=== PATIENT | female | born 1970 | race Caucasian/White ===

== ENCOUNTER 2024-10-31 19:06 | Inpatient (IN) ==
[2024-10-31] MEDS: MoRPHine SULFATE 4 MG/ML 1 ML CARP\\VIAL IV STA ×2 (19:46→23:16)
[2024-10-31] MEDS: ACETAMINOPHEN 1,000 MG/100 ML VIAL IV STA (19:46)
[2024-10-31 20:08] LABS: Basophils # (auto) 0.06 K/uL (0.00-0.20); Basophils % (auto) 0.5 %; Eosinophils # (auto) 0.14 K/uL (0.00-0.50); Eosinophils % (auto) 1.2 %; Hematocrit (blood only) 35.9 % (37.0-47.0); Hemoglobin 12.3 g/dl (12.0-16.0); Immature Granulocytes # (auto) 0.08 K/uL (0.01-0.20); Immature Granulocytes % (auto) 0.7 %; Lymphocytes # (auto) 2.24 K/uL (1.20-3.40); Lymphocytes % (auto) 18.9 %; Mean Corpuscular Hemoglobin 28.9 pg (25.0-34.0); Mean Corpuscular Hgb Conc 34.3 g/dL (32.0-36.0); Mean Corpuscular Volume 84.5 fL (80.0-100.0); Monocytes # (auto) 0.68 K/uL (0.11-0.59); Monocytes % (auto) 5.7 %; Neutrophils # (auto) 8.63 K/uL (1.40-6.50); Platelet Count 256 K/uL (130-400); RDW Coefficient of Variation 13.2 % (11.5-14.5); RDW Standard Deviation 40.3 fL (36.4-46.3); Red Blood Count 4.25 M/uL (4.20-5.40); White Blood Count 11.83 K/ul (4.8-10.8)
[2024-10-31 20:17] LABS: Albumin Globulin Ratio 1.4 (0.9-2); Albumin Level 3.8 gm/dl (3.4-5.0); BUN Creatinine Ratio 14.4 (10-20); Bilirubin,Total 0.4 mg/dl (0.2-1.0); Calcium 8.9 mg/dl (8.6-10.3); Creatinine Clr Calc Pharmacy 53.9 ml/min; Globulin 2.8 gm/dl (2.5-4.0); Potassium 2.9 mmol/L (3.5-5.1); Total Protein 6.6 gm/dl (6.0-8.3)
[2024-10-31 20:26] LABS: Prothrombin Time 10.9 Seconds (9.0-12.0)
--- NOTE | 2024-10-31 21:04 | XRay Report ---
Exam(s): XR LEFT KNEE, 1-2 views EXAM: XR Left Knee, 1 or 2 Views CLINICAL HISTORY: Reason for exam: pain. TECHNIQUE: Frontal and/or lateral views of the left knee. COMPARISON: No relevant prior studies available. FINDINGS: Bones/joints: Severe arthritic changes. Large joint effusion. No acute fracture or malalignment. IMPRESSION: 1. Severe arthritic changes. 2. Large joint effusion. Electronically signed by: Nghia Mcgee MD 10/31/24 21:02 PM
--- NOTE | 2024-10-31 21:04 | XRay Report ---
Exam(s): XR CXR 1 VIEW EXAM: XR Chest, 1 View CLINICAL HISTORY: Reason for exam: trauma. TECHNIQUE: Frontal view of the chest. COMPARISON: No relevant prior studies available. FINDINGS: Lungs: No consolidation. No overt edema. Pleural space: No pleural effusion. No pneumothorax. Heart: Cardiomegaly. Bones/joints: Scoliosis. Tubes, lines and devices: Spinal stimulator leads in place. IMPRESSION: No acute findings in the chest. Electronically signed by: Nghia Mcgee MD 10/31/24 21:03 PM
--- NOTE | 2024-10-31 21:07 | XRay Report ---
Exam(s): XR LEFT SHOULDER, 2+ views EXAM: XR Left Shoulder Complete, 2 or More Views CLINICAL HISTORY: Reason for exam: trauma. TECHNIQUE: Two or more views of the left shoulder. COMPARISON: No relevant prior studies available. FINDINGS: Bones/joints: Severe degenerative changes. No acute fracture or malalignment. High riding humeral head consistent with chronic underlying rotator cuff tearing. Soft tissues: Unremarkable. IMPRESSION: 1. No acute fracture or malalignment. 2. Severe degenerative changes. Electronically signed by: Nghia Mcgee MD 10/31/24 21:06 PM
--- NOTE | 2024-10-31 21:09 | XRay Report ---
Exam(s): XR HIP + PELVIS, 1 view EXAM: XR Left Hip With Pelvis When Performed, 2 or 3 Views CLINICAL HISTORY: Reason for exam: fall, injury. TECHNIQUE: Two or three views of the left hip with pelvis when performed. COMPARISON: No relevant prior studies available. FINDINGS: Bones/joints: No acute fracture or malalignment. Osteitis at the pubic symphysis. Moderate degenerative changes in the hips. IMPRESSION: No acute fracture or malalignment. Electronically signed by: Nghia Mcgee MD 10/31/24 21:07 PM
--- NOTE | 2024-10-31 22:21 | Emergency Department Note ---
Impression & Plan Fracture of ramus of left pubis, Fall, Acute pain of left shoulder, Knee pain, left, Hypokalemia, Prolonged QT interval ED Provider Note ED Provider Note NAME: KOKI CUNHA AGE:54 SEX: Female : 1970 ARRIVES VIA: EMS INFORMANT: Patient ED PROVIDER(s): Gladys Lewis DO CHIEF COMPLAINT: Left hip pain HPI: This is a 54-year-old female who presents to the emergency department with complaints of left hip pain after fall. Patient states her left knee which she has chronic problems with gave out and she fell to her left, landing on her hip and left shoulder. She denies head injury or loss of consciousness. She denies any use of antiplatelet or anticoagulation medications. Patient denies any radiation of pain further down the leg, denies any paresthesias. Patient states the pain seems to wrap around her left hip and come into her left groin. She denies any incontinence following this episode. She denies any chest pain, other abdominal pain, difficulty breathing, dizziness, vomiting, or vision changes. PAST MEDICAL HISTORY:See Below PAST SURGICAL HISTORY:See Below FAMILY HISTORY:See Below SOCIAL HISTORY:See Below HOME MEDICATIONS:See Below ALLERGIES:See Below VITALS:See Below PHYSICAL EXAMINATION: GENERAL: alert, unwell appearing, well nourished, moderate distress, non-toxic EYE EXAM: normal conjunctiva, PERRL and EOM's grossly intact OROPHARYNX: no exudate, no erythema, lips, buccal mucosa, and tongue normal and mucous membranes are dry NECK: supple, no nuchal rigidity, no adenopathy, non-tender LUNGS: Clear to auscultation. Normal chest wall mechanics, no w/r/r HEART: no murmurs, S1 normal and S2 normal ABDOMEN: abdomen soft, non-tender, normo-active bowel sounds, no masses, no rebound or guarding. BACK: Back is symmetrical on inspection and there is no deformity, no midline tenderness, no CVA tenderness. SKIN: no rashes, petechiae, orbruising UPPER EXTREMITIES: upper extremities are grossly normal. FROM, nml pulses b/l. LOWER EXTREMITIES: No pitting edema. FROM right lower extremity, nml pulses b/l. Sensation intact bilaterally. Mild joint effusion noted at the left knee, no overlying ecchymosis or erythema, pain with range of motion testing at the left hip, pain with palpation along the left lateral and left anterior hip, no obvious deformity of the left hip, patient does hold the left extremity externally rotated although it does not appear shortened NEURO EXAM: Normal sensorium, cranial nerves II-XII grossly intact, normal speech, no facial droop,nogross weakness of arms, no gross weakness of legs. Gross sensation intact. No ataxia. Vital Signs: reviewed and remarkable Differential Diagnosis: Fracture, subluxation, dislocation, contusion, ligamentous injury, neurovascular, compartment syndrome, rhabdomyolysis, as well as other pathologies. MEDICAL DECISION MAKING: This is a 54-year-old female who presents emergency department due to concern for left hip pain following a fall. No use of antiplatelet or anticoagulation medication. Patient was afebrile and hemodynamically stable on arrival. Labs drawn and sent, IV established, EKG and multiple x-rays performed at bedside interpreted me and patient monitored on telemetry. Initial x-rays read by outside radiology as negative however due to my concern for an occult pubic rami fracture I asked them to reread and they then confirmed the appearance of pubic rami fracture. Patient was given IV morphine here in addition to IV Tylenol and started on gentle IV fluid hydration. She did have improvement in her pain. I discussed the results with her. Due to concern for need for further pain control and orthopedic consultation despite likely nonoperative intervention, case discussed with the hospitalist for additional evaluation and management. Patient was neurovascularly intact throughout. Patient does have a history of chronic left knee problems, changes on the x-ray appeared chronic, no acute fracture or dislocation. I have a low suspicion for any additional occult traumatic injury. Patient had no other new or evolving concerns or complaints on repeat examination at bedside. Consultation(s): 2255: Discussed with Dr. Lopez, [facility] hospitalist team, for additional evaluation and management. ER Treatment Provided: See below Diagnostics Interpreted By Me: -ECG: Normal sinus at 68, normal axis, normal QRS, prolonged QTc of 638, no acute ST/T wave changes -Cardiac Monitoring: An order was placed for continuous cardiac monitoring. The monitor shows a rate of 70 with normal sinus rhythm. -Laboratory studies: As stated above and show below. -Imaging studies: X-ray Chest: A single view study of the chest was reviewed and was negative for cardiomegaly, focal infiltrate, effusion, pulmonary edema, or wide mediastinum. No obvious fracture or pneumothorax. X-ray left shoulder: No obvious fracture or dislocation X-ray pelvis/left hip: Pubic rami fracture noted, no other fracture dislocation noted at the proximal femur Triage Nursing Note Reviewed Prior/Outside Records Reviewed Past Med/Surg History Problem List (Updated 11/01/24 @ 18:21 by Rudy Vazquez DO) Osteoarthritis of left knee Complex psychiatric condition Acute kidney injury Ambulatory dysfunction Femoral condyle fracture Effusion, left knee Prolonged QT interval (Acute) Hypokalemia (Acute) Knee pain, left (Acute) Acute pain of left shoulder (Acute) Fall (Acute) Fracture of ramus of left pubis (Acute) Social History Smoking Status: Current every day smoker Tobacco Type: E-cigarettes / Vaping Second Hand Exposure: No; Do You Dip or Chew Tobacco: No; Hx Alcohol Use: Yes Alcohol type: other Hx Substance Use: No Preferred Language: Maltese Communication Ability: Effective 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 Beliefs That Will Affect Care: None Current Living Situation: Family Other Information That Helps Us Care for You: No Feels Safe at Home: Yes Safety Concerns: Feels Safe At This Time Assistive Devices: None Allergies Allergies Allergy/AdvReac Type Severity Reaction Status Date / Time No Known Allergies Allergy Verified 10/31/24 23:43 Home Meds Home Medications Medication Instructions Recorded Confirmed amlodipine 5 mg tablet 5 mg PO QAM 10/31/24 10/31/24 clonazepam 1 mg tablet 1 mg PO BID PRN Anxiety 10/31/24 10/31/24 dextroamphetamine-amphetamine 20 20 mg PO BID 10/31/24 11/01/24 mg tablet meloxicam 15 mg tablet 15 mg PO QAM 10/31/24 10/31/24 duloxetine 60 mg capsule,delayed 60 mg PO QPM 11/01/24 11/01/24 release gabapentin 800 mg tablet 800 mg PO AMPM 11/01/24 11/01/24 ketoconazole 2 % shampoo 1 applic topical Q3D 11/01/24 11/01/24 lurasidone 40 mg tablet 40 mg PO QPM 11/01/24 11/01/24 mometasone 0.1 % topical ointment 1 applic topical QAM 11/01/24 11/01/24 naproxen 500 mg tablet 1,000 mg PO BID PRN Pain 11/01/24 11/01/24 Results & Data (ED) Vital Signs Vital Signs - 24 hr 10/31/24 19:09 10/31/24 19:34 10/31/24 21:00 Temperature 36.8 C Temperature Source Oral Pulse Rate 68 72 Pulse Rate [Apical] 67 Pulse Rhythm [Apical] Regular Respiratory Rate 18 18 Respiratory Effort / Characteristics Non-Labored Respiratory Depth Normal Normal Blood Pressure 136/72 Blood Pressure [Right Arm] 142/92 H Blood Pressure Mean 93 Blood Pressure Mean [Right Arm] 108 Pulse Oximetry 90 92 Oxygen Delivery Method Room Air Nasal Cannula Oxygen Flow Rate Sepsis Recent Fever Within 48 Hours No Sepsis New/Unexplained Change in Mental Status No Sepsis Action Taken by Nursing No Action Required 10/31/24 23:03 10/31/24 23:04 11/01/24 01:00 Temperature Temperature Source Pulse Rate 68 69 70 Pulse Rate [Apical] Pulse Rhythm [Apical] Respiratory Rate 16 15 Respiratory Effort / Characteristics Respiratory Depth Blood Pressure 129/79 Blood Pressure [Right Arm] Blood Pressure Mean 95 Blood Pressure Mean [Right Arm] Pulse Oximetry 95 93 Oxygen Delivery Method Nasal Cannula Nasal Cannula Oxygen Flow Rate 2 2 Sepsis Recent Fever Within 48 Hours Sepsis New/Unexplained Change in Mental Status Sepsis Action Taken by Nursing 11/01/24 01:22 Temperature Temperature Source Pulse Rate Pulse Rate [Apical] 66 Pulse Rhythm [Apical] Respiratory Rate 16 Respiratory Effort / Characteristics Respiratory Depth Blood Pressure Blood Pressure [Right Arm] 140/84 Blood Pressure Mean Blood Pressure Mean [Right Arm] 102 Pulse Oximetry 94 Oxygen Delivery Method Nasal Cannula Oxygen Flow Rate 2 Sepsis Recent Fever Within 48 Hours Sepsis New/Unexplained Change in Mental Status Sepsis Action Taken by Nursing Laboratory Data 11/01/24 05:32 11/02/24 08:07 Lab Results 10/31/24 Range/Units 19:43 WBC 11.83 H (4.8-10.8) K/ul RBC 4.25 (4.20-5.40) M/uL Hgb 12.3 (12.0-16.0) g/dl Hct 35.9 L (37.0-47.0) % MCV 84.5 (80.0-100.0) fL MCH 28.9 (25.0-34.0) pg MCHC 34.3 (32.0-36.0) g/dL RDW Std Deviation 40.3 (36.4-46.3) fL RDW Coeff of Aditya 13.2 (11.5-14.5) % Plt Count 256 (130-400) K/uL MPV 10.0 (9.4-12.4) fL Immature Gran % (Auto) 0.7 % Neut % (Auto) 73.0 % Lymph % (Auto) 18.9 % [place] % (Auto) 5.7 % Eos % (Auto) 1.2 % Baso % (Auto) 0.5 % Neut # (Auto) 8.63 H (1.40-6.50) K/uL Lymph # (Auto) 2.24 (1.20-3.40) K/uL [place] # (Auto) 0.68 H (0.11-0.59) K/uL Eos # (Auto) 0.14 (0.00-0.50) K/uL Baso # (Auto) 0.06 (0.00-0.20) K/uL Immature Gran # (Auto) 0.08 (0.01-0.20) K/uL PT 10.9 (9.0-12.0) Seconds INR 1.0 (0.9-1.1) Sodium 142 (136-145) mmol/L Potassium 2.9 L (3.5-5.1) mmol/L Chloride 100 (98-107) mmol/L Carbon Dioxide 37 H (21-32) mmol/L Anion Gap 5 (3-11) BUN 21 (6-23) mg/dl Creatinine 1.46 H (0.6-1.2) mg/dl Est Cr Clr Drug Dosing 53.9 ml/min eGFR 41.99 BUN/Creatinine Ratio 14.4 (10-20) Glucose 119 H (70-99(Fasting)) mg/dl Calcium 8.9 (8.6-10.3) mg/dl Magnesium 2.0 (1.7-2.4) mg/dl Total Bilirubin 0.4 (0.2-1.0) mg/dl AST 16 (13-39) U/L ALT 11 (7-52) U/L Alkaline Phosphatase 125 H (34-104) U/L Total Protein 6.6 (6.0-8.3) gm/dl Albumin 3.8 (3.4-5.0) gm/dl Globulin 2.8 (2.5-4.0) gm/dl Albumin/Globulin Ratio 1.4 (0.9-2) Administered Medications Acetaminophen (Acetaminophen 500 Mg Tab) 1,000 mg PO TID PRN PRN Reason: Pain or Fever Stop: 12/01/24 02:48 Last Admin: 11/01/24 16:27 Dose: 1,000 mg Documented By: JANICE Amlodipine Besylate (Amlodipine Besylate 5 Mg Tab) 5 mg PO QAM RENUKA Stop: 12/01/24 08:59 Last Admin: 11/02/24 09:17 Dose: 5 mg Documented By: Admin: 11/01/24 08:41 Dose: 5 mg Documented By: JANICE Amphetamine/Dextroamphetamine (Dextroamphetamine/Amphetamine Ir 20 Mg Tab) 40 mg PO DAILY RENUKA Stop: 11/15/24 11:44 Last Admin: 11/02/24 09:27 Dose: 40 mg Documented By: Admin: 11/01/24 13:11 Dose: 40 mg Documented By: JANICE Clonazepam (Clonazepam 1 Mg Tab) 1 mg PO BID PRN PRN Reason: Anxiety Stop: 12/01/24 02:48 Last Admin: 11/01/24 11:20 Dose: 1 mg Documented By: JANICE Duloxetine HCl (Duloxetine Hcl 60 Mg Cap) 60 mg PO QPM RENUKA Stop: 12/01/24 20:59 Last Admin: 11/01/24 20:38 Dose: 60 mg Documented By: JERED Enoxaparin Sodium (Enoxaparin Inj 40 Mg/0.4 Ml Syr) 40 mg SQ Q24H RENUKA Stop: 12/01/24 08:59 Last Admin: 11/02/24 09:18 Dose: 40 mg Documented By: Admin: 11/01/24 08:41 Dose: 40 mg Documented By: JANICE Lurasidone HCl (Lurasidone Hcl 20 Mg Tab) 40 mg PO QPM RENUKA Stop: 12/01/24 20:59 Last Admin: 11/01/24 20:38 Dose: 40 mg Documented By: JERED Polyethylene Glycol (Polyethylene (Miralax) 17 Gm Pack) 17 gm PO DAILY RENUKA Stop: 12/02/24 08:59 Last Admin: 11/02/24 09:50 Dose: Not Given Documented By: SUELLEN Discontinued Medications Gabapentin (Gabapentin 800 Mg Tab) 800 mg PO BID RENUKA Stop: 12/01/24 08:59 Last Admin: 11/01/24 08:41 Dose: 800 mg Documented By: JANICE Gabapentin (Gabapentin 800 Mg Tab) 800 mg PO TID RENUKA Stop: 12/01/24 13:59 Last Admin: 11/02/24 09:17 Dose: 800 mg Documented By: Admin: 11/01/24 20:38 Dose: 800 mg Documented By: Admin: 11/01/24 13:12 Dose: Not Given Documented By: JANICE Hydromorphone HCl (Hydromorphone Inj 0.5 Mg/0.5 Ml Syr) 0.5 mg IV Q6H PRN PRN Reason: Severe Pain (Scale 7, 8, 9,10) Stop: 11/15/24 02:48 Last Admin: 11/01/24 08:46 Dose: 0.5 mg Documented By: Admin: 11/01/24 03:03 Dose: 0.5 mg Documented By: JERED Hydromorphone HCl (Hydromorphone Inj 0.5 Mg/0.5 Ml Syr) 0.5 mg IV NOW STA Stop: 11/01/24 11:37 Last Admin: 11/01/24 13:11 Dose: 0.5 mg Documented By: JANICE Acetaminophen (Ofirmev) 1,000 mg in 100 mls @ 400 mls/hr IV NOW STA Stop: 10/31/24 19:49 Last Infusion: 10/31/24 20:20 Dose: Infused Documented By: Admin: 10/31/24 19:46 Dose: 400 mls/hr Documented By: BRUNO Magnesium Sulfate/Dextrose (Magnesium Sulfate / D5w) 1 gm in 100 mls @ 100 mls/hr IV Q1H RENUKA Stop: 11/01/24 00:20 Last Infusion: 11/01/24 01:19 Dose: Infused Documented By: Admin: 11/01/24 00:10 Dose: 100 mls/hr Documented By: Infusion: 10/31/24 23:56 Dose: Infused Documented By: Admin: 10/31/24 22:56 Dose: 100 mls/hr Documented By: BRUNO Sodium Chloride (Nss) 1,000 mls @ 125 mls/hr IV .Q8H RENUKA Stop: 11/01/24 22:29 Last Infusion: 11/01/24 03:00 Dose: Infused Documented By: Admin: 10/31/24 22:56 Dose: 125 mls/hr Documented By: BRUNO Potassium Chloride (K Ney / Wtr) 10 meq in 100 mls @ 100 mls/hr IV Q1H RENUKA Stop: 11/01/24 04:44 Last Admin: 11/01/24 03:56 Dose: Not Given Documented By: Admin: 11/01/24 03:56 Dose: Not Given Documented By: Infusion: 11/01/24 03:52 Dose: Infused Documented By: Admin: 11/01/24 03:04 Dose: 100 mls/hr Documented By: Infusion: 11/01/24 02:21 Dose: Infused Documented By: Admin: 11/01/24 01:14 Dose: 100 mls/hr Documented By: ADRIEL Sodium Chloride (Nss) 1,000 mls @ 100 mls/hr IV .Q10H STA Stop: 11/01/24 12:51 Last Infusion: 11/01/24 08:43 Dose: Infused Documented By: Admin: 11/01/24 03:04 Dose: 100 mls/hr Documented By: JERED Morphine Sulfate (Morphine Sulfate 4 Mg/Ml 1 Ml Carp\Vial) 4 mg IV NOW STA Stop: 10/31/24 19:36 Last Admin: 10/31/24 19:46 Dose: 4 mg Documented By: BRUNO Morphine Sulfate (Morphine Sulfate 4 Mg/Ml 1 Ml Carp\Vial) 4 mg IV NOW STA Stop: 10/31/24 23:00 Last Admin: 10/31/24 23:16 Dose: 4 mg Documented By: ADRIEL Oxycodone HCl (Oxycodone Hcl Ir 5 Mg Tab (Immediate Release)) 10 mg PO Q4H PRN PRN Reason: Severe Pain (Scale 7, 8, 9,10) Stop: 11/15/24 11:01 Last Admin: 11/02/24 11:09 Dose: 10 mg Documented By: Admin: 11/02/24 05:14 Dose: 10 mg Documented By: Admin: 11/01/24 21:52 Dose: 10 mg Documented By: Admin: 11/01/24 16:28 Dose: 10 mg Documented By: Admin: 11/01/24 11:20 Dose: 10 mg Documented By: ES Potassium Chloride (Potassium Chloride Crtab 20 Meq Tabcr) 40 meq PO NOW STA Stop: 10/31/24 22:22 Last Admin: 10/31/24 22:54 Dose: 40 meq Documented By: EMB Potassium Chloride (Potassium Chloride Crtab 20 Meq Tabcr) 40 meq PO NOW STA Stop: 11/01/24 03:48 Last Admin: 11/01/24 03:59 Dose: 40 meq Documented By: JERED Potassium Chloride (Potassium Chloride Crtab 20 Meq Tabcr) 40 meq PO NOW STA Stop: 11/01/24 07:18 Last Admin: 11/01/24 08:40 Dose: 40 meq Documented By: ES Potassium Chloride (Potassium Chloride Crtab 20 Meq Tabcr) 40 meq PO ONE ONE Stop: 11/01/24 16:01 Last Admin: 11/01/24 16:27 Dose: 40 meq Documented By: ES Tramadol HCl (Tramadol Hcl 50 Mg Tablet) 50 mg PO BID RENUKA Stop: 12/01/24 11:14 Last Admin: 11/01/24 20:38 Dose: 50 mg Documented By: Admin: 11/01/24 13:10 Dose: 50 mg Documented By: ES Tramadol HCl (Tramadol Hcl 50 Mg Tablet) 50 mg PO TID RENUKA Stop: 12/02/24 08:59 Last Admin: 11/02/24 09:16 Dose: 50 mg Documented By: SUELLEN Imaging Data Radiologist's Impression: Hip/Pelvis X-Ray 10/31/24 19:14 Exam(s): XR HIP + PELVIS, 1 view EXAM: XR Left Hip With Pelvis When Performed, 2 or 3 Views CLINICAL HISTORY: Reason for exam: fall, injury. TECHNIQUE: Two or three views of the left hip with pelvis when performed. COMPARISON: No relevant prior studies available. FINDINGS: Bones/joints: No acute fracture or malalignment. Osteitis at the pubic symphysis. Moderate degenerative changes in the hips. IMPRESSION: No acute fracture or malalignment. Electronically signed by: Nghia Mcgee MD 10/31/24 21:07 PM Chest X-Ray 10/31/24 19:35 Exam(s): XR CXR 1 VIEW EXAM: XR Chest, 1 View CLINICAL HISTORY: Reason for exam: trauma. TECHNIQUE: Frontal view of the chest. COMPARISON: No relevant prior studies available. FINDINGS: Lungs: No consolidation. No overt edema. Pleural space: No pleural effusion. No pneumothorax. Heart: Cardiomegaly. Bones/joints: Scoliosis. Tubes, lines and devices: Spinal stimulator leads in place. IMPRESSION: No acute findings in the chest. Electronically signed by: Nghia Mcgee MD 10/31/24 21:03 PM Shoulder X-Ray 10/31/24 19:35 Exam(s): XR LEFT SHOULDER, 2+ views EXAM: XR Left Shoulder Complete, 2 or More Views CLINICAL HISTORY: Reason for exam: trauma. TECHNIQUE: Two or more views of the left shoulder. COMPARISON: No relevant prior studies available. FINDINGS: Bones/joints: Severe degenerative changes. No acute fracture or malalignment. High riding humeral head consistent with chronic underlying rotator cuff tearing. Soft tissues: Unremarkable. IMPRESSION: 1. No acute fracture or malalignment. 2. Severe degenerative changes. Electronically signed by: Nghia Mcgee MD 10/31/24 21:06 PM Knee X-Ray 10/31/24 19:51 Exam(s): XR LEFT KNEE, 1-2 views EXAM: XR Left Knee, 1 or 2 Views CLINICAL HISTORY: Reason for exam: pain. TECHNIQUE: Frontal and/or lateral views of the left knee. COMPARISON: No relevant prior studies available. FINDINGS: Bones/joints: Severe arthritic changes. Large joint effusion. No acute fracture or malalignment. IMPRESSION: 1. Severe arthritic changes. 2. Large joint effusion. Electronically signed by: Nghia Mcgee MD 10/31/24 21:02 PM Discharge Plan Visit Data Chief Complaint: Fall Stated Complaint: FELL DOWN 3 STEPS, HIP PAIN ED Provider: Gladys Lewis Discharge Problem: Fracture of ramus of left pubis, Fall, Acute pain of left shoulder, Knee pain, left, Hypokalemia, Prolonged QT interval Patient Disposition: Admitted As Inpatient Discharge Instructions Interventions: ED Discharge Assessment Last Done: 11/01/24 02:29
[2024-10-31] MEDS: POTASSIUM CHLORIDE CRTAB 20 MEQ TABCR PO STA (22:54)
[2024-10-31] MEDS: SODIUM CHLORIDE 0.9% 1,000 ML IV SCH (22:56)
[2024-10-31] MEDS: MAGNESIUM SULFATE / D5W 1 GM/100 ML BAG IV SCH (22:56)
[2024-11-01] MEDS: POTASSIUM CHLORIDE / WTR 10 MEQ/100 ML PLCT IV SCH (01:14)
--- NOTE | 2024-11-01 01:51 | History & Physical Report ---
Date of Service November 01, 2024 Assessment & Plan (1) Fracture of ramus of left pubis: Plan: 54-year-old female with past med history significant for hypertension, back pain, knee pain, history of SOURAV secondary to naproxen use, history of anxiety and depression and follows with psychiatrist at [place] presents with fall and found to have left pubic rami fracture. Patient says she has a lot of left knee pain. When she was trying to move, her left knee gave away and she fell on the left hip. Did not hit her head. No loss of consciousness. Has a lot of pain in left hip region. Denies any headache. No runny nose or sore throat. No cough. No chest pain or shortness of breath. Afebrile. No nausea. No abdominal pain. Normal bowel and bladder movements. Hemodynamics are okay. Fracture of ramus of left pubic Status post mechanical fall Pain control Ortho consult for further recommendation Severe left knee pain Severe arthritic changes. Large joint effusion Pain control Ortho consult for further recommendations Hypokalemia Potassium 2.9 Replacing Will follow repeat labs Prolonged QTc QTc 638 today EKG 05/2024 QTc 480 Replacing potassium Also received 2 g of IV magnesium Will follow repeat EKG Telemetry monitoring Consult cardiology in a.m. for further recommendations Hypertension Will continue amlodipine SOURAV Creatinine 1.4 Do not have baseline labs Will avoid nephrotoxic agents Getting fluids Follow repeat labs Depression anxiety Continue Klonopin as needed Will hold dextroamphetamine for prolonged QTc Will also hold duloxetine and lurasidone Will consult psychiatry to help with medications DVT prophylaxis Lovenox Disposition Telemetry Full code. History of Present Illness Chief Complaint: Status post fall and left pubic rami fracture Primary Care Provider: NO PCP 54-year-old female with past med history significant for hypertension, back pain, knee pain, history of SOURAV secondary to naproxen use, history of anxiety and depression and follows with psychiatrist at [place] presents with fall and found to have left pubic rami fracture. Patient says she has a lot of left knee pain. When she was trying to move,her left knee gave away and she fell on the left hip. Did not hit her head. No loss of consciousness. Has a lot of pain in left hip region. Denies any headache. No runny nose or sore throat. No cough. No chest pain or shortness of breath. Afebrile. No nausea. No abdominal pain. Normal bowel and bladder movements. Hemodynamics are okay. Past medical history. As mentioned above. Past surgical history. Back surgeries. Cholecystectomy. Social history. Vapes. Denies alcohol use. Family history. Mother had diabetes and heart disease. Allergies Allergy/AdvReac Type Severity Reaction Status Date / Time No Known Allergies Allergy Verified 10/31/24 23:43 Home Medications Medication Instructions Recorded Confirmed Type amlodipine 5 mg tablet 5 mg PO QAM 10/31/24 10/31/24 History clonazepam 1 mg tablet 1 mg PO BID PRN Anxiety 10/31/24 10/31/24 History dextroamphetamine-amphetamine 20 20 mg PO BID 10/31/24 11/01/24 History mg tablet meloxicam 15 mg tablet 15 mg PO QAM 10/31/24 10/31/24 History duloxetine 60 mg capsule,delayed 60 mg PO QPM 11/01/24 11/01/24 History release gabapentin 800 mg tablet 800 mg PO AMPM 11/01/24 11/01/24 History ketoconazole 2 % shampoo 1 applic topical Q3D 11/01/24 11/01/24 History lurasidone 40 mg tablet 40 mg PO QPM 11/01/24 11/01/24 History mometasone 0.1 % topical ointment 1 applic topical QAM 11/01/24 11/01/24 History naproxen 500 mg tablet 1,000 mg PO BID PRN Pain 11/01/24 11/01/24 History Past Med/Surg History Problem List (Updated 10/31/24 @ 23:25 by Gladys Lewis, ) Prolonged QT interval (Acute) Hypokalemia (Acute) Knee pain, left (Acute) Acute pain of left shoulder (Acute) Fall (Acute) Fracture of ramus of left pubis (Acute) Social History Smoking Status: Current every day smoker Tobacco Type: E-cigarettes / Vaping Second Hand Exposure: No; Do You Dip or Chew Tobacco: No; Hx Alcohol Use: Yes Alcohol type: other Hx Substance Use: No Preferred Language: Yoruba Communication Ability: Effective [employer] Supervisor Required: No Beliefs That Will Affect Care: None Current Living Situation: Family Other Information That Helps Us Care for You: No Feels Safe at Home: Yes Safety Concerns: Feels Safe At This Time Assistive Devices: Glasses Review of Systems Review of Systems: All systems reviewed & are unremarkable except as noted in HPI & below Physical Exam Physical Exam: General-Not in acute distress Head- atraumatic Eyes- PERRL. ENT- oropharynx clear Neck- supple, no JVD. Lungs- clear to auscultation no wheezing or crackles Heart- regular rate and rhythm; no murmur, no gallop. Abdomen- normal bowel sounds, soft, nontender, no distension Extremities- no pretibial edema, no erythema seen Neuro- alert, oriented PERRL, no facial palsy; no dysarthria. Results & Data Results & Data Vital Signs (Past 12 Hours) Vital Signs Temp Pulse Pulse Resp BP BP Pulse Ox 11/01/24 01:22 66 16 140/84 94 11/01/24 01:00 70 15 93 10/31/24 23:04 69 10/31/24 23:03 68 16 129/79 95 10/31/24 21:00 67 18 142/92 H 92 10/31/24 19:34 72 10/31/24 19:09 36.8 C 68 18 136/72 90 O2 Del Method O2 Flow Rate 11/01/24 01:22 Nasal Cannula 2 11/01/24 01:00 Nasal Cannula 2 10/31/24 23:04 10/31/24 23:03 Nasal Cannula 2 10/31/24 21:00 Nasal Cannula 10/31/24 19:34 10/31/24 19:09 Room Air Diagnostic Findings Laboratory Results WBC 11.83 K/ul (4.8-10.8) H 10/31/24 19:43 RBC 4.25 M/uL (4.20-5.40) 10/31/24 19:43 Hgb 12.3 g/dl (12.0-16.0) 10/31/24 19:43 Hct 35.9 % (37.0-47.0) L 10/31/24 19:43 MCV 84.5 fL (80.0-100.0) 10/31/24 19:43 MCH 28.9 pg (25.0-34.0) 10/31/24 19:43 MCHC 34.3 g/dL (32.0-36.0) 10/31/24 19:43 RDW Std Deviation 40.3 fL (36.4-46.3) 10/31/24 19:43 RDW Coeff of Aditya 13.2 % (11.5-14.5) 10/31/24 19:43 Plt Count 256 K/uL (130-400) 10/31/24 19:43 MPV 10.0 fL (9.4-12.4) 10/31/24 19:43 Immature Gran % (Auto) 0.7 % 10/31/24 19:43 Neut % (Auto) 73.0 % 10/31/24 19:43 Lymph % (Auto) 18.9 % 10/31/24 19:43 Mariposa % (Auto) 5.7 % 10/31/24 19:43 Eos % (Auto) 1.2 % 10/31/24 19:43 Baso % (Auto) 0.5 % 10/31/24 19:43 Neut # (Auto) 8.63 K/uL (1.40-6.50) H 10/31/24 19:43 Lymph # (Auto) 2.24 K/uL (1.20-3.40) 10/31/24 19:43 Mariposa # (Auto) 0.68 K/uL (0.11-0.59) H 10/31/24 19:43 Eos # (Auto) 0.14 K/uL (0.00-0.50) 10/31/24 19:43 Baso # (Auto) 0.06 K/uL (0.00-0.20) 10/31/24 19:43 Immature Gran # (Auto) 0.08 K/uL (0.01-0.20) 10/31/24 19:43 PT 10.9 Seconds (9.0-12.0) 10/31/24 19:43 INR 1.0 (0.9-1.1) 10/31/24 19:43 Sodium 142 mmol/L (136-145) 10/31/24 19:43 Potassium 2.9 mmol/L (3.5-5.1) L 10/31/24 19:43 Chloride 100 mmol/L (98-107) 10/31/24 19:43 Carbon Dioxide 37 mmol/L (21-32) H 10/31/24 19:43 Anion Gap 5 (3-11) 10/31/24 19:43 BUN 21 mg/dl (6-23) 10/31/24 19:43 Creatinine 1.46 mg/dl (0.6-1.2) H 10/31/24 19:43 Est Cr Clr Drug Dosing 53.9 ml/min 10/31/24 19:43 eGFR 41.99 10/31/24 19:43 BUN/Creatinine Ratio 14.4 (10-20) 10/31/24 19:43 Glucose 119 mg/dl (70-99(Fasting)) H 10/31/24 19:43 Calcium 8.9 mg/dl (8.6-10.3) 10/31/24 19:43 Magnesium 2.0 mg/dl (1.7-2.4) 10/31/24 19:43 Total Bilirubin 0.4 mg/dl (0.2-1.0) 10/31/24 19:43 AST 16 U/L (13-39) 10/31/24 19:43 ALT 11 U/L (7-52) 10/31/24 19:43 Alkaline Phosphatase 125 U/L (34-104) H 10/31/24 19:43 Total Protein 6.6 gm/dl (6.0-8.3) 10/31/24 19:43 Albumin 3.8 gm/dl (3.4-5.0) 10/31/24 19:43 Globulin 2.8 gm/dl (2.5-4.0) 10/31/24 19:43 Albumin/Globulin Ratio 1.4 (0.9-2) 10/31/24 19:43 Impressions Hip/Pelvis X-Ray 10/31/24 19:14 Exam(s): XR HIP + PELVIS, 1 view EXAM: XR Left Hip With Pelvis When Performed, 2 or 3 Views CLINICAL HISTORY: Reason for exam: fall, injury. TECHNIQUE: Two or three views of the left hip with pelvis when performed. COMPARISON: No relevant prior studies available. FINDINGS: Bones/joints: No acute fracture or malalignment. Osteitis at the pubic symphysis. Moderate degenerative changes in the hips. IMPRESSION: No acute fracture or malalignment. Electronically signed by: Nghia Mcgee MD 10/31/24 21:07 PM Chest X-Ray 10/31/24 19:35 Exam(s): XR CXR 1 VIEW EXAM: XR Chest, 1 View CLINICAL HISTORY: Reason for exam: trauma. TECHNIQUE: Frontal view of the chest. COMPARISON: No relevant prior studies available. FINDINGS: Lungs: No consolidation. No overt edema. Pleural space: No pleural effusion. No pneumothorax. Heart: Cardiomegaly. Bones/joints: Scoliosis. Tubes, lines and devices: Spinal stimulator leads in place. IMPRESSION: No acute findings in the chest. Electronically signed by: Nghia Mcgee MD 10/31/24 21:03 PM Shoulder X-Ray 10/31/24 19:35 Exam(s): XR LEFT SHOULDER, 2+ views EXAM: XR Left Shoulder Complete, 2 or More Views CLINICAL HISTORY: Reason for exam: trauma. TECHNIQUE: Two or more views of the left shoulder. COMPARISON: No relevant prior studies available. FINDINGS: Bones/joints: Severe degenerative changes. No acute fracture or malalignment. High riding humeral head consistent with chronic underlying rotator cuff tearing. Soft tissues: Unremarkable. IMPRESSION: 1. No acute fracture or malalignment. 2. Severe degenerative changes. Electronically signed by: Nghia Mcgee MD 10/31/24 21:06 PM Knee X-Ray 10/31/24 19:51 Exam(s): XR LEFT KNEE, 1-2 views EXAM: XR Left Knee, 1 or 2 Views CLINICAL HISTORY: Reason for exam: pain. TECHNIQUE: Frontal and/or lateral views of the left knee. COMPARISON: No relevant prior studies available. FINDINGS: Bones/joints: Severe arthritic changes. Large joint effusion. No acute fracture or malalignment. IMPRESSION: 1. Severe arthritic changes. 2. Large joint effusion. Electronically signed by: Nghia Mcgee MD 10/31/24 21:02 PM ECG Additional Comments: ECG. Normal sinus rhythm rate of 68. Prolonged QTc at 638 Code Status & VTE Plan VTE Prophylaxis Plan VTE Prophylaxis will be ordered: Yes
[2024-11-01] MEDS ORDERED: NITROGLYCERIN SL 0.4 MG/TAB TAB SL PRN (02:49)
[2024-11-01] MEDS ORDERED: HYDROmorphone INJ 0.5 MG/0.5 ML SYR IV PRN (02:49)
[2024-11-01] MEDS ORDERED: POLYETHYLENE (MIRALAX) 17 GM PACK PO PRN (02:49)
[2024-11-01] MEDS ORDERED: ACETAMINOPHEN 325 MG TAB PO PRN (02:49)
[2024-11-01] MEDS: HYDROmorphone INJ 0.5 MG/0.5 ML SYR IV PRN (03:03)
[2024-11-01] MEDS: SODIUM CHLORIDE 0.9% 1,000 ML IV STA (03:04)
[2024-11-01] MEDS: POTASSIUM CHLORIDE CRTAB 20 MEQ TABCR PO STA ×2 (03:59→08:40)
[2024-11-01 06:24] LABS: Basophils # (auto) 0.05 K/uL (0.00-0.20); Basophils % (auto) 0.7 %; Eosinophils # (auto) 0.16 K/uL (0.00-0.50); Eosinophils % (auto) 2.1 %; Hemoglobin 11.6 g/dl (12.0-16.0); Immature Granulocytes # (auto) 0.03 K/uL (0.01-0.20); Immature Granulocytes % (auto) 0.4 %; Lymphocytes # (auto) 2.26 K/uL (1.20-3.40); Lymphocytes % (auto) 30.3 %; Mean Corpuscular Hemoglobin 27.6 pg (25.0-34.0); Mean Corpuscular Hgb Conc 32.2 g/dL (32.0-36.0); Mean Corpuscular Volume 85.5 fL (80.0-100.0); Mean Platelet Volume 9.7 fL (9.4-12.4); Monocytes # (auto) 0.57 K/uL (0.11-0.59); Monocytes % (auto) 7.6 %; Neutrophils # (auto) 4.39 K/uL (1.40-6.50); Neutrophils % (auto) 58.9 %; Platelet Count 235 K/uL (130-400); RDW Coefficient of Variation 13.2 % (11.5-14.5); RDW Standard Deviation 41.1 fL (36.4-46.3); Red Blood Count 4.21 M/uL (4.20-5.40); White Blood Count 7.46 K/ul (4.8-10.8)
[2024-11-01 06:47] LABS: Anion Gap 2 (3-11); BUN Creatinine Ratio 14.7 (10-20); Blood Urea Nitrogen 19 mg/dl (6-23); Calcium 8.6 mg/dl (8.6-10.3); Carbon Dioxide 37 mmol/L (21-32); Chloride 102 mmol/L (98-107); Creatinine Clr Calc Pharmacy 59.6 ml/min; Glucose 89 mg/dl (70-99(Fasting)); Potassium 3.2 mmol/L (3.5-5.1); Sodium 141 mmol/L (136-145)
[2024-11-01 06:53] LABS: Troponin I High Sensitivity < 2.3 pg/ml (0-14)
[2024-11-01 06:59] LABS: Magnesium 2.4 mg/dl (1.7-2.4)
--- NOTE | 2024-11-01 08:34 | Electrocardiogram Report ---
Test Reason : Blood Pressure : */* mmHG Vent. Rate : 68 BPM Atrial Rate : 68 BPM P-R Int : 152 ms QRS Dur : 86 ms QT Int : 600 ms P-R-T Axes : 58 20 69 degrees QTcB Int : 638 ms Normal sinus rhythm Incomplete right bundle branch block Prolonged QT Abnormal ECG When compared with ECG of 25-May-2024 13:50, QT has lengthened Confirmed by Zuhair Thacker ([id number]) on 11/01/2024 8:34:15 AM Referred By: REFERRED SELF Confirmed By: Zuhair Thacker
[2024-11-01] MEDS: ENOXAPARIN INJ 40 MG/0.4 ML SYR SQ SCH (08:41)
[2024-11-01] MEDS: amLODIPine BESYLATE 5 MG TAB PO SCH (08:41)
[2024-11-01] MEDS: GABAPENTIN 800 MG TAB PO SCH ×2 (08:41→13:11)
--- OUTSIDE RECORDS SUMMARY | 2024-11-01 10:44 | External Medical Summary | Summary of Care ---
Author Name Unknown Organization [facility] Address [address] [place] [address] Phone [phone] Care Team Providers Care Deputy K 9 Name Role Phone Christi Brantley MD Primary Care Provid er Encounter Details Date Type Department Care Team (Latest Contact Info) Description 10/19/2024 3:30 PM EDT Telemedicine Orthopaedics [facility] [address] [place] [phone] Willie Coburn PA-C [address] [place] [phone] Effusion of left knee*; Primary osteoarthritis of left knee Allergies No known active allergiesdocumented as of this encounter (statuses as of 10/19/2024) Medications Amphetamine-Dex troamphetamine 20 MG Oral Tablet (Adderall) Take 1 Tablet by mouth in the morning. Active Ketoconazole 2 % External Shampoo (Nizoral) Apply topically to affected area every 3 days. Shampoo twice a week 600 mL 3 5 Active Mometasone Furoate 0.1 % External Ointment Apply 1 g topically to affected area in the morning. 45 g 3 5 Active clonazePAM 1 MG Oral Tablet (KlonoPIN) TAKE 1 MG BY MOUTH TWICE A DAY, NEEDED FOR ANXIETY Active Gabapentin 800 MG Oral Tablet (Neurontin) Take 1 Tablet by mouth in the morning and 1 Tablet before bedtime. Active Lurasidone HCl 20 MG Oral Tablet (Latuda) Take 1 Tablet by mouth in the morning. Active OLANZapine 5 MG Oral Tablet (zyPREXA) Take 1 Tablet by mouth every night at bedtime. Active Methadone 50 mg/ml oral soln (ECH) Take 2.1 mL by mouth in the morning. [facility]. Active amLODIPine Besylate 5 MG Oral Tablet (Norvasc)Indica tions:HTN, goal below 140/90 Take 1 Tablet by mouth in the morning. 30 Tablet 11 5 Active Meloxicam 15 MG Oral Tablet (Mobic)Indicati ons:Polyarthrit is,Chronic midline low back pain without sciatica,Knee effusion, left,H/O spinal fusion,Methadon e dependence (HCC) Take 1 Tablet by mouth in the morning. for pain.. 30 Tablet 5 5 Active Vitamin D3 1.25 MG (91664 UT) Oral CapsuleIndicati ons:Hypovitamin osis D Take 1 Capsule by mouth once a week. 12 Capsule 5 01/01/20 25 Active documented as of this encounter (statuses as of 10/19/2024) Active Problems Problem Noted Date Diagnosed Date SOURAV (acute kidney injury) 10/02/2024 Dyslipidemia, goal LDL below 130 10/02/2024 HTN, goal below 140/90 09/25/2024 Knee effusion, left 09/25/2024 Chronic midline low back pain without sciatica 0 09/25/2024 H/O spinal fusion 09/25/2024 Other idiopathic scoliosis, lumbar region 2024 Methadone dependence 09/25/2024 Class 2 severe obesity with serious comorbidity and body mass index (BMI) of 35.0 to 35.9 in adult 09/25/2024 Polyarthritis 09/25/2024 Psoriasis 09/05/2024 Dry skin dermatitis 09/05/2024 JERONIMO (generalized anxiety disorder) 09/05/2024 ADHD (attention deficit hype ractivity disorder), combined type 09/05/2024 Episode of recurrent major depressive disorder 0 09/05/2024 documented as of this encounter (statuses as of 10/19/2024) Social History Tobacco Use Types Packs/Day Years Used Date Smoking Tobacco: Never Smokeless Tobacco: Never Alcohol Use Standard Drinks/Week Comments Never 0 (1 standard drink = 0.6 oz pur e alcohol) PHQ-2 Answer Date Recorded PHQ Adult Total Score 0 09/25/2024 Comments No Sex and Gender Information Value Date Recorded Sex Assigned at Not on file Legal Sex Female 12:18 PM EST Gender Identity Not on file Sexual Orientation Not on file documented as of this encounter Progress Notes * Willie Coburn PA-C - 10/19/2024 3:16 PM EDT Visit Disposition: Routine follow-up Total call duration was 0 minutes. No answer for telephonic visit to discuss response for left knee swelling. More than happy to reschedule visit or how the patient update us accordingly. documented in this encounter Plan of Treatment Upcoming Encounters Date Type Department Care Team (Late st Contact Info) Description 11/17/2024 2:30 PM EDT Office Visit Orthopaedics Spine Surgery [facility] [address] [place] [phone] Evangelista Lujan MD [address] [place] [phone] 12/14/2024 2:00 PM EDT Office Visit Pharmacy, [facility] [address] [place] [phone] [facility] [address] [place] [phone] 12/26/2024 1:40 PM EDT Office Visit [facility] [address] [phone] Christi Brantley MD [address] [place] [address] Health Maintenance Due Date Last Done Comments Albumin/Creatinine Ratio 1986 DTap/Tdap Vaccines (1 - Tdap) 1987 Hepatitis B Vaccine (1 of 3 - 19+ 3-dose series) 1987 Pap Smear 1989 Cervical Cancer Screening 1998 HPV/Co-Test 1998 Mammogram 2008 Cologuard 2013 Colonoscopy 2013 Colorectal Cancer Screening 2013 Fecal Occult Blood Test 2013 Sigmoidoscopy 2013 Pneumococcal Vaccine: 50+ Years (1 of 1 - PCV) 2018 Zoster Vaccines (1 of 2) 2018 COVID-19 Vaccine (1 - 2023-2 5 season) 2024 Influenza Vaccine (FLU shot) (#1) 2024 Depression Monitoring 09/25/2025 09/25/2024 GFR 09/25/2025 09/25/2024 Diabetes Screening 09/25/2027 09/25/2024, 09/25/2024 Lipid Panel 09/25/2029 09/25/2024 HPV (Gardasil) Vaccine Aged Out No lo nger eligible based on patient's age to complete this topic MENINGOCOCCAL (MENACTRA/MENVEO) Aged Out No longer eligible b ased on patient's age to complete this topic Meningitis B Vaccine (Bexsero/Trumemba) Aged Out No longer eligible b ased on patient's age to complete this topic documented as of this encounter Medical Devices Not on filedocumented as of this encounter Visit Diagnoses Diagnosis Effusion of left knee- Primary Effusion of lower leg joint Primary osteoarthritis of left knee Primary localized osteoarthrosis, lower leg documented in this encounter Care Teams Deputy K 9 Relationship Specialty Start Date End Date Christi Brantley MD [address] [phone] PCP - General Family Medicine 09/25/24 documented as of this encounter
--- OUTSIDE RECORDS SUMMARY | 2024-11-01 10:44 | External Medical Summary | Summary of Care ---
Author Name Unknown Organization [facility] Address [address] [place] [address] Phone [phone] Care Team Providers Care Mail Distribution Clerk Name Role Phone Christi Brantley MD Primary Care Provid er Reason for Visit * Reason Onset Date Comments Referral 10/03/2024 [facility] Pain Manage ment Encounter Details Date Type Department Care Team (Late st Contact Info) Description 10/03/2024 Telephone Centralized Clinical Pharmacy Services, Alaina Hatch [address] [place] [address] [place] [phone] Christi Brantley MD [address] [place] [address] [place] [phone] Referral ([facility] Pain Management ) Allergies No known active allergiesdocumented as of this encounter (statuses as of 10/03/2024) Medications Amphetamine-Dex troamphetamine 20 MG Oral Tablet [...] 2.1 mL by mouth in the morning. [facility]. Active amLODIPine Besylate 5 MG Oral Tablet [...] 5 5 Active Vitamin D3 1.25 MG (72448 UT) Oral CapsuleIndicati ons:Hypovitamin osis D Take 1 Capsule by mouth once a week. 12 Capsule 5 01/01/20 25 Active documented as of this encounter (statuses as of 10/03/2024) Active Problems Problem Noted Date Diagnosed Date [...] as of this encounter (statuses as of 10/03/2024) Social History Tobacco Use Types Packs/Day Years [...] on file documented as of this encounter Miscellaneous Notes * Telephone Encounter - Umm Treviño RPh - 10/03/2024 12:24 PM EST Referral reviewed and is appropriate. Please schedule. Initial appt length: 60 minutes Patient referred to [facility] clinic for Pain Management Regimen optimization on behalf of Dr. Brantley. Referral reviewed and relevant pre-visit information listed below: Pain Follow-up as scheduled. Umm Treviño RPh 10/03/2024, 12:24 PM * Telephone Encounter - Marlyn Chamorro instrument repairer helper - 10/03/2024 11:55 AM EST Comments Pharmacist Medication Therapy Management: Minimum frequency patient should be seen in person for medication management: as appropriate per clinical condition and patient status By my signature, I understand that my patient Ericka Proctor will have her medication therapy managed by the [facility] Medication Therapy Disease Management Clinic ([facility]) per established policies, procedures, and protocols. I also certify that this referral may serve as an initiation of service forthe management of drug therapy in the above noted patient. [facility] providers will be responsible for scheduling patient visits, obtaining appropriate laboratory studies, and adjusting medication management therapy per patient's need, in addition to those roles spelled out in the clinic policy, procedures, and drug management protocols. I understand that the service provided by the [facility] Clinic is voluntary and have informed patient that they can refuse the service at their discretion. I am aware that the [facility] will provide me with a copy of the patient encounter via my [employer]. I authorize the [facility] Clinic to carry out these activities on my behalf. I consider this program to be a necessary part of the patient's medical care. Christi Brantley MD Order Specific Questions Referral Priority Within 10 days (routine) Where should this appointment be scheduled? [facility] Referring Provider Role: Primary Care Reason for Referral: Pain Pain Diagnosis: Back pain Pain Treatment Options: Non-opioids only Pain Treatment Goal: Med Optimization documented in this encounter Plan of Treatment Upcoming Encounters Date Type Department Care Team (Late st Contact Info) Description 10/10/2024 1:00 PM EDT Nurse Only Ancillary Department, Clarissa Rea [address] [phone] Clarissa Nurse [address] [phone] 10/19/2024 3:30 PM EDT Telemedicine Orthopaedics [facility] [address] [place] [phone] Willie Coburn PA-C [address] [place] [phone] 11/17/2024 2:30 PM EDT Office Visit Orthopaedics Spine Surgery [facility] [address] [place] [phone] Evangelista Lujan MD [address] [place] [address] 12/26/2024 1:40 PM EDT Office Visit Family Practice, [facility] [place] [address] [address] [phone] Christi Brantley MD [address] [address] Health Maintenance Due Date Last Done Comments [...] Not on filedocumented as of this encounter Care Teams Mail Distribution Clerk Relationship Specialty Start Date End Date Christi Brantley MD [facility] [place] [phone] PCP - General Family Medicine 09/25/24 documented as of this encounter
--- OUTSIDE RECORDS SUMMARY | 2024-11-01 10:45 | External Medical Summary | Summary of Care ---
Author Name Unknown Organization [facility] Address [address] [place] [address] Phone [phone] Care Team Providers Care Buffing Wheel Presser Name Role Phone Christi Brantley MD Primary Care Provid er Reason for Visit * Reason Comments NEW PATIENT New pt presents for L knee * Evaluate & Treat - Unlimited Visits (Within 10 days (routine)) - Pending Review Specialty Diagnoses / Procedures Referred By Contac t Referred To Contact Orthopaedic Surgery / Orthopedics Diagnoses Knee effusion, left Methadone dependence (HCC) Christi Brantley MD [address] [place] [address] Phone: tel: fax: Referral ID Status Reason Start Date Expiration Date Visits Requested Visits Authorized [id number] Pending Review Specialty Services Required 09/25/[phone] Encounter Details Date Type Department Care Team (Latest Contact Info) Description 09/28/2024 1:00 PM EST Office Visit Orthopaedics [facility] [address] [place] [phone] Willie Coburn PA-C [address] [place] [phone] Effusion of left knee*; Primary osteoarthritis of left knee Allergies No known active allergiesdocumented as of this encounter (statuses as of 09/28/2024) Medications Amphetamine-Dex troamphetamine 20 MG Oral Tablet [...] 2.1 mL by mouth in the morning. [facility]. Active amLODIPine Besylate 5 MG Oral Tablet (Norvasc)Indica tions:HTN, goal below 140/90 Take 1 Tablet by mouth in the morning. 30 Tablet 11 5 Active Meloxicam 15 MG Oral Tablet (Mobic)Indicati ons:Polyarthrit is,Chronic midline low back pain without sciatica,Knee effusion, left,H/O spinal fusion,Methadon e dependence (HCC) Take 1 Tablet by mouth in the morning. for pain.. 30 Tablet 5 Active Hospital, Clinic, or Other Facility Administered Medication Ordered Dose Route Frequency Start Date End Date Status lidocaine 1% 1 mL - triamcinolone acetonide 40 mg/mL 1 mL inj 2 mLIndications:Primary osteoarthritis of left knee,Effusion of left knee 2 mL IJ ONCE 09/28/2024 5 Ended documented as of this encounter (statuses as of 09/28/2024) Active Problems Problem Noted Date Diagnosed Date HTN, goal below 140/90 09/25/2024 Knee effusion, [...] as of this encounter (statuses as of 09/28/2024) Social History Tobacco Use Types Packs/Day Years [...] Progress Notes * Willie Coburn PA-C - 09/28/2024 2:00 PM ESTAssociated Order(s): LG Joint Inj/Arthro: L knee Post-Procedure Diagnose(s): Effusion of left knee; Primary osteoarthritis of left knee Jorge Proctor is a 54 year old female. Chief Complaint Patient presents with • NEW PATIENT New pt presents for L knee HPI: New patient referred regarding left knee pain and swelling. Reports about a year ago experiencing a pop in the left knee. She has a brace that she obtained [id number]. She has not had any formal treatments in the left knee. She also deals with low back issues and takes Aleve that also assist with her knee issues. Of note, the patient reports she has been taking Aleve at an advanced rate. I did spend extra time today counseling the patient on avoiding any type of acute kidney injury secondary to increased NSAID use/overuse. The patient is aware, understanding in his not confirm nor deny she will change her frequency and dosage of that medication. Regarding her left knee, denies any redness associated with this, no abrasions or lacerations. No calf pain. No numbness or tingling distally. No fevers or chills. Denies any tick bites or rashes. We will need x-rays reviewed today that were obtained 3 days ago. PMH: Patient Active Problem List Diagnosis • Psoriasis • Dry skin dermatitis • JERONIMO (generalized anxiety disorder) • ADHD (attention deficit hyperactivity disorder), combined type • Episode of recurrent major depressive disorder (HCC) • HTN, goal below 140/90 • Knee effusion, left • Chronic midline low back pain without sciatica • H/O spinal fusion • Other idiopathic scoliosis, lumbar region • Methadone dependence ([facility]) • Class 2 severe obesity with serious comorbidity and body mass index (BMI) of 35.0 to 35.9 in adult ([facility]) • Polyarthritis Current Outpatient Medications Medication Sig Dispense Refill • Amphetamine-Dextroamphetamine 20 MG Oral Tablet (Adderall) Take 1 Tablet by mouth in the morning. • Ketoconazole 2 % External Shampoo (Nizoral) Apply topically to affected area every 3 days. Shampoo twice a week 600 mL 3 • Mometasone Furoate 0.1 % External Ointment Apply 1 g topically to affected area in the morning.45 g 3 • clonazePAM 1 MG Oral Tablet (KlonoPIN) TAKE 1 MG BY MOUTH TWICE A DAY, NEEDED FOR ANXIETY • Gabapentin 800 MG Oral Tablet (Neurontin) Take 1 Tablet by mouth in the morning and 1 Tablet before bedtime. • Lurasidone HCl 20 MG Oral Tablet (Latuda) Take 1 Tablet by mouth in the morning. • OLANZapine 5 MG Oral Tablet (zyPREXA) Take 1 Tablet by mouth every night at bedtime. • Methadone 50 mg/ml oral soln (ECH) Take 2.1 mL by mouth in the morning. [facility]. • amLODIPine Besylate 5 MG Oral Tablet (Norvasc) Take 1 Tablet by mouth in the morning. 30 [id number] • Meloxicam 15 MG Oral Tablet (Mobic) Take 1 Tablet by mouth in the morning. for pain.. 30 Tablet5 No current facility-administered medications for this visit. No past medical history on file. No past surgical history on file. Review of patient's allergies indicates: No Known Allergies No family history on file. No family status information on file. Social History Socioeconomic History • Marital status: Spouse name: Not on file • Number of children: Not on file • Years of education: Not on file • Highest education level: Not on file Occupational History • Not on file Tobacco Use • Smoking status: Never • Smokeless tobacco: Never Vaping Use • Vaping status: Every Day • Substances: Nicotine Substance and Sexual Activity • Alcohol use: Never • Drug use: Never • Sexual activity: Not on file Other Topics Concern • Not on file Social History Narrative • Not on file Social Needs Financial Resource Strain: Not on file Food Insecurity: Not on file Transportation Needs: Not on file Social Connections: Not on file Housing Stability: Not on file Objective There were no vitals taken for this visit. complete review of systems negative General: alert and oriented x3 female, no acute distress, appears currently stated age, pleasant, well nourished Skin: Left knee does reveal a moderate effusion, the left knee does not reveal any erythema, ecchymosis, abrasion, laceration, skin breakdown otherwise Neurovascular: Left lower extremity is neurovascularly intact with good sensation strength throughout, calf supple nontender, toes were mobile, +5 strength dorsi and plantar flexion of the foot Musculoskeletal: Left knee ROM 0, 100 secondary to stiffness at endpoints reporting the swelling inher knee that is preventing her from flexing further, generalized jointline tenderness, advanced crepitation noted in PFJ, femoral condyles are tender as well. Ligamentously stable regarding cruciateand collateral ligaments. Extensor mechanism intact. No obvious cystic change or masses the popliteal fossa. Pes anserine bursa and patellar tendon nontender. Hip and ankle atraumatic X-rays of the left knee four views reveals advanced degenerative changes tricompartmental most impressive along medial joint line that has [id number]. Osteophytosis that has advanced lateral joint line and patellofemoral joint. No acute findings such as fracture dislocation or subluxation. Unableto identify any type of obvious cystic changes or masses in the bone. Official radiology report to follow accordingly and we listed in the patient's chart under imaging. Personal interpretation and documentation regarding today's plain film radiographs performed by myself. ASSESSMENT/PLAN: Effusion of left knee (Primary) - CRYSTAL ANALYSIS, BODY FLUID; Future; Expected date: 09/28/2024 - CULTURE, SYNOVIAL FLUID, AEROBIC AND ANAEROBIC; Future; Expected date: 09/28/2024 - LYME DISEASE ANTIBODY SCREEN WITH REFLEX TO CONFIRMATION; Future; Expected date: 09/28/2024 - CELL COUNT WITH DIFFERENTIAL, SYNOVIAL FLUID; Future; Expected date: 09/28/2024 Primary osteoarthritis of left knee Follow Up: Return in about 3 weeks (around 10/19/2024) for Telephone Visit. | For: Telephone Visit Impression: Left knee osteoarthritis with underlying effusion Plan: Today 's findings were discussed with the patient. They were educated regarding their diagnosis. Multiple treatment options discussed and agreed upon, including performing and aspiration today as well as offering a intra-articular corticosteroid injection. The patient has agreed an updated consent and time-out were obtained and performed today. The patient is in agreement. The synovial fluid will be sent to the lab for Gram stain culture analysis aerobic anaerobic, crystal analysis, cell count with differential and Lyme titer. Skin was cleansed with alcohol x2, chlorhexidine x2, skin was cleansed with ethyl chloride and an 18 gauge needle was utilized to aspirate 80 mL of clear straw-colored synovial fluid. The patient tolerated it very well. Hemostasis achieved bandage applied in his 6 in [place] was also applied for compression. Strict sterile technique and caution utilized today toprevent contaminant to the best of our ability. We will notify the patient of any abnormal laboratory changes. We will utilize a telephonic visit in 2 weeks to discuss the patient's results. Minimal relief and negative labs and we would discuss the opportunity for OLIVA gel injection series. The patient is aware and in agreement willing proceed accordingly. May also use topical agents, such as Voltaren gel, ice and or heat, bracing, physical therapy, behavior modification rest. The patient reportsshe will hold off on these until we speak and I will agree with that and revisit those options and o pportunities at our follow up. The patient has no other questions or concerns. Pleased with today 's care. Call sooner if needed. Patient instructed to call or return to clinic for fever or warmth and redness at injection site for potential infection. Patient also advised as to potential for steroid flare reaction including increased pain and redness at injection site which should be treated with ice and resolve within 24 hours. LG Joint Inj/Arthro: L knee on 09/28/2024 2:05 PM Indications: pain Details: 18 G needle, superolateral approach Medications: (Triamcinolone lidocaine) Aspirate: 80 mL clear and yellow; sent for lab analysis Outcome: tolerated well, no immediate complications Procedure, treatment alternatives, risks and benefits explained, specific risks discussed. Consent was given by the patient. Immediately prior to procedure a time out was called to verify the correctpatient, procedure, equipment, office support and site/side marked as required. Patient was prepped and draped in the usual sterile fashion. This chart was completed in part utilizing [employer] Speech Voice Recognition Software. Grammatical errors, random word insertions, prounoun errors, and incomplete sentences are an occasional consequence of this system due to software limitations, ambient noise, and hardware issues. Any formal questions or concerns about the content, text, or information contained within the body of this dictation should be directly addressed to the provider for clarification. Willie Coburn PA-C documented in this encounter Nursing Notes * Drea Haines CMA - 09/28/2024 1:13 PM EST New pt presents for L knee DOI: a year ago felt her knee "pop" and she turned Pt is wearing a brace on her L knee, reports it helps - Drea Harris CMA documented in this encounter Plan of Treatment Upcoming Encounters Date Type Department Care Team (Late st Contact Info) Description 10/10/2024 1:00 PM EDT Nurse Only Ancillary Department, Clarissa Rea [address] [place] [phone] Clarissa Nurse [address] [place] [address] 10/19/2024 3:30 PM EDT Telemedicine Orthopaedics [facility] [address] [place] [phone] Willie Coburn PA-C [address] [place] [phone] 11/17/2024 2:30 PM EDT Office Visit Orthopaedics Spine Surgery [facility] [address] [place] [phone] Evangelista Lujan MD [address] [place] [id number] 12/26/2024 1:40 PM EDT Office Visit [facility] [address] [facility] [place] [phone] Christi Brantley MD [address] [facility] [address] [place] [address] Pending Results Name Type Priority Associated Diagnoses Date /Time CRYSTAL ANALYSIS, BODY FLUID Lab Routine Effusion of left knee 09/28/2024 2:23 PM EST CULTURE, SYNOVIAL FLUID, AEROBIC AND ANAEROBIC Lab Routine Effusion of left knee 09/28/2024 2:23 PM EST CELL COUNT WITH DIFFERENTIAL, SYNOVIAL FLUID Lab Routine Effusion of left knee 09/28/2024 2:23 PM EST CELL COUNT, SYNOVIAL FLUID Lab Routine Effusion of left knee 09/28/2024 2:23 PM EST MANUAL DIFFERENTIAL, SYNOVIAL FLUID Lab Routine Effusion of left knee 09/28/2024 2:23 PM EST Scheduled Orders Name Type Priority Associated Diagnoses Orde r Schedule CRYSTAL ANALYSIS, BODY FLUID Lab Routine Effusion of left knee Expected: 09/28/2024, Expires: 09/28/2025 CULTURE, SYNOVIAL FLUID, AEROBIC AND ANAEROBIC Lab Routine Effusion of left knee Expected: 09/28/2024, Expires: 09/28/2025 LYME DISEASE ANTIBODY SCREEN WITH REFLEX TO CONFIRMATION Lab Routine Effusion of left knee Expected: 09/28/2024, Expires: 09/28/2025 CELL COUNT WITH DIFFERENTIAL, SYNOVIAL FLUID Lab Routine Effusion of left knee Expected: 09/28/2024, Expires: 09/28/2025 Health Maintenance Due Date Last Done Comments [...] Not on filedocumented as of this encounter Procedures Procedure Name Priority Date/Time Associated Diagnosis Comments AK ARTHROCENTESIS ASPIR&/INJ MAJOR JT/BURSA W/O US Routine 09/28/2024 2:05 PM EST Primary osteoarthritis of left knee Effusion of left knee documented in this encounter Results * AK ARTHROCENTESIS ASPIR&/INJ MAJOR JT/BURSA W/O US (09/28/2024 2:05 PM EST) Narrative Willie Coburn PA-C - 09/28/2024 2:05 PM EST Willie Coburn PA-C 09/28/2024 2:07 PM LG Joint Inj/Arthro: L knee on 09/28/2024 2:05 PM Indications: pain Details: 18 G needle, superolateral approach Medications: (Triamcinolone lidocaine) Aspirate: 80 mL clear and yellow; sent for lab analysis Outcome: tolerated well, no immediate complications Procedure, treatment alternatives, risks and benefits explained, specific risks discussed. Consent was given by the patient. Immediately prior to procedure a time out was called to verify the correct patient, procedure, equipment, office support and site/side marked as required. Patient was prepped and draped in the usual sterile fashion. Willie Coburn PA-C PROCDOC FORM Final R esult documented in this encounter Visit Diagnoses Diagnosis Effusion of left knee- Primary Effusion of lower leg joint Primary osteoarthritis of left knee Primary localized osteoarthrosis, lower leg documented in this encounter Administered Medications Inactive Administered Medications - up to 3 most recent administrations Medication Order MAR Action Action Date Dose Rate Site lidocaine 1% 1 mL - triamcinolone acetonide 40 mg/mL 1 mL inj 2 mL 2 mL, Injection, ONCE, On Hans[place] 09/28/24 at 1445, For 1 dose, Lidocaine 1% 1mL Triamcinolone Acetonide 40 mg/mL 1 mL (Final concentration = 20 mg/mL) REFRIGERATE and SHAKE WELLIndications:Primary osteoarthritis of left knee,Effusion of left knee Given 09/28/2024 2:35 PM EST 2 mL Knee Left documented in this encounter Care Teams Buffing Wheel Presser Relationship Specialty Start Date End Date Christi Brantley MD [address] [place] [phone] PCP - General Family Medicine 09/25/24 documented as of this encounter
--- OUTSIDE RECORDS SUMMARY | 2024-11-01 10:45 | External Medical Summary | Summary of Care ---
Author Name Unknown Organization [facility] Address [address] [place] [address] Phone [phone] Care Team Providers Care Director Software Quality Assurance Name Role Phone Christi Brantley MD Primary Care Provid er Reason for Referral * Evaluate & Treat - Unlimited Visits (Within 10 days (routine)) - Pending Review Specialty Diagnoses / Procedures Referred By Contac t Referred To Contact Pharmacist / Pharmacy Diagnoses Severe scoliosis SOURAV (acute kidney injury) (HCC) Methadone dependence (HCC) H/O spinal fusion Christi Brantley MD [address] [place] [id number] Phone: tel: fax: Referral ID Status Reason Start Date Expiration Date Visits Requested Visits Authorized [id number] Pending Review Specialty Services Required 10/02/2024 03/31/2025 99 [phone] Question Answer Referral Priority Within 10 days (routine) Where should this appointment be scheduled? [facility] Referring Provider Role: Primary Care Reason for Referral: Pain Pain Diagnosis: Back pain Pain Treatment Options: Non-opioids only Pain Treatment Goal: Med Optimization Comments Pharmacist Medication Therapy Management: Minimum frequency patient should be seen in person for medication management: as appropriate per clinical condition and patient status By my signature, I understand that my patient Ericka Proctor will have her medication therapy managed by the [facility] Medication Therapy [facility] ([facility]) per established policies, procedures, and protocols. I also certify that this referral may serve as an initiation of service for the management of drug therapy in the above noted patient. [facility] providers will be responsible for scheduling patient visits, obtaining appropriate laboratory studies, and adjusting medication management therapy per patient's need, in addition to those roles spelled out in the clinic policy, procedures, and drug management protocols. I understand that the service provided by the [facility] is voluntary and have informed patient that they can refuse the service at their discretion. I am aware that the [facility] Clinic will provide me with a copy of the patient encounter via my [facility]. I authorize the [facility] to carry out these activities on my behalf. I consider this program to be a necessary part of the patient's medical care. Christi Brantley MD Encounter Details Date Type Department Care Team (Late st Contact Info) Description 10/02/[address] [facility] [address] [phone] Christi Brantley MD [address] [address] Allergies No known active allergiesdocumented as of [...] 2.1 mL by mouth in the morning. [facility]. Active amLODIPine Besylate 5 MG Oral Tablet [...] 5 5 Active Vitamin D3 1.25 MG (46289 UT) Oral CapsuleIndicati ons:Hypovitamin osis D Take [...] encounter Miscellaneous Notes * Telephone Encounter - Christi Brantley MD - 10/02/2024 7:40 PM EST Spoke w patient on phone. She will keep f/u with ortho and spine ortho. She will reduce naproxen usage. Agreeable to repeat labs I n 3 mo. Agreeable to MTM referral. documented in this encounter Plan of Treatment Upcoming Encounters Date Type Department Care Team (Late st Contact Info) Description 10/10/2024 1:00 PM EDT Nurse Only Ancillary Department, Clarissa Rea [address] [phone] Clarissa Nurse [address] [address] [address] 10/19/2024 3:30 PM EDT Telemedicine Orthopaedics [facility] [address] [place] [phone] Willie Coburn PA-C [address] [place] [phone] 11/17/2024 2:30 PM EDT Office Visit Orthopaedics Spine Surgery [facility] [address] [place] [phone] Evangelista Lujan MD [address] [place] [address] 12/26/2024 1:40 PM EDT Office Visit [facility] Clarissa [place] [address] [phone] Christi Brantley MD [address] [place] [address] Scheduled Referrals Name Type Priority Associated Diagnoses Orde r Schedule PHARMACIST MEDS THERAPY MGMT REFERRAL OP Referral Within 10 days (routine) Severe scoliosis SOURAV (acute kidney injury) (HCC) Methadone dependence (HCC) H/O spinal fusion Ordered: 10/02/2024 Health Maintenance Due Date Last Done Comments [...] as of this encounter Visit Diagnoses Diagnosis Severe scoliosis- Primary Scoliosis (and kyphoscoliosis), idiopathic SOURAV (acute kidney injury) (HCC) Acute kidney failure, unspecified Methadone dependence (HCC) Opioid type dependence, unspecified H/O spinal fusion Arthrodesis status documented in this encounter Care Teams Director Software Quality Assurance Relationship Specialty Start Date End Date Christi Brantley MD [address] [address] PCP - General Family Medicine 09/25/24 documented as of this encounter
--- OUTSIDE RECORDS SUMMARY | 2024-11-01 10:45 | External Medical Summary ---
Author Name Unknown Address Unknown Organization K01:[facility] - [address] [place] [address] Laboratory Report Ordering Provider Test Date Status MELBA CORNELL 09/25/2024 12:57:12 Final Deficient: <20 ng/mL
Ins ufficient: 20-29 ng/mL
Recommended/Optimum:30-50 ng/mL

Vitamin D intoxication is rare. If suspicious of Vitamin D toxicity, evaluation of serum Calcium and PTH is recommended. Observation Date Value Abnormality Reference (Units ) Status 25-OH Vitamin D total 09/25/2024 12:57:12 13 Below low normal >19 (ng/mL) Final Performing Location [facility] - [address] [place] [address]
--- OUTSIDE RECORDS SUMMARY | 2024-11-01 10:45 | External Medical Summary | Summary of Care ---
Author Name Unknown Organization [facility] Address [address] [place] [address] Phone [phone] Care Team Providers Care Engineering Group Leader Name Role Phone Christi Brantley MD Primary Care Provid er Encounter Details Date Type Department Care Team (Late st Contact Info) Description [facility] [place] [phone] Christi Brantley MD [address] [place] [address] Allergies No known active allergiesdocumented as [...] 2.1 mL by mouth in the morning. [facility]. Active amLODIPine Besylate 5 MG Oral [...] 5 5 Active Vitamin D3 1.25 MG (10127 UT) Oral CapsuleIndicati ons:Hypovitamin osis D Take [...] on file documented as of this encounter Plan of Treatment Upcoming Encounters Date Type Department Care Team (Late st Contact Info) Description 10/10/2024 1:00 PM EDT Nurse Only Ancillary Department, Clarissa Rea [address] [phone] Clarissa, Nurse [address] [address] 10/19/2024 3:30 PM EDT Telemedicine Orthopaedics [facility] [address] [place] [phone] Willie Coburn PA-C [address] [place] [phone] 11/17/2024 2:30 PM EDT Office Visit Orthopaedics Spine Surgery [facility] [address] [place] [phone] Evangelista Lujan MD [address] [place] [address] 12/26/2024 1:40 PM EDT Office Visit [facility] [place] Xavierrick Vanegas [address] [phone] Christi Brantley MD [address] [facility] [place] [address] Scheduled Orders Name Type Priority Associated Diagnoses Orde r Schedule 25-HYDROXY VITAMIN D Lab Routine Hypovitaminosis D Expected: 01/02/2025 (Approximate), Expires: 11/02/2025 BASIC METABOLIC PANEL Lab Routine SOURAV (acute kidney injury) (HCC) Expected: 01/02/2025 (Approximate), Expires: 11/02/2025 LIPID PANEL WITH DIRECT LDL IF TG IS HIGH Lab Routine Dyslipidemia, goal LDL below 130 Expected: 01/02/2025 (Approximate), Expires: 10/02/2025 Health Maintenance Due Date Last Done Comments [...] as of this encounter Visit Diagnoses Diagnosis Hypovitaminosis D- Primary Unspecified vitamin D deficiency SOURAV (acute kidney injury) (HCC) Acute kidney failure, unspecified Dyslipidemia, goal LDL below 130 Other and unspecified hyperlipidemia documented in this encounter Care Teams Engineering Group Leader Relationship Specialty Start Date End Date Christi Brantley MD [address] [address] [address] PCP - General Family Medicine 09/25/24 documented as of this encounter
--- OUTSIDE RECORDS SUMMARY | 2024-11-01 10:45 | External Medical Summary | Summary of Care ---
Author Name Unknown Organization [facility] Address [address] [place] [address] Phone [phone] Care Team Providers Care Service Counselor Name Role Phone Christi Brantley MD Primary Care Provid er Reason for Visit * Reason Comments Outpatient Testing Encounter Details Date Type Department Care Team (Late st Contact Info) Description 09/25/2024 12:50 PM EST Laboratory Laboratory, [place] [facility] [address] [phone] [place] [address] [place] [address] Psoriasis; Polyarthritis; HTN, goal below 140/90; Class 2 severe obesity with serious comorbidity and body mass index (BMI) of 35.0 to 35.9 in adult, unspecified obesity type (HCC); Screening for diabetes mellitus; Screening for lipid disorders; Screening for HIV without presence of risk factors; Encounter for hepatitis C screening test for low risk patient Allergies No known active allergiesdocumented as of this encounter (statuses as of 09/25/2024) Medications Amphetamine-Dex troamphetamine 20 MG Oral Tablet (Adderall) Take 1 Tablet by mouth in the morning. Active Ketoconazole 2 % External Shampoo (Nizoral) Apply topically to affected area every 3 days. Shampoo twice a week 600 mL 3 Active Mometasone Furoate 0.1 % External Ointment Apply 1 g topically to affected area in the morning. 45 g 3 Active clonazePAM 1 MG Oral Tablet (KlonoPIN) [...] 2.1 mL by mouth in the morning. [facility]. Active amLODIPine Besylate 5 MG Oral Tablet (Norvasc)Indica tions:HTN, goal below 140/90 Take 1 Tablet by mouth in the morning. 30 Tablet 11 Active Meloxicam 15 MG Oral Tablet (Mobic)Indicati ons:Polyarthrit is,Chronic midline low back pain without sciatica,Knee effusion, left,H/O spinal fusion,Methadon e dependence (HCC) Take 1 Tablet by mouth in the morning. for pain.. 30 Tablet 5 Active documented as of this encounter (statuses as of 09/25/2024) Active Problems Problem Noted Date Diagnosed Date [...] as of this encounter (statuses as of 09/25/2024) Social History Tobacco Use Types Packs/Day Years [...] Care Team (Late st Contact Info) Description 09/28/2024 1:00 PM EST Office Visit Orthopaedics [facility] [address] [phone] Willie Coburn PA-C [address] [phone] 10/10/2024 1:00 PM EDT Nurse Only Ancillary Department, Clarissa Rea [address] [phone] Clarissa Nurse [address] [address] 11/17/2024 2:30 PM EDT Office Visit Orthopaedics Spine Surgery [facility] [address] [phone] Evangelista Lujan MD [address] [id number] 12/26/2024 1:40 PM EDT Office Visit Family Practice, Clarissa Vanegas [address] [phone] Christi Brantley MD [address] [address] Pending Results Name Type Priority Associated Diagnoses Date /Time CBC WITH WBC DIFFERENTIAL Lab Routine Psoriasis Polyarthritis 09/25/2024 12:57 PM EST COMPREHENSIVE METABOLIC PANEL Lab Routine HTN, goal below 140/90 Psoriasis Polyarthritis 09/25/2024 12:57 PM EST CRP (INFLAMMATORY MARKER) Lab Routine Psoriasis Polyarthritis 09/25/2024 12:57 PM EST ERYTHROCYTE SEDIMENTATION RATE (ESR) Lab Routine Psoriasis Polyarthritis 09/25/2024 12:57 PM EST RHEUMATOID FACTOR Lab Routine Psoriasis Polyarthritis 09/25/2024 12:57 PM EST CYCLIC CITRULLINATED PEPTIDE IGG ANTIBODY Lab Routine Psoriasis Polyarthritis 09/25/2024 12:57 PM EST TSH WITH FREE T4 IF INDICATED Lab Routine Class 2 severe obesity with serious comorbidity and body mass index (BMI) of 35.0 to 35.9 in adult, unspecified obesity type (HCC) 09/25/2024 12:57 PM EST HEMOGLOBIN A1C Lab Routine Class 2 severe obesity with serious comorbidity and body mass index (BMI) of 35.0 to 35.9 in adult, unspecified obesity type (HCC) Screening for diabetes mellitus 09/25/2024 12:57 PM EST LIPID PANEL WITH DIRECT LDL IF TG IS HIGH Lab Routine Screening for lipid disorders 09/25/2024 12:57 PM EST 25-HYDROXY VITAMIN D Lab Routine Psoriasis Polyarthritis Class 2 severe obesity with serious comorbidity and body mass index (BMI) of 35.0 to 35.9 in adult, unspecified obesity type (HCC) Screening for diabetes mellitus Screening for lipid disorders 09/25/2024 12:57 PM EST HIV ANTIGEN & ANTIBODY SCREEN W/ CONFIRMATION Lab Routine Screening for HIV without presence of risk factors 09/25/2024 12:57 PM EST HEPATITIS C ANTIBODY SCREEN WITH PROGRESSION TO HEPATITIS C RNA QUANTITATIVE Lab Routine Encounter for hepatitis C screening test for low risk patient 09/25/2024 12:57 PM EST CBC Lab Routine Psoriasis Polyarthritis 09/25/2024 12:57 PM EST DIFFERENTIAL, AUTOMATED Lab Routine Psoriasis Polyarthritis 09/25/2024 12:57 PM EST HEPATITIS C ANTIBODY Lab Routine Encounter for hepatitis C screening test for low risk patient 09/25/2024 12:57 PM EST HEPATITIS C RNA QUANTITATION REFLEX COLLECTION Lab Routine Encounter for hepatitis C screening test for low risk patient 09/25/2024 12:57 PM EST Health Maintenance Due Date Last Done Comments Diabetes Screening 1968 GFR 1968 Lipid Panel 1968 HIV Screening 1983 Albumin/Creatinine Ratio 1986 Hepatitis C Screening 1986 DTap/Tdap Vaccines (1 - Tdap) 1987 Hepatitis B Vaccine (1 of 3 - 19+ 3-dose series) 1987 Pap Smear 1989 Cervical Cancer Screening 1998 HPV/Co-Test 1998 Mammogram 2008 Cologuard 2013 Colonoscopy 2013 Colorectal Cancer Screening 2013 Fecal Occult Blood Test 2013 Sigmoidoscopy 2013 Pneumococcal Vaccine: 50+ Ye ars (1 of 1 - PCV) 2018 Zoster Vaccines (1 of 2) 2018 COVID-19 Vaccine (1 - 2023-2 5 season) 2024 Influenza Vaccine (FLU shot) (#1) 2024 Depression Monitoring 09/25/2025 09/25/2024 HPV (Gardasil) Vaccine Aged Out No lo nger eligible based on patient's age to complete this topic MENINGOCOCCAL (MENACTRA/MENVEO) Aged Out No longer eligible based on patient's age to complete this topic Meningitis B Vaccine (Bexsero/Trumemba) Aged Out No longer eligible b ased on patient's age to complete this topic documented as of this encounter Medical Devices Not on filedocumented as of this encounter Visit Diagnoses Diagnosis Psoriasis Other psoriasis Polyarthritis Unspecified polyarthropathy or polyarthritis, site unspecified HTN, goal below 140/90 Unspecified essential hypertension Class 2 severe obesity with serious comorbidity and body mass index (BMI) of 35.0 to 35.9 in adult, unspecified obesity type (HCC) Screening for diabetes mellitus Screening for lipid disorders Screening for HIV without presence of risk factors Special screening examination for other specified viral diseases Encounter for hepatitis C screening test for low risk patient documented in this encounter Care Teams Service Counselor Relationship Specialty Start Date End Date Christi Brantley MD [address] [id number] PCP - General Family Medicine 09/25/24 documented as of this encounter
--- OUTSIDE RECORDS SUMMARY | 2024-11-01 10:45 | External Medical Summary ---
Author Name Unknown Address Unknown Organization [id number]:LABORATORY [facility] - [address] [facility] [address] Laboratory Report Ordering Provider Test Date Status MELBA CORNELL 09/25/2024 12:57:12 Final Observation Date Value Abnormality Reference (Units ) Status TSH 09/25/2024 12:57:12 3.99 0.27-4.20 (uIU/mL) Final Performing Location [facility] [address] [facility] [address]
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
--- OUTSIDE RECORDS SUMMARY | 2024-11-01 10:45 | External Medical Summary ---
Author Name Unknown Address Unknown Organization K01:LAB[facility]ATORY [facility] - [address] [facility] [address] Laboratory Report Ordering Provider Test Date Status HONORIO GIBBS 09/28/2024 14:23:00 Final Reference ranges are for guillermina nts without prior surgery. Some reference ranges and other method performance specifications have not been established for this fluid. The test results must be integrated into the clinical context for interpretation. Observation Date Value Abnormality Reference (Units ) Status SYNC TOTAL NUCLEATED CELLS, SYNOVIAL 09/28/2024 14:23:00 134 (cells/uL) Final Segmented neutrophils/100 leukocytes in Synovial fluid 09/28/2024 14:23:00 13 0-25 (%) Final Lymphocytes/100 leukocytes in Synovial fluid 09/28/2024 14:23:00 8 0-78 (%) Final Monocytes/100 leukocytes in Synovial fluid 09/28/2024 14:23:00 78 Above high normal 0-71 (%) Final Synovial lining cells/100 cells in Synovial fluid 09/28/2024 14:23:00 1 (%) Final SEGMENTED NEUTROPHILS (1000/UG) IN SYNOVIAL FLUID ABS 09/28/2024 14:23:00 17.42 (cells/uL) Final LYMPHOCYTES (1000/UG) IN SYNOVIAL FLUID ABS 09/28/2024 14:23:00 10.72 (cells/uL) Final MONOCYTES(1000/UG) IN SYNOVIAL FLUID ABS 09/28/2024 14:23:00 104.52 (cells/uL) Final LINING CELLS IN SYNOVIAL ABS 09/28/2024 14:23:00 1.34 (cells/uL) Final Performing Location [facility] [address] [facility] [address]
--- OUTSIDE RECORDS SUMMARY | 2024-11-01 10:45 | External Medical Summary | Summary of Care ---
Author Name Unknown Organization [facility] Address [address] [place] [address] Phone [phone] Care Team Providers Care Radiology Equipment Servicer Name Role Phone Christi Brantley MD Primary [...] Methadone dependence (HCC) Christi Brantley MD [address] [place] [address] Phone: tel: fax: Referral ID Status Reason Start Date Expiration Date Visits Requested Visits Authorized [id number] Pending Review Specialty Services Required 09/25/[phone] Encounter Details Date Type Department Care Team (Latest Contact Info) Description 09/28/2024 1:00 PM EST Office Visit Orthopaedics [facility] [address] [place] [phone] Willie Coburn PA-C [address] [place] [phone] Effusion of left knee*; Primary osteoarthritis of [...] 2.1 mL by mouth in the morning. [facility]. Active amLODIPine Besylate 5 MG [...] left knee; Primary osteoarthritis of left knee Jroge Proctor is a 54 year old female. Chief Complaint Patient presents with • NEW PATIENT New pt presents for L knee HPI: New patient referred regarding left knee pain and swelling. Reports about a year ago experiencing a pop in the left knee. She has a brace that she obtained [id number]. She has not had any formal treatments [...] idiopathic scoliosis, lumbar region • Methadone dependence ([facility]) • Class 2 severe obesity with serious comorbidity and body mass index (BMI) of 35.0 to 35.9 in adult ([facility]) • Polyarthritis Current Outpatient Medications Medication Sig [...] 2.1 mL by mouth in the morning. [facility]. • amLODIPine Besylate 5 MG Oral Tablet (Norvasc) Take 1 Tablet by mouth in the morning. 30 [id number] • Meloxicam 15 MG Oral Tablet (Mobic) [...] impressive along medial joint line that has [id number]. Osteophytosis that has advanced lateral joint line [...] called to verify the correctpatient, procedure, equipment, behaviour support teacher and site/side marked as required. Patient was prepped and draped in the usual sterile fashion. This chart was completed in part utilizing [employer] Speech Voice Recognition Software. Grammatical errors, random [...] Ancillary Department, Clarissa Rea [address] [phone] Clarissa Nurse [address] [address] 10/19/2024 3:30 PM EDT Telemedicine Orthopaedics [facility] [address] [place] [phone] Willie Coburn PA-C [address] [place] [phone] 11/17/2024 2:30 PM EDT Office Visit Orthopaedics Spine Surgery [facility] [address] [place] [phone] Evangelista Lujan MD [address] [place] [address] 12/26/2024 1:40 PM EDT Office Visit [facility] [address] [facility] [place] [address] Christi Brantley MD [address] [facility] [address] [place] [address] Pending Results Name Type Priority Associated Diagnoses [...] Procedure Name Priority Date/Time Associated Diagnosis Comments UT ARTHROCENTESIS ASPIR&/INJ MAJOR JT/BURSA W/O US Routine 09/28/2024 2:05 PM EST Primary osteoarthritis of left knee Effusion of left knee documented in this encounter Results * UT ARTHROCENTESIS ASPIR&/INJ MAJOR JT/BURSA W/O US (09/28/2024 [...] to verify the correct patient, procedure, equipment, behaviour support teacher and site/side marked as required. Patient was [...] Left documented in this encounter Care Teams Radiology Equipment Servicer Relationship Specialty Start Date End Date Christi Brantley MD [address] [address] PCP - General Family Medicine 09/25/24 documented as of this encounter
--- OUTSIDE RECORDS SUMMARY | 2024-11-01 10:45 | External Medical Summary ---
Author Name Unknown Address Unknown Organization K01:LABORATORY [facility] [place] - [address] [place] [address] Laboratory Report Ordering Provider Test Date Status HONORIO GIBBS 09/28/2024 14:23:00 Final Observation Date Value Abnormality Reference (Units ) Status Color of Body fluid 09/28/2024 14:23:00 Yellow Straw, Yellow, Colorless Final Clarity of Body fluid 09/28/2024 14:23:00 Cloudy Abnormal Clear Final Crystals, Synovial Fluid 09/28/2024 14:23:00 No Crystals Present No Crystals Present Final Crystals, Synovial Fluid 09/28/2024 14:23:00 No Crystals Present No Crystals Present Final Performing Location [facility] - [address] [place] [address]
--- OUTSIDE RECORDS SUMMARY | 2024-11-01 10:45 | External Medical Summary ---
Author Name Unknown Address Unknown Organization K01:LABORATORY [facility] [place] - [address] [place] [address] Laboratory Report Ordering Provider Test Date Status HONORIO GIBBS 09/28/2024 14:22:00 Final Observation Date Value Abnormality Reference (Units) Status Bacteria identified in Specimen by Culture 09/28/2024 14:22:00 No growth Final Gram Stain 09/28/2024 14:22:00 No polymorphonuclear leukocytes seen Final Gram Stain 09/28/2024 14:22:00 No organisms seen Final Test: Culture, Synovial Flu id, Aerobic and Anaerobic
Specimen Source: Knee, Left
Specimen Type: Synovial Fluid
Specimen Date: 09/28/20241421
Result Date: 10/13/20242024
Result Status: Final result
Resulting Lab: LABORATORY [facility] [place]
[address]
[place] [address]

CULTURE

No growth

STAIN

No polymorphonuclear leukocytes seen

No organisms seen

null Performing Location LABORATORY [facility] [place] - [address] [place] [address]
--- OUTSIDE RECORDS SUMMARY | 2024-11-01 10:45 | External Medical Summary | Summary of Care ---
Author Name Unknown Organization [facility] Address [address] [place] [address] Phone [phone] Care Team Providers Care Agricultural And Forestry Supervisor Name Role Phone Christi Brantley MD Primary [...] Methadone dependence (HCC) Christi Brantley MD [address] [place] [address] Phone: tel: fax: Referral ID Status Reason Start Date Expiration Date Visits Requested Visits Authorized [id number] Pending Review Specialty Services Required 09/25/[phone] Encounter Details Date Type Department Care Team (Latest Contact Info) Description 09/28/2024 1:00 PM EST Office Visit Orthopaedics [facility] [address] [place] [phone] Willie Coburn PA-C [address] [place] [phone] Effusion of left knee*; Primary osteoarthritis of [...] 2.1 mL by mouth in the morning. [facility]. Active amLODIPine Besylate 5 MG Oral [...] She has a brace that she obtained [id number]. She has not had any formal treatments [...] lumbar region • Methadone dependence ([facility]) • Class 2 severe obesity with serious comorbidity and body mass index (BMI) of 35.0 to 35.9 in adult ([facility]) • Polyarthritis Current Outpatient Medications Medication Sig [...] 2.1 mL by mouth in the morning. [facility]. • amLODIPine Besylate 5 MG Oral Tablet (Norvasc) Take 1 Tablet by mouth in the morning. 30 [id number] • Meloxicam 15 MG Oral Tablet (Mobic) [...] impressive along medial joint line that has [id number]. Osteophytosis that has advanced lateral joint line [...] called to verify the correctpatient, procedure, equipment, supportability engineer and site/side marked as required. Patient was prepped and draped in the usual sterile fashion. This chart was completed in part utilizing [employer] Speech Voice Recognition Software. Grammatical errors, random [...] Ancillary Department, Clarissa Rea [address] [place] [phone] Clarissa Nurse [address] [place] [address] 10/19/2024 3:30 PM EDT Telemedicine Orthopaedics [facility] [address] [place] [phone] Willie Coburn PA-C [address] [place] [phone] 11/17/2024 2:30 PM EDT Office Visit Orthopaedics Spine [facility] [address] [place] [phone] Evangelista Lujan MD [address] [place] [address] 12/26/2024 1:40 PM EDT Office Visit [facility] [address] [facility] [place] [address] Christi Brantley MD [address] [facility] [address] [place] [address] Pending Results Name Type Priority Associated Diagnoses [...] Procedure Name Priority Date/Time Associated Diagnosis Comments MS ARTHROCENTESIS ASPIR&/INJ MAJOR JT/BURSA W/O US Routine 09/28/2024 2:05 PM EST Primary osteoarthritis of left knee Effusion of left knee documented in this encounter Results * MS ARTHROCENTESIS ASPIR&/INJ MAJOR JT/BURSA W/O US (09/28/2024 [...] to verify the correct patient, procedure, equipment, supportability engineer and site/side marked as required. Patient was [...] Left documented in this encounter Care Teams Agricultural And Forestry Supervisor Relationship Specialty Start Date End Date Christi Brantley MD [address] [place] [address] PCP - General Family Medicine 09/25/24 documented as of this encounter
--- OUTSIDE RECORDS SUMMARY | 2024-11-01 10:45 | External Medical Summary | Summary of Care ---
Author Name Unknown Organization [facility] Address [address] [place] [address] Phone [phone] Care Team Providers Care Locomotive Engineer Diesel Name Role Phone Christi Brantley MD Primary [...] Methadone dependence (HCC) Christi Brantley MD [address] [place] [address] Phone: tel: fax: Referral ID Status Reason Start Date Expiration Date Visits Requested Visits Authorized [id number] Pending Review Specialty Services Required 09/25/[phone] Encounter Details Date Type Department Care Team (Latest Contact Info) Description 09/28/2024 1:00 PM EST Office Visit Orthopaedics [facility] [address] [place] [phone] Willie Coburn PA-C [address] [place] [phone] Effusion of left knee*; Primary osteoarthritis of [...] 2.1 mL by mouth in the morning. [facility]. Active amLODIPine Besylate 5 MG [...] She has a brace that she obtained [id number]. She has not had any formal treatments [...] idiopathic scoliosis, lumbar region • Methadone dependence ([facility]) • Class 2 severe obesity with serious comorbidity and body mass index (BMI) of 35.0 to 35.9 in adult ([facility]) • Polyarthritis Current Outpatient Medications [...] 2.1 mL by mouth in the morning. [facility]. • amLODIPine Besylate 5 MG Oral Tablet (Norvasc) Take 1 Tablet by mouth in the morning. 30 [id number] • Meloxicam 15 MG Oral Tablet (Mobic) [...] impressive along medial joint line that has [id number]. Osteophytosis that has advanced lateral joint line [...] called to verify the correctpatient, procedure, equipment, sales support engineer and site/side marked as required. Patient was prepped and draped in the usual sterile fashion. This chart was completed in part utilizing [employer] Speech Voice Recognition Software. Grammatical errors, random [...] Ancillary Department, Clarissa Rea [address] [phone] Clarissa Nurse [address] [address] 10/19/2024 3:30 PM EDT Telemedicine Orthopaedics [facility] [address] [place] [phone] Willie Coburn PA-C [address] [place] [phone] 11/17/2024 2:30 PM EDT Office Visit Orthopaedics Spine Surgery [facility] [address] [place] [phone] Evangelista Lujan MD [address] [place] [address] 12/26/2024 1:40 PM EDT Office Visit [facility] [address] [facility] [place] [address] Christi Brantley MD [address] [facility] [address] [place] [address] Pending Results Name Type Priority Associated Diagnoses [...] Procedure Name Priority Date/Time Associated Diagnosis Comments DE ARTHROCENTESIS ASPIR&/INJ MAJOR JT/BURSA W/O US Routine 09/28/2024 2:05 PM EST Primary osteoarthritis of left knee Effusion of left knee documented in this encounter Results * DE ARTHROCENTESIS ASPIR&/INJ MAJOR JT/BURSA W/O US (09/28/2024 [...] to verify the correct patient, procedure, equipment, sales support engineer and site/side marked as required. Patient [...] Left documented in this encounter Care Teams Locomotive Engineer Diesel Relationship Specialty Start Date End Date Christi Brantley MD [address] [address] PCP - General Family Medicine 09/25/24 documented as of this encounter
--- OUTSIDE RECORDS SUMMARY | 2024-11-01 10:45 | External Medical Summary | Summary of Care ---
Author Name Unknown Organization [facility] Address [address] [place] [address] Phone [phone] Care Team Providers Care Semiconductor Wafers Tester Name Role Phone Christi Brantley MD Primary [...] scoliosis, lumbar region Christi Brantley MD [address] [place] [address] Phone: tel: fax: Referral ID Status Reason Start Date Expiration Date Visits Requested Visits Authorized [id number] Pending Review Specialty Services Required 09/25/2024 999 [...] Methadone dependence (HCC) Christi Brantley MD [address] [place] [address] Phone: tel: fax: Referral ID Status Reason Start Date Expiration Date Visits Requested Visits Authorized [id number] Pending Review Specialty Services Required 09/25/2024 999 [...] Description 09/25/2024 11:40 AM EST Office Visit [facility] Abhi Vanegas [address] [phone] Christi Brantley MD [address] [address] HTN, goal below 140/90*; Psoriasis; Polyarthritis; Class [...] 2.1 mL by mouth in the morning. [facility]. Active amLODIPine Besylate 5 MG Oral [...] currently Moved about 1 year ago from [place]. [place] [facility] [place], uses [facility]. The patient also reports [...] hair loss. Has not been seenby a control system manager yet. The patient also reports a swollen [...] Dr. Bond in pain medicine and the [facility] pharmacist for further management. -Continue gabapentin. Psoriasis [...] in this note was generated using an [employer] documentation service. I discussed the use of [...] 09/28/2024 1:00 PM EST Office Visit Orthopaedics [facility] [address] [place] [phone] Willie Coburn PA-C [address] [place] [phone] 10/10/2024 1:00 PM EDT Nurse Only Ancillary Department, Clarissa Rea [address] [place] [address] Clarissa, Nurse [address] [place] [phone] 11/17/2024 2:30 PM EDT Office Visit Orthopaedics [facility]ine [facility] [address] [place] [phone] Evangelista Lujan MD [address] [place] [address] 12/26/2024 1:40 PM EDT Office Visit Family Practice, Clarissa Vanegas [address] [place] [phone] Christi Brantley MD [address] [place] [address] Pending Results Name Type Priority Associated Diagnoses [...] region documented in this encounter Care Teams Semiconductor Wafers Tester Relationship Specialty Start Date End Date Christi Brantley MD [address] [place] [address] PCP - General Family Medicine 09/25/24 documented as of this encounter
--- OUTSIDE RECORDS SUMMARY | 2024-11-01 10:45 | External Medical Summary ---
Author Name Unknown Address Unknown Organization K01:[place] [facility] [place] [address] [place] [address] Laboratory Report Ordering Provider Test Date Status HONORIO GIBBS 09/28/2024 14:23:00 Final Reference ranges are for guillermina nts without prior surgery. Some reference ranges and other method performance specifications have not been established for this fluid. The test results must be integrated into the clinical context for interpretation.
null Observation Date Value Abnormality Reference (Units ) Status Color of Body fluid 09/28/2024 14:23:00 Yellow Straw, Yellow, Colorless Final Clarity of Body fluid 09/28/2024 14:23:00 Cloudy Abnormal Clear Final Leukocytes [#/volume] in Synovial fluid 09/28/2024 14:23:00 134 0-180 (cells/uL) Final Erythrocytes [#/volume] in Synovial fluid 09/28/2024 14:23:00 250 <2000 (cells/uL) Final Performing Location [place] [facility] [place] [address] [place] [address]
--- OUTSIDE RECORDS SUMMARY | 2024-11-01 10:45 | External Medical Summary ---
Author Name Unknown Address Unknown Organization K01:LABORATORY [facility] - [address] [facility] [place] [address] Laboratory Report Ordering Provider Test Date Status KRAIGMELBA 09/25/2024 12:57:12 Final Observation Date Value Abnormality Reference (Units ) Status SYNC LEUKOCYTES IN BLOOD BY AUTOMATED COUNT 09/25/2024 12:57:12 7.71 4.00-10.80 (K/uL) Final Segs 09/25/2024 12:57:12 60.0 40.0-75.0 (%) Final Lymphs % 09/25/2024 12:57:12 30.6 18.0-42.0 (%) Final Monos 09/25/2024 12:57:12 6.7 1.0-11.0 (%) Final Eosinophils 09/25/2024 12:57:12 1.9 0.0-6.0 (%) Final Basos 09/25/2024 12:57:12 0.5 0.0-2.0 (%) Final Immature Granulocyte, Percent 09/25/2024 12:57:12 0.3 0.0-2.0 (%) Final Absolute Segs 09/25/2024 12:57:12 4.62 1.80-7.70 (K/uL) Final Lymphs, absolute 09/25/2024 12:57:12 2.36 1.00-4.80 (K/ul) Final Monos, Abs 09/25/2024 12:57:12 0.52 0.00-1.10 (K/uL) Final Eos, Abs 09/25/2024 12:57:12 0.15 0.00-0.70 (K/uL) Final Basos, Abs 09/25/2024 12:57:12 0.04 0.00-0.20 (K/uL) Final Immature Granulocytes, Number 09/25/2024 12:57:12 0.02 0.00-0.20 (K/uL) Final Performing Location LAB[facility]ATORY [facility] - [address] [facility] [address]
--- OUTSIDE RECORDS SUMMARY | 2024-11-01 10:45 | External Medical Summary | Summary of Care ---
Author Name Unknown Organization [facility] Address [address] [facility] [place] [address] Phone [phone] Care Team Providers Care Card Maker Name Role Phone Christi Brantley MD Primary Care Provid er Encounter Details Date Type Department Care Team (Late st Contact Info) Description 10/02/2024 Orders Only PATIENT PORTAL DO NOT DELETE THIS DEPT USED BY [place] [id number] Allergies No known active allergiesdocumented as of this encounter (statuses as of 10/02/2024) Medications Amphetamine-Dex troamphetamine 20 MG Oral Tablet [...] mL by mouth in the morning. [facility]. Active amLODIPine Besylate 5 MG Oral Tablet (Norvasc)Indica tions:HTN, goal below 140/90 Take 1 Tablet by mouth in the morning. 30 Tablet 11 Active Meloxicam 15 MG Oral Tablet (Mobic)Indicati ons:Polyarthrit is,Chronic midline low back pain without sciatica,Knee effusion, left,H/O spinal fusion,Methadon e dependence (HCC) Take 1 Tablet by mouth in the morning. for pain.. 30 Tablet 5 5 Active documented as of this encounter (statuses as of 10/02/2024) Active Problems Problem Noted Date Diagnosed Date [...] as of this encounter (statuses as of 10/02/2024) Social History Tobacco Use Types Packs/Day Years [...] PM EDT Nurse Only Ancillary Department, Clarissa [address] [phone] Nurse Clarissa [address] [facility] [place] [address] 10/19/2024 3:30 PM EDT Telemedicine Orthopaedics [facility] [address] [place] [phone] Willie Coburn PA-C [address] [place] [phone] 11/17/2024 2:30 PM EDT Office Visit Orthopaedics Spine [facility] [address] [place] [phone] Evangelista Lujan MD [address] [place] [address] 12/26/2024 1:40 PM EDT Office [facility] [address] [facility] [place] [phone] Christi Brantley MD [address] [facility] [place] [phone] Health Maintenance Due Date Last Done Comments [...] Vaccines (1 of 2) 2018 COVID-19 Vaccine ( - 2023-2 5 season) 2024 Influenza Vaccine [...] filedocumented as of this encounter Care Teams Card Maker Relationship Specialty Start Date End Date Christi Brantley MD [address] [place] [address] PCP - General Family Medicine 09/25/24 documented as of this encounter
--- OUTSIDE RECORDS SUMMARY | 2024-11-01 10:46 | External Medical Summary ---
Author Name Unknown Address Unknown Organization K01:LABORATORY [facility] [place] - [address] [place] [address] Laboratory Report Ordering Provider Test Date Status MELBA CORNELL 09/25/2024 12:57:12 Final Observation Date Value Abnormality Reference (Units ) Status BUN 09/25/2024 12:57:12 18 6-20 (mg/dL) Final Creatinine 09/25/2024 12:57:12 1.4 Above high normal 0.5-1.0 (mg/dL) Final Glomerular filtration rate/1.73 sq M.predicted [Volume Rate/Area] in Serum, Plasma or Blood by Creatinine-based formula (CKD-EPI) 09/25/2024 12:57:12 45 Below low normal >=60 (mL/min) Final eGFR is calculated based on the CKD-EPI 2020 equation. Sodium 09/25/2024 12:57:12 144 135-146 (m mol/L) Final Potassium 09/25/2024 12:57:12 3.7 3.5-5.1 (m mol/L) Final Cl 09/25/2024 12:57:12 101 98-107 (mm ol/L) Final CO2 09/25/2024 12:57:12 31 22-32 (mmo l/L) Final Anion gap 09/25/2024 12:57:12 12 7-15 (mmol /L) Final Glucose 09/25/2024 12:57:12 98 70-120 (mg /dL) Final Albumin 09/25/2024 12:57:12 4.2 3.8-5.0 (g /dL) Final AST (Aspartate aminotransferase) 09/25/2024 12:57:12 24 10-35 (U/L) Fin al Alk Phos 09/25/2024 12:57:12 137 Above high normal 35 -130 (U/L) Final Bilirubin, Total 09/25/2024 12:57:12 0.6 <=1 .2 (mg/dL) Final Calcium 09/25/2024 12:57:12 9.6 8.4-10.2 ( mg/dL) Final Protein 09/25/2024 12:57:12 7.0 6.0-8.3 (g /dL) Final ALT (Alanine aminotransferase) 09/25/2024 12:57:12 16 10-35 (U/L) [place] rose Performing Location LABORATORY [facility] [place] - [facility] [address] [address]
--- OUTSIDE RECORDS SUMMARY | 2024-11-01 10:46 | External Medical Summary ---
Author Name Unknown Address Unknown Organization K01:LABORATORY [facility] [place] - [facility] [address] [facility] [address] Laboratory Report Ordering Provider Test Date Status MELBA CORNELL 09/25/2024 12:57:12 Final Observation Date Value Abnormality Reference (Units ) Status WBC, Total 09/25/2024 12:57:12 7.71 4.00-10.80 (K/uL) Final RBC 09/25/2024 12:57:12 4.62 3.85-5.15 (M/uL) Final Hemoglobin 09/25/2024 12:57:12 13.2 12.0-15.3 (g/dL) Final HCT 09/25/2024 12:57:12 41.4 36.0-45.2 (%) Final MCV 09/25/2024 12:57:12 89.6 81.5-97.5 (fL) Final MCH 09/25/2024 12:57:12 28.6 27.0-34.0 (pg) Final MCHC 09/25/2024 12:57:12 31.9 32.0-36.0 (g/dL) Final RDW 09/25/2024 12:57:12 13.3 11.5-15.5 (%) Final Platelets 09/25/2024 12:57:12 281 140-400 (K/uL) Final MPV 09/25/2024 12:57:12 10.5 6.6-11.1 (fL) Final Nucleated erythrocytes/100 leukocytes [Ratio] in Blood by Automated count 09/25/2024 12:57:12 0 <=0 (/100 WBCs) Final Performing Location LABORATORY [facility] [place] - [address] [place] [address]
--- OUTSIDE RECORDS SUMMARY | 2024-11-01 10:46 | External Medical Summary | Summary of Care ---
Author Name Unknown Organization [facility] Address [address] [place] [address] Phone [phone] Care Team Providers Care Health Education Teacher Name Role Phone Unavailable Primary Care Provider Unavailabl e Reason for Visit * Reason Onset Date Comments Advice 09/06/2024 Info for letter as per note yesterday Encounter Details Date Type Department Care Team (Late st Contact Info) Description 09/06/2024 Telephone [facility] Abhi Vanegas [address] [facility] [place] [address] Kayden Blas MD [address] [place] [address] Advice (Info for letter as per note yester... Medications Amphetamine-De xtroamphetamin e 20 MG Oral Tablet (Adderall) Take 1 Tablet by mouth in the morning. Active Ketoconazole 2 % External Shampoo (Nizoral) Apply topically to affected area every 3 days. Shampoo twice a week 600 mL 3 09/11/19 25 Active Mometasone Furoate 0.1 % External Ointment Apply 1 g topically to affected area in the morning. 45 g 3 09/11/19 25 Active Mometasone Furoate 0.1 % External Solution (Elocon) Apply topically to affected area daily. To affected area. 60 mL 5 09/05/19 25 025 Discontinued Ketoconazole 2 % External Shampoo (Nizoral) Apply topically to affected area every 3 days for 28 days. Shampoo twice a week 120 mL 1 09/05/19 25 025 Discontinued(Re fill) documented as of this encounter (statuses as of 09/11/2024) Active Problems Problem Noted Date Diagnosed Date Psoriasis 09/05/2024 Dry skin dermatitis 09/05/2024 JERONIMO (generalized anxiety disorder) 09/05/2024 ADHD (attention deficit hype ractivity disorder), combined type 09/05/2024 Episode of recurrent major depressive disorder 0 09/05/2024 documented as of this encounter (statuses as of 09/11/2024) Social History Tobacco Use Types Packs/Day Years Used Date Smoking Tobacco: Never Assessed Comments Unknown Sex and Gender Information Value Date Recorded Sex Assigned at Not on file Legal Sex Female 12:18 PM EST Gender Identity Not on file Sexual Orientation Not on file documented as of this encounter Miscellaneous Notes * Telephone Encounter - Concepcion Loera LPN - 09/11/2024 2:33 PM EST Form faxed * Telephone Encounter - Kayden lBas MD - 09/11/2024 1:47 PM EST Signed Please fax the form * Telephone Encounter - Concepcion Loera LPN - 09/11/2024 1:36 PM EST The pt is asking if we still have the form from [facility] Plasma Letter head. She needs the note on theirletter head. Do have it? If not I can see if we can get another one. * Addendum Note - Kayden Blas MD - 09/11/2024 9:49 AM ESTAddended by: KAYDEN BLAS on: 09/11/2024 09:49 AM Modules accepted: Orders * Telephone Encounter - Kayden Blas MD - 09/11/2024 9:44 AM EST Letter was an official [facility] form. And I documented exactly as patient requested So pt should provide exact information she needs on the letter And will send other top medications as requested * Telephone Encounter - Kay Mcclure OSA - 09/08/2024 3:15 PM EST Pt calling regarding the letter that was written for Pt in order to donate blood/plasma. She indicated that they will not accept the information that was sent over; it needs to be on the form that Pt faxed into office on the [facility] Plasma Letter head. Please resend letter accordingly. Also the scripts that were sent in needs corrected. She stated the that shampoo Ketoconazole 2 % that was send was a small container, she would need something larger then that. Also the Mometasone Furoate 0.1 % was to be an ointment not a solution. Please provide a return call; pt is asking for this to be completed today. * Telephone Encounter - Domonique Trevino LPN - 09/08/2024 12:08 PM EST Letter sent and faxed to number below. * Telephone Encounter - Kayden Blas MD - 09/08/2024 12:01 PM EST Wrote a letter Please fax it * Telephone Encounter - Edwin Camara MD - 09/06/2024 6:20 PM EST Defer to Dr. Blas for letter. Edwin Camara MD * Telephone Encounter - Thao Garcia OSA - 09/06/2024 2:43 PM EST Patient calling with information for plasma letter as discussed at yesterdays visit. She states letter needs to states she does not have nerve damage and it is safe to donate blood/plasma [facility] Plasma fax# [phone] Her donor# [id number] Patient states her phone is currently shut off, she was instructed to call back in 24-48 hours to check status of message. documented in this encounter Plan of Treatment Health Maintenance Due Date Last Done Comments Lipid Panel 1968 Depression Monitoring 1980 HIV Screening 1983 Hepatitis C Screening 1986 DTap/Tdap Vaccines (1 [...] 2024 Influenza Vaccine (FLU shot) (#1) 2024 HPV (Gardasil) Vaccine Aged Out No lo nger eligible based on patient's age to complete this topic MENINGOCOCCAL (MENACTRA/MENVEO) Aged Out No longer eligible based on patient's age to complete this topic documented as of this encounter Medical Devices Not on filedocumented as of this encounter
--- OUTSIDE RECORDS SUMMARY | 2024-11-01 10:46 | External Medical Summary | Summary of Care ---
Author Name Unknown Organization [facility] Address [address] [place] [address] Phone [phone] Care Team Providers Care News Library Director Name Role Phone Unavailable Primary Care Provider Unavailabl e Reason for Visit * Reason Onset Date Comments Advice 09/06/2024 Info for letter as per note yesterday Encounter Details Date Type Department Care Team (Late st Contact Info) Description 09/06/2024 Telephone [facility] Abhi Vanegas [address] [facility] [place] [address] Kayden Blas MD [address] [facility] [place] [address] Advice (Info for letter as per note [...] Form faxed * Telephone Encounter - Kayden Blas MD - 09/11/2024 1:47 PM EST Signed Please fax the form * Telephone Encounter - Concepcion Loera LPN - 09/11/2024 1:36 PM EST The pt is asking if we still have the form from [facility] Plasma Letter head. She needs the [...] that Pt faxed into office on the [facility] Plasma Letter head. Please resend letter [...] safe to donate blood/plasma CLS Plasma fax# [phone] Her donor# [id number] Patient states her phone is currently shut [...]
--- OUTSIDE RECORDS SUMMARY | 2024-11-01 10:46 | External Medical Summary ---
Author Name Unknown Address Unknown Organization K01:LABORATORY [facility] - [facility] [address] [facility] [address] Laboratory Report Ordering Provider Test Date Status MELBA CORNELL 09/25/2024 12:57:12 Final Observation Date Value Abnormality Reference (Units ) Status Cyclic citrullinated peptide IgG Ab [Presence] in Serum 09/25/2024 12:57:12 Negative Negative Final Cyclic citrullinated peptide IgA+IgG Ab [Units/volume] in Serum or Plasma by Immunoassay 09/25/2024 12:57:12 1.1 <7 (U/mL) Final Performing Location LABORATORY [facility] - [facility] [address] [facility] [address]
--- OUTSIDE RECORDS SUMMARY | 2024-11-01 10:46 | External Medical Summary ---
Author Name Unknown Address Unknown Organization K01:LABORATORY [facility] - [address] [facility] [address] Laboratory Report Ordering Provider Test Date Status MELBA CORNELL 09/25/2024 12:57:12 Final Observation Date Value Abnormality Reference (Units ) Status HbA1C 09/25/2024 12:57:12 5.5 4.0-5.6 (% ) Final The use of HbA1c to monitor glycemic status is based on normal hemoglobin and HbA composition. This test should not be used in patients with abnormal hemoglobin that affects the half life of the red blood cell or the in vivo glycation rates. Glucose, estimated average 09/25/2024 12:57:12 111 <126 (mg/dL) Final Performing Location LABORATORY [facility] - [address] [place] [address]
--- OUTSIDE RECORDS SUMMARY | 2024-11-01 10:46 | External Medical Summary | Summary of Care ---
Author Name Unknown Organization [facility] Address [address] [place] [address] Phone [phone] Care Team Providers Care Missionary Coordinator Name Role Phone Unavailable Primary Care Provider Unavailabl e Reason for Referral * Evaluate & Treat - Unlimited Visits (Within 10 days (routine)) - Pending Review Specialty Diagnoses / Procedures Referred By Monique ho Referred To Contact Dermatology Diagnoses Psoriasis Dry skin dermatitis Kayden Blas MD [address] [address] Phone: tel: fax: Referral ID Status Reason Start Date Expiration Date Visits Requested Visits Authorized [id number] Pending Review Specialty Services Required 09/05/2024 999 999 Question Answer Referral Priority Within 10 days (routine) Where should this appointment be scheduled? [facility] Are you referring the patient for Mohs Surgery and have a current positive skin cancer biopsy result? No What is the reason for the patient referral? Rash/Skin Check/Eval of Lesion or Mole Encounter Details Date Type Department Care Team (Late Contact Info) Description 09/05/2024 11:20 AM EST [facility] [address] [phone] Kayden Blas MD [address] [address] Psoriasis*; Dry skin dermatitis; JERONIMO (generalized anxiety disorder); ADHD (attention deficit hyperactivity disorder), combined type; Episode of recurrent major depressive disorder, unspecified depression episode severity (HCC); Encounter for screening mammogram for breast cancer Medications Mometasone Furoate 0.1 % External Solution (Elocon) Apply topically to affected area daily. To affected area. 60 mL 5 5 Active Ketoconazole 2 % External Shampoo (Nizoral) Apply topically to affected area every 3 days for 28 days. Shampoo twice a week 120 mL 1 5 10/04/19 25 Active Amphetamine-Dex troamphetamine 20 MG Oral Tablet (Adderall) Take 1 Tablet by mouth in the morning. Active documented as of this encounter (statuses as of 09/05/2024) Active Problems Problem Noted Date Diagnosed Date Psoriasis 09/05/2024 Dry skin dermatitis 09/05/2024 JERONIMO (generalized anxiety disorder) 09/05/2024 ADHD (attention deficit hype ractivity disorder), combined type 09/05/2024 Episode of recurrent major depressive disorder 0 09/05/2024 documented as of this encounter (statuses as of 09/05/2024) Social History Tobacco Use Types Packs/Day Years Used Date Smoking Tobacco: Never Assessed Comments Unknown Sex and Gender Information Value Date Recorded Sex Assigned at Not on file Legal Sex Female 12:18 PM EST Gender Identity Not on file Sexual Orientation Not on file documented as of this encounter Progress Notes * Kayden Blas MD - 09/05/2024 11:15 AM EST Jorge Proctor is a 54 year old female. No chief complaint on file. HPI: Patient location: HOME. I was in a hospital or clinic location. After connecting through [employer],patient was verified with two unique identifiers. Patient (or authorized legal volunteer patient representative) was then informed that this was a Telemedicine visit and being conducted confidentially over secure lines. Methods to assure confidentiality were taken. Patient acknowledged consent and understanding of pr ivacy and security of the Telemedicine visit. The patient agreed to participate. New pt here, moved to [place] 7 mo ago , originally moved Living in care home currently in [place] - for 7 wks now [employer] profession and is looking for a job Was living in [place] Hx of psoriasis - was using steroid cream, needs a refill Also has itchy scalp , dry skin issue Would like to see derm Known anxiety + , ADHD , depression seeing psych - adderall 20 bid , klonopin 1 mg bid , anti depression med, latuda Video once a month Has chronic numbness focal lesion on finger tip - no change for years Used to do blood donation in [place] But when she mentioned it at blood donation center, they requested to have a letter from doctor forclearance and negative for nerve damage No recent routine check up PMH: Patient Active Problem List Diagnosis Psoriasis Dry skin dermatitis JERONIMO (generalized anxiety disorder) ADHD (attention deficit hyperactivity disorder), combined type Episode of recurrent major depressive disorder (HCC) Current Outpatient Medications Medication Sig Dispense Refill Mometasone Furoate 0.1 % External Solution (Elocon) Apply topically to affected area daily. To affected area. 60 mL 5 Ketoconazole 2 % External Shampoo (Nizoral) Apply topically to affected area every 3 days for 28 days. Shampoo twice a week 120 mL 1 Amphetamine-Dextroamphetamine 20 MG Oral Tablet (Adderall) Take 1 Tablet by mouth in the morning. No current facility-administered medications for this visit. No past medical history on file. No past surgical history on file. Review of patient's allergies indicates: Not on File No family history on file. No family status information on file. Social History Socioeconomic History Marital status: Spouse name: Not on file Number of children: Not on file Years of education: Not on file Highest education level: Not on file Occupational History Not on file Tobacco Use Smoking status: Not on file Smokeless tobacco: Not on file Substance and Sexual Activity Alcohol use: Not on file Drug use: Not on file Sexual activity: Not on file Other Topics Concern Not on file Social History Narrative Not on file Social Needs Financial Resource Strain: Not on file Food Insecurity: Not on file Transportation Needs: Not on file Social Connections: Not on file Housing Stability: Not on file Review of Systems Constitutional: Negative for activity change, appetite change, chills, diaphoresis, fatigue, fever and unexpected weight change. Respiratory: Negative. Cardiovascular: Negative. Gastrointestinal: Negative for abdominal distention and abdominal pain. Skin: Positive for rash (face, ear , dry scalp). Neurological: Negative for dizziness and light-headedness. Psychiatric/Behavioral: Negative for agitation and behavioral problems. Objective There were no vitals taken for this visit. Physical Exam Constitutional: General: She is not in acute distress. Appearance: Normal appearance. She is obese. She is not ill-appearing, toxic- appearing or diaphoretic. HENT: Head: Normocephalic and atraumatic. Nose: Nose normal. Eyes: Extraocular Movements: Extraocular movements intact. Pulmonary: Effort: Pulmonary effort is normal. Skin: Findings: Rash present. Neurological: Mental Status: She is alert and oriented to person, place, and time. Psychiatric: Behavior: Behavior normal. Comments: Anxiety , ADHD ASSESSMENT/PLAN: Psoriasis (Primary) - DERMATOLOGY REFERRAL OP Dry skin dermatitis - DERMATOLOGY REFERRAL OP JERONIMO (generalized anxiety disorder) ADHD (attention deficit hyperactivity disorder), combined type Episode of recurrent major depressive disorder, unspecified depression episode severity ([facility]) Encounter for screening mammogram for breast cancer - MAMMOGRAM SCREENING TERRI BILATERAL; Future; Expected date: 09/05/2024 Other orders - Mometasone Furoate 0.1 % External Solution (Elocon); Apply topically to affected area daily. To affected area. - Ketoconazole 2 % External Shampoo (Nizoral); Apply topically to affected area every 3 days for 28days. Shampoo twice a week Check-out note: Refer to derm Refilled med Shampoo Sulfate- free body products Letter - pt will fax over documentation and info for plasma donation Hydration enough, body and face moisturizer Mammogram Kayden Blas MD documented in this encounter Plan of Treatment Scheduled Orders Name Type Priority Associated Diagnoses Orde r Schedule MAMMOGRAM SCREENING TERRI BILATERAL Medical Imaging Routine Encounter for screening mammogram for breast cancer Expected: 09/05/2024, Expires: 10/03/2025 Scheduled Referrals Name Type Priority Associated Diagnoses Orde r Schedule DERMATOLOGY REFERRAL OP Referral Within 10 days (routine) Psoriasis Dry skin dermatitis Ordered: 09/05/2024 Health Maintenance Due Date Last Done Comments Lipid Panel 1968 Depression Screening 1980 HIV Screening 1983 Hepatitis C Screening [...] as of this encounter Visit Diagnoses Diagnosis Psoriasis- Primary Other psoriasis Dry skin dermatitis Contact dermatitis and other eczema due to other specified agent JERONIMO (generalized anxiety disorder) Generalized anxiety disorder ADHD (attention deficit hyperactivity disorder), combined type Attention deficit disorder with hyperactivity Episode of recurrent major depressive disorder, unspecified depression episode severity (HCC) Encounter for screening mammogram for breast cancer documented in this encounter
--- OUTSIDE RECORDS SUMMARY | 2024-11-01 10:46 | External Medical Summary | Summary of Care ---
Author Name Unknown Organization [facility] Address [address] [place] [address] Phone [phone] Care Team Providers Care Film Laboratory Technician Name Role Phone Unavailable Primary Care Provider Unavailabl e Reason for Visit * Reason Onset Date Comments Advice 09/06/2024 Info for letter as per note yesterday Encounter Details Date Type Department Care Team (Late st Contact Info) Description 09/06/[address] [facility] Abhi Vanegas [address] [facility] [place] [address] Kayden Blas MD [address] [facility] [place] [address] Advice (Info for letter as per note [...] as of this encounter Miscellaneous Notes * Addendum Note - Kayden Blas MD - 09/11/2024 9:49 AM ESTAddended by: KAYDEN BLAS on: 09/11/2024 09:49 AM Modules accepted: Orders * Telephone Encounter - Kayden Blas MD - 09/11/2024 9:44 AM EST Letter was an official isinger form. And I documented exactly as patient [...] that Pt faxed into office on the [facility] Plasma Letter head. Please resend letter [...] safe to donate blood/plasma CLS Plasma fax# [phone] Her donor# [id number] Patient states her phone is currently shut [...]
--- OUTSIDE RECORDS SUMMARY | 2024-11-01 10:46 | External Medical Summary | Summary of Care ---
Author Name Unknown Organization [facility] Address [address] [place] [address] Phone [phone] Care Team Providers Care End Frazer Name Role Phone Unavailable Primary Care Provider Unavailabl e Reason for Visit * Reason Onset Date Comments Advice 09/06/2024 Info for letter as per note yesterday Encounter Details Date Type Department Care Team ([facility] st Contact Info) Description 09/06/2024 Telephone [facility] Abhi Vanegas [address] [facility] [place] [address] Kayden Blas MD [address] [facility] [address] [address] Advice (Info for letter as per note yester... Medications Mometasone Furoate 0.1 % External Solution [...] as of this encounter (statuses as of 09/08/2024) Active Problems Problem Noted Date Diagnosed Date Psoriasis 09/05/2024 Dry skin dermatitis 09/05/2024 JERONIMO (generalized anxiety disorder) 09/05/2024 ADHD (attention deficit hype ractivity disorder), combined type 09/05/2024 Episode of recurrent major depressive disorder 0 09/05/2024 documented as of this encounter (statuses as of 09/08/2024) Social History Tobacco Use Types Packs/Day Years Used Date Smoking Tobacco: Never Assessed Comments Unknown Sex and Gender Information Value Date Recorded Sex Assigned at Not on file Legal Sex Female 12:18 PM EST Gender Identity Not on file Sexual Orientation Not on file documented as of this encounter Miscellaneous Notes * Telephone Encounter - Kay Mcclure OSA - 09/08/2024 3:15 PM EST Pt calling regarding the letter that was written for Pt in order to donate blood/plasma. She indicated that they will not accept the information that was sent over; it needs to be on the form that Pt faxed into office on the [facility] Plasma Letter head. Please resend letter [...] safe to donate blood/plasma CLS Plasma fax# [phone] Her donor# [id number] Patient states her phone is currently shut [...]
--- OUTSIDE RECORDS SUMMARY | 2024-11-01 10:46 | External Medical Summary | Summary of Care ---
Author Name Unknown Organization [facility] Address [address] [place] [address] Phone [phone] Care Team Providers Care Aviation Tactical Readiness Officer Name Role Phone Unavailable Primary Care Provider Unavailabl e Reason for Visit * Reason Onset Date Comments Advice 09/06/2024 Info for letter as per note yesterday Encounter Details Date Type Department Care Team ([facility] st Contact Info) Description 09/06/2024 Telephone [facility] Abhi Vanegas [address] [facility] [place] [address] Kayden Blas MD [address] [facility] [address] [address] Advice (Info for letter as per note [...] that Pt faxed into office on the [facility] Plasma Letter head. Please resend letter [...] safe to donate blood/plasma CLS Plasma fax# [phone] Her donor# [id number] Patient states her phone is currently shut [...]
--- OUTSIDE RECORDS SUMMARY | 2024-11-01 10:46 | External Medical Summary ---
Author Name Unknown Address Unknown Organization K01:LABORATORY [facility] - [address] [place] [address] Laboratory Report Ordering Provider Test Date Status MELBA CORNELL 09/25/2024 12:57:12 Final Observation Date Value Abnormality Reference (Units ) Status Rheumatoid Factor 09/25/2024 12:57:12 11 <1 4 (IU/mL) Final Performing Location LABORATORY [facility] - [address] [place] [address]
--- OUTSIDE RECORDS SUMMARY | 2024-11-01 10:46 | External Medical Summary | Summary of Care ---
Author Name Unknown Organization [facility] Address [address] [place] [address] Phone [phone] Care Team Providers Care Interchange Agent Name Role Phone Unavailable Primary Care Provider Unavailabl e Reason for Visit * Reason Onset Date Comments Advice 09/06/2024 Info for letter as per note yesterday Encounter Details Date Type Department Care Team (Late st Contact Info) Description 09/06/2024 Telephone [facility] Abhi Vanegas [address] [facility] [place] [address] Kayden Blas MD [address] [facility] [place] [address] Advice (Info for letter as per note [...] encounter Miscellaneous Notes * Telephone Encounter - Cocnepcion Loera LPN - 09/11/2024 2:33 PM EST Form faxed * Telephone Encounter - Kaydne Blas MD - 09/11/2024 1:47 PM EST Signed Please fax the form * Telephone Encounter - Concepcion Loera LPN - 09/11/2024 1:36 PM EST The pt is asking if we still have the form from [facility] Plasma Letter head. She needs the [...] that Pt faxed into office on the [facility] Plasma Letter head. Please resend letter [...] safe to donate blood/plasma CLS Plasma fax# [phone] Her donor# [id number] Patient states her phone is currently shut [...]
--- OUTSIDE RECORDS SUMMARY | 2024-11-01 10:46 | External Medical Summary | Summary of Care ---
Author Name Unknown Organization [facility] Address [address] [place] [address] Phone [phone] Care Team Providers Care Economic Development Specialist Name Role Phone Unavailable Primary Care Provider Unavailabl e Reason for Visit * Reason Onset Date Comments No Show 09/07/2024 [facility] No Show Auto mation Encounter Details Date Type Department Care Team ([facility] Contact Info) Description 09/07/2024 Telephone [facility] [address] [facility] [place] [address] Kraig Brantley MD [address] [place] [address] No Show ([place] No Show Automation) Medications Mometasone Furoate 0.1 % External Solution [...] as of this encounter (statuses as of 09/07/2024) Active Problems Problem Noted Date Diagnosed Date Psoriasis 09/05/2024 Dry skin dermatitis 09/05/2024 JERONIMO (generalized anxiety disorder) 09/05/2024 ADHD (attention deficit hype ractivity disorder), combined type 09/05/2024 Episode of recurrent major depressive disorder 0 09/05/2024 documented as of this encounter (statuses as of 09/07/2024) Social History Tobacco Use Types Packs/Day Years Used Date Smoking Tobacco: Never Assessed Comments Unknown Sex and Gender Information Value Date Recorded Sex Assigned at Not on file Legal Sex Female 12:18 PM EST Gender Identity Not on file Sexual Orientation Not on file documented as of this encounter Miscellaneous Notes * Telephone Encounter - Joey, No Show - 09/07/2024 5:44 AM EST Dear Ericka Proctor, Looks like you missed an appointment with KRAIG BRANTLEY on 09/04/2024 at 01:00 PM. If you haven't already rescheduled, you have a couple of options: Reschedule in [employer]/scheduling Call us at [phone] Can't make a future appointment? Cancel and let someone else have your spot! It's easy to do via [employer] or by calling us. Thanks for [facility] with your care. We hope to see you back in our office soon. Sincerely, KRAIG BRANTLEY documented in this encounter Plan of Treatment [...]
--- OUTSIDE RECORDS SUMMARY | 2024-11-01 10:46 | External Medical Summary ---
Author Name Unknown Address Unknown Organization K01:[facility] [address] [facility] [address] Laboratory Report Ordering Provider Test Date Status MELBA CORNELL 09/25/2024 12:57:12 Final Observation Date Value Abnormality Reference (Units ) Status CRP, low-sensitivity 09/25/2024 12:57:12 7 Above high normal <=5 (mg/L) Final Performing Location LAB[facility]ORY [facility] - [address] [place] [address]
--- OUTSIDE RECORDS SUMMARY | 2024-11-01 10:46 | External Medical Summary | Summary of Care ---
Author Name Unknown Organization [facility] Address [address] [place] [address] Phone [phone] Care Team Providers Care Channel Manager Name Role Phone Unavailable Primary Care Provider Unavailabl e Reason for Visit * Reason Onset Date Comments Advice 09/06/2024 Info for letter as per note yesterday Encounter Details Date Type Department Care Team ([facility] st Contact Info) Description 09/06/2024 Telephone [facility] Abhi Vanegas [address] [facility] [place] [address] Kayden Blas MD [address] [facility] [place] [address] [address] Advice (Info for letter as per note [...] that Pt faxed into office on the [facility] Plasma Letter head. Please resend letter [...] safe to donate blood/plasma CLS Plasma fax# [phone] Her donor# [id number] Patient states her phone is currently shut [...]
--- OUTSIDE RECORDS SUMMARY | 2024-11-01 10:46 | External Medical Summary | Summary of Care ---
Author Name Unknown Organization [facility] Address [address] [place] [address] Phone [phone] Care Team Providers Care Dough Machine Operator Name Role Phone Unavailable Primary Care Provider Unavailabl e Reason for Visit * Reason Onset Date Comments Advice 09/06/2024 Info for letter as per note yesterday Encounter Details Date Type Department Care Team (Late st Contact Info) Description 09/06/2024 Telephone [facility] Abhi Vanegas [address] [facility] [place] [address] Kayden Blas MD [address] [facility] [place] [address] Advice (Info for letter as per note [...] as of this encounter (statuses as of 09/12/2024) Active Problems Problem Noted Date Diagnosed Date Psoriasis 09/05/2024 Dry skin dermatitis 09/05/2024 JERONIMO (generalized anxiety disorder) 09/05/2024 ADHD (attention deficit hype ractivity disorder), combined type 09/05/2024 Episode of recurrent major depressive disorder 0 09/05/2024 documented as of this encounter (statuses as of 09/12/2024) Social History Tobacco Use Types Packs/Day Years Used Date Smoking Tobacco: Never Assessed Comments Unknown Sex and Gender Information Value Date Recorded Sex Assigned at Not on file Legal Sex Female 12:18 PM EST Gender Identity Not on file Sexual Orientation Not on file documented as of this encounter Miscellaneous Notes * Telephone Encounter - Alexandra Sanders OSA - 09/12/2024 12:51 PM EST Reason for patient's call: speak with the office about form/letter head Caller was transferred to Noreen at the clinic. Per Noreen and Austen it was sent on the [facility] letter head that they sent us about an hour ago. They should have what they need. * Telephone Encounter - Concepcion Loera LPN - 09/11/2024 2:33 PM EST Form faxed * Telephone Encounter - Kayden Blas MD - 09/11/2024 1:47 PM EST Signed Please fax the form * Telephone Encounter - Concepcion Loera LPN - 09/11/2024 1:36 PM EST The pt is asking if we still have the form from [facility] Plasma Letter head. She needs the [...] that Pt faxed into office on the [facility] Plasma Letter head. Please resend letter [...] safe to donate blood/plasma CLS Plasma fax# [phone] Her donor# [id number] Patient states her phone is currently shut [...] Vaccines (1 of 2) 2018 COVID-19 Vaccine (2023-2 5 season) 2024 Influenza Vaccine (FLU shot) (#1) 2024 HPV (Gardasil) Vaccine Aged Out No lo nger eligible based on patient's age to complete this topic MENINGOCOCCAL (MENACTRA/MENVEO) Aged Out No longer eligible based on patient's age to complete this topic documented as of this encounter Medical Devices Not on filedocumented as of this encounter
--- OUTSIDE RECORDS SUMMARY | 2024-11-01 10:46 | External Medical Summary | Summary of Care ---
Author Name Unknown Organization [facility] Address [address] [place] [address] Phone [phone] Care Team Providers Care Lumber Driver Name Role Phone Unavailable Primary Care Provider Unavailabl e Reason for Visit * Reason Onset Date Comments Advice 09/06/2024 Info for letter as per note yesterday Encounter Details Date Type Department Care Team (Late st Contact Info) Description 09/06/2024 Telephone [facility] Abhi Vanegas [address] [facility] [address] Kayden Blas MD [address] [facility] [place] [address] Advice (Info for letter as per note [...] if we still have the form from [facility] Plasma Letter head. She needs the [...] that Pt faxed into office on the [facility] Plasma Letter head. Please resend letter [...] safe to donate blood/plasma CLS Plasma fax# [phone] Her donor# [id number] Patient states her phone is currently shut [...]
--- OUTSIDE RECORDS SUMMARY | 2024-11-01 10:46 | External Medical Summary ---
Author Name Unknown Address Unknown Organization [id number]:[facility]ATORY [facility] [place] - [address] [place] [address] Laboratory Report Ordering Provider Test Date Status MELBA CORNELL 09/25/2024 12:57:12 Final Observation Date Value Abnormality Reference (Units ) Status Erythrocyte sedimentation rate by Photometric method 09/25/2024 12:57:12 29 <30 (mm/hour) Final Performing Location [facility]ATORY [facility] [place] - [address] [place] [address]
--- OUTSIDE RECORDS SUMMARY | 2024-11-01 10:46 | External Medical Summary | Summary of Care ---
Author Name Unknown Organization [facility] Address [address] [place] [address] Phone [phone] Care Team Providers Care Commodities Trader Name Role Phone Unavailable Primary Care Provider Unavailabl e Reason for Referral * Evaluate & Treat - Unlimited Visits (Within 10 days (routine)) - Pending Review Specialty Diagnoses / Procedures Referred By Monique ho Referred To Contact Dermatology Diagnoses Psoriasis Dry skin dermatitis Kayden Blas MD [address] [address] Phone: tel: fax: Referral ID Status Reason Start Date Expiration Date Visits Requested Visits Authorized [id number] Pending Review Specialty Services Required 09/05/2024 999 [...] Info) Description 09/05/2024 11:20 AM EST Telemedicine [facility] [address] [id number] Kayden Blas MD [address] [address] [...] hospital or clinic location. After connecting through [employer],patient was verified with two unique identifiers. Patient (or authorized legal claim representative) was then informed that this was a Telemedicine visit and being conducted confidentially over secure lines. Methods to assure confidentiality were taken. Patient acknowledged consent and understanding of pr ivacy and security of the Telemedicine visit. The patient agreed to participate. 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
--- OUTSIDE RECORDS SUMMARY | 2024-11-01 10:46 | External Medical Summary | Summary of Care ---
Author Name Unknown Organization [facility] Address [address] [place] [address] Phone [phone] Care Team Providers Care Pourer Crane Ladle Name Role Phone Unavailable Primary Care Provider Unavailabl e Encounter Details Date Type Department Care Team (Late st Contact Info) Description 09/06/2024 Telephone [facility] [address] [place] [address] Kayden Blas MD [address] [facility] [address] [address] Medications Mometasone Furoate 0.1 % External Solution [...] as of this encounter (statuses as of 09/06/2024) Active Problems Problem Noted Date Diagnosed Date Psoriasis 09/05/2024 Dry skin dermatitis 09/05/2024 JERONIMO (generalized anxiety disorder) 09/05/2024 ADHD (attention deficit hype ractivity disorder), combined type 09/05/2024 Episode of recurrent major depressive disorder 0 09/05/2024 documented as of this encounter (statuses as of 09/06/2024) Social History Tobacco Use Types Packs/Day Years Used Date Smoking Tobacco: Never Assessed Comments Unknown Sex and Gender Information Value Date Recorded Sex Assigned at Not on file Legal Sex Female 12:18 PM EST Gender Identity Not on file Sexual Orientation Not on file documented as of this encounter Miscellaneous Notes * Telephone Encounter - Noreen Boogie OSA - 09/06/2024 11:05 AM EST Called patient to schedule Dermatology and Mammogram and received a message that states "The personyou are trying to reach is not accepting calls right now". Patient does not have MyG. Letter sent. 09/06/2024 documented in this encounter Plan of Treatment [...]
--- OUTSIDE RECORDS SUMMARY | 2024-11-01 10:46 | External Medical Summary ---
Author Name Unknown Address Unknown Organization K01:[facility] - [address] [place] [address] Laboratory Report Ordering Provider Test Date Status MELBA CORNELL 09/25/2024 12:57:12 Final Observation Date Value Abnormality Reference (Units ) Status Hep C Ab 09/25/2024 12:57:12 Negative Negative Final Further HCV quantitative chantel ting not performed per protocol. Performing Location LAB[facility]ATORY [facility] - [address] [place] [address]
--- OUTSIDE RECORDS SUMMARY | 2024-11-01 10:46 | External Medical Summary | Summary of Care ---
Author Name Unknown Organization [facility] Address [address] [place] [address] Phone [phone] Care Team Providers Care Lease Out Worker Name Role Phone Unavailable Primary Care Provider Unavailabl e Reason for Visit * Reason Onset Date Comments Advice 09/06/2024 Info for letter as per note yesterday Encounter Details Date Type Department Care Team ([facility] st Contact Info) Description 09/06/2024 Telephone [facility] Abhi Vanegas [address] [facility] [place] [place] [address] Kayden Blas MD [address] [facility] [address] [address] Advice (Info for letter as per note [...] that Pt faxed into office on the [facility] Plasma Letter head. Please resend [...] safe to donate blood/plasma CLS Plasma fax# [phone] Her donor# [id number] Patient states her phone is currently shut [...]
--- OUTSIDE RECORDS SUMMARY | 2024-11-01 10:46 | External Medical Summary | Summary of Care ---
Author Name Unknown Organization [facility] Address [address] [place] [address] Phone [phone] Care Team Providers Care Regional Extension Service Specialist Name Role Phone Unavailable Primary Care Provider Unavailabl e Reason for Visit * Reason Onset Date Comments Advice 09/06/2024 Info for letter as per note yesterday Encounter Details Date Type Department Care Team (Late st Contact Info) Description 09/06/2024 Telephone [facility] Abhi Vanegas [address] [facility] [place] [address] Kayden Blas MD [address] [facility] [place] [address] Advice (Info for letter as per note [...] and Austen it was sent on the [facility] letter head that they sent us about [...] if we still have the form from [facility] Plasma Letter head. She needs the note on theirletter head. Do have it? If not I can see if we can get another one. * Addendum Note - Kayden Blas MD - 09/11/2024 9:49 AM ESTAddended by: KAYDEN BLAS on: 09/11/2024 09:49 AM Modules accepted: Orders * Telephone Encounter - Kadyen Blas MD - 09/11/2024 9:44 AM EST [...] that Pt faxed into office on the [facility] Plasma Letter head. Please resend letter accordingly. [...] to number below. * Telephone Encounter - Kayedn Blas MD - 09/08/2024 12:01 PM EST [...] safe to donate blood/plasma CLS Plasma fax# [phone] Her donor# [id number] Patient states her phone is currently shut [...]
--- OUTSIDE RECORDS SUMMARY | 2024-11-01 10:46 | External Medical Summary ---
Author Name Unknown Address Unknown Organization K01:[facility] - [address] [facility] [place] [address] Laboratory Report Ordering Provider Test Date Status KIKA CORNELLO 09/25/2024 12:57:12 Final Observation Date Value Abnormality Reference (Units ) Status Triglyceride 09/25/2024 12:57:12 156 <=174 ( mg/dL) Final Triglyceride Reference Range s (mg/dL):
<150 Acceptable
150-174 Borderline high
175-499 High
>=500 Very high Cholesterol 09/25/2024 12:57:12 409 Above high normal <200 (mg/dL) Final Total Cholesterol Reference Ranges (mg/dL):
<200 Desirable
200-239 Borderline high
>=240 High HDL 09/25/2024 12:57:12 54 >49 (mg/dL ) Final HDL Cholesterol Reference Ra nges (mg/dL):
>=60 High (Desirable)
<50 Low (Undesirable) For Females
<40 Low (Undesirable) For Males NON-HDL CHOLESTEROL 09/25/2024 12:57:12 355 Above high normal <=159 (mg/dL) Final Non-HDL Cholesterol Referenc e Range (mg/dL):
<100 Target level for high risk ASCVD patient
<130 Optimal for general population
130-159 Near optimal for general population
160-189 Borderline High
190-219 High
>=220 Very High LDL, (calculated) 09/25/2024 12:57:12 324 Above high n ormal <=129 (mg/dL) Final LDL Cholesterol Reference Ra nges (mg/dL):
<70 Target level for high risk ASCVD patient
<100 Optimal for general population
100-129 Near optimal for general population
130-159 Borderline high
160-189 High
>=190 Very high Performing Location [facility] [address] [facility] [address]
--- OUTSIDE RECORDS SUMMARY | 2024-11-01 10:46 | External Medical Summary ---
Author Name Unknown Address Unknown Organization K01[facility] [address] [place] [address] Ave. [facility] [address] Laboratory Report Ordering Provider Test Date Status MELBA CORNELL 09/25/2024 12:57:12 Final Observation Date Value Abnormality Reference (Units ) Status HIV 1+2 Ab+HIV1 p24 Ag [Presence] in Serum or Plasma by Immunoassay 09/25/2024 12:57:12 Negative Negative Final Negative HIV-1/2 antigen and antibody screening tset results usually indicate the absence of HIV-1 and HIV-2 infection. However, such negative results do not rule-out acute HIV infection. If acute HIV-1 infection is highly suspected, it is recommended that a specimen be submitted for detection of HIV-1 RNA. Performing Location [facility] [address] [facility] [address]
--- NOTE | 2024-11-01 10:49 | CT Scan Report ---
CT knee LT wo con CLINICAL HISTORY: pain s/p fall COMPARISON STUDY: Left knee radiographs October 31, 2024. TECHNIQUE: Axial images of the left knee were obtained without IV contrast. Sagittal and coronal refo rmats were viewed. FINDINGS: Lateral patellar tilt is noted. A large left knee joint effusion is present. There is no li pohemarthrosis. There are no suspicious osseous lesions. Severe medial compartment joint space narrow ing is present. 2.5 cm focus of depression with osseous irregularity and bony fragmentation of the me dial femoral condyle is present. This favors a subchondral insufficiency fracture. No additional frac tures within the left knee are identified. Severe tricompartmental osteoarthritis within the left kne e is present. IMPRESSION: 1. Severe tricompartmental osteoarthritis of the left knee. 2. 2.5 cm focus or depression with osseous irregularity and bony fragmentation of the medial femoral condyle. This is suggestive of an age indeterminate subchondral insufficiency fracture. No additional fractures within the left knee. 3. Large left knee joint effusion. ACT 112: Negative or not required by law. Electronically signed by: Jose Hilton M.D. 11/01/2024 10:47 AM
--- NOTE | 2024-11-01 10:58 | CT Scan Report ---
CT pelvis wo con HISTORY: 54 years-old Female pubic rami fracture acute pelvic pain status post fall COMPARISON: Pelvis and hip radiographs 10/31/2024 TECHNIQUE: Multiple axial CT images of the pelvis were obtained without IV contrast. A dose lowering technique was used consistent with the principals of ALARA. FINDINGS: Atherosclerosis of the aorta and iliac arteries. Small fat filled umbilical hernia. Moderate colonic fecal retention. Mild nonspecific subcutaneous edema, lateral to the hips. Demineralized appearance to the bones. Degenerative changes of the imaged lower lumbar spine. Moderat e osteoarthritis of the hips. The proximal femora appear intact. The sacrum and iliac bones appear in tact. Acute mildly comminuted left superior and inferior pubic rami fractures demonstrate a few linda meters of displacement. Severe degeneration of the pubic sepsis. No acute right-sided pelvic ring fra cture. Mild adjacent deep tissue edema/hemorrhage. IMPRESSION: 1. Confirmation of the acute mildly comminuted slightly displaced left superior and inferior pubic ra mi fractures. 2. Moderate osteoarthritis of the hips without additional acute fracture or dislocation identified. 3. Severe degeneration of the pubic symphysis. ACT 112: Negative or not required by law. The above report was generated using voice recognition software. It may contain grammatical, syntax o r spelling errors. Electronically signed by: Nico Kohli M.D. 11/01/2024 10:57 AM
[2024-11-01] MEDS ORDERED: oxyCODONE HCL IR 5 MG TAB (IMMEDIATE RELEASE) PO PRN (11:02)
--- NOTE | 2024-11-01 11:14 | Hospitalist Progress Note ---
Date of Service November 01, 2024 Assessment & Plan (1) Fracture of ramus of left pubis: (2) Effusion, left knee: (3) Femoral condyle fracture: (4) Prolonged QT interval: (5) Hypokalemia: (6) Ambulatory dysfunction: (7) Acute kidney injury: (8) Complex psychiatric condition: Plan Patient 54-year-old female presents with a fall and subsequent pubic ramus fracture. Fall most likely due to left knee effusion and possible subacute/chronic femoral condyle fracture. Orthopedic consultation Therapies Pain control with scheduled Tylenol, increase gabapentin to 3 times daily, scheduled tramadol, as needed oxycodone dose dependent on pain severity Continue to replace potassium QTc has normalized, suspect may be due to electrolytes. Possibly due to her psychiatric meds. At this time risks of holding her psychiatric meds may outweigh benefits. Will resume her psychiatric meds. Can monitor QTc intermittently Follow-up potassium level Monitor kidney function, improving, avoid NSAIDs at this time Consult case management, patient reports that she is living in a half-way. Okay to [facility] Admission and Anticipated Discharge Date Admission Date: November 01, 2024 Subjective Patient states that she is still in a significant amount of pain left knee and pelvis. Physical Exam Physical Exam: Constitutional: Alert, obese, mild distress due to pain HEENT: Mucous membranes moist. Lungs: Clear to auscultation, decreased, no wheezes rales or rhonchi CV: S1-S2, regular Abdomen: Soft, nontender, nondistended Extremities: Left knee with large effusion, tender, no redness, no warmth. Significant pain to palpation of the pelvis Neuro: No focal deficits Psych: Cooperative, normal mood Results & Data Results & Data Vital Signs (Past 12 Hours) Vital Signs Temp Pulse Pulse Resp BP BP Pulse Ox 11/01/24 07:09 36.7 C 75 18 167/89 H 90 11/01/24 04:43 11/01/24 02:58 60 11/01/24 02:40 36.6 C 60 22 144/79 H 91 11/01/24 02:14 65 16 146/85 H 95 11/01/24 01:22 66 16 140/84 94 11/01/24 01:00 70 15 93 O2 Del Method O2 Flow Rate 11/01/24 07:09 Room Air 11/01/24 04:43 Room Air 11/01/24 02:58 11/01/24 02:40 Room Air 11/01/24 02:14 Nasal Cannula 2 11/01/24 01:22 Nasal Cannula 2 11/01/24 01:00 Nasal Cannula 2 Diagnostic Findings Reviewed imaging, laboratory and diagnostic studies. Pertinent findings as below. Personally reviewed EKG, sinus rhythm, QTc 499, significantly improved CT left knee shows severe osteoarthritis with possible age-indeterminate subchondral insufficiency fracture of the medial femoral condyle, large effusion CT pelvis confirms slightly displaced left superior and inferior pubic rami fractures. No other fractures or dislocations noted in the pelvis or hips Magnesium 2.4, improved Potassium 3.2, improved
[2024-11-01] MEDS: clonazePAM 1 MG TAB PO PRN (11:20)
[2024-11-01] MEDS: oxyCODONE HCL IR 5 MG TAB (IMMEDIATE RELEASE) PO PRN (11:20)
[2024-11-01] MEDS: traMADol HCL 50 MG TABLET PO SCH (13:10)
[2024-11-01] MEDS: DEXTROAMPHETAMINE/AMPHETAMINE IR 20 MG TAB PO SCH (13:11)
[2024-11-01] MEDS: HYDROmorphone INJ 0.5 MG/0.5 ML SYR IV STA (13:11)
--- NOTE | 2024-11-01 13:53 | Electrocardiogram Report ---
Test Reason : Blood Pressure : */* mmHG Vent. Rate : 74 BPM Atrial Rate : 74 BPM P-R Int : 162 ms QRS Dur : 88 ms QT Int : 450 ms P-R-T Axes : 71 31 79 degrees QTcB Int : 499 ms Normal sinus rhythm QTcB >= 480 msec Abnormal ECG When compared with ECG of 31-Oct-2024 19:44, QT has shortened Incomplete right bundle branch block no longer present Confirmed by Zuhair Thacker ([id number]) on 11/01/2024 1:53:01 PM Referred By: REFERRED SELF Confirmed By: Zuhair Thacker
[2024-11-01] MEDS: POTASSIUM CHLORIDE CRTAB 20 MEQ TABCR PO ONE (16:27)
[2024-11-01] MEDS: ACETAMINOPHEN 500 MG TAB PO PRN (16:27)
--- NOTE | 2024-11-01 18:24 | Orthopedic Consultation ---
Date of Consultation November 01, 2024 Assessment & Plan (1) Fracture of ramus of left pubis: (2) Osteoarthritis of left knee: (3) Ambulatory dysfunction: (4) Complex psychiatric condition: (5) Acute kidney injury: Lovely Lebron is a 54-year-old female who presents after a fall onto her left side where an she sustained fractures of her superior and inferior pubic rami on the left. Additionally, she seems to have aggravated underlying osteoarthritis in her knee during the fall. I do long discussion the patient regarding the nature of this injury. We discussed in great detail the pathoanatomy, pathophysiology, treatment options. With regards to her pubic rami, my recommendation is for nonoperative management with weightbearing as tolerated. I explained to her that it can oftentimes take 2 to 3 months before pain in her pelvis region completely resolves. I expressed to her the importance of getting up and getting moving so as to prevent complications of immobilization such as DVT, pneumonia, decubitus ulcers. With the guards the patient's knee, I do not appreciate any new acute osseous abnormality, and I suspect that she had an exacerbation of her chronic underlying osteoarthritis. My recommendation is for continued pain control with lidocaine patches, ice, and for continued therapy to prevent stiffness. No plans for acute orthopedic intervention Patient can follow-up with me in the office in about 2 weeks. History of Present Illness Reason for Consultation: Left hip and knee pain Attending Physician: Uvaldo Winkler DO History of Present Illness 54-year-old female with past medical history significant for hypertension, back pain, knee pain, history of SOURAV secondary to naproxen use, history of anxiety and depression and follows with psychiatrist at [place] presents with fall and found to have left pubic rami fracture. she was admitted early this morning for ambulatory dysfunction due to this as well as significant left knee pain. Patient notes that she has a history of left knee issues and when she was trying to walk her left knee gave out on her and she fell onto her left side. Did not hit her head. No loss of consciousness. No chest pain or shortness of breath. patient notes that she was initially having pain in her left shoulder but this has started to subside. She does have chronic pain in the left shoulder and notes that her main concerns are her left knee and hip Allergies Allergy/AdvReac Type Severity Reaction Status Date / Time No Known Allergies Allergy Verified 10/31/24 23:43 Home Medications Medication Instructions Recorded Confirmed Type amlodipine 5 mg tablet 5 mg PO QAM 10/31/24 10/31/24 History clonazepam 1 mg tablet 1 mg PO BID PRN Anxiety 10/31/24 10/31/24 History dextroamphetamine-amphetamine 20 20 mg PO BID 10/31/24 11/01/24 History mg tablet meloxicam 15 mg tablet 15 mg PO QAM 10/31/24 10/31/24 History duloxetine 60 mg capsule,delayed 60 mg PO QPM 11/01/24 11/01/24 History release gabapentin 800 mg tablet 800 mg PO AMPM 11/01/24 11/01/24 History ketoconazole 2 % shampoo 1 applic topical Q3D 11/01/24 11/01/24 History lurasidone 40 mg tablet 40 mg PO QPM 11/01/24 11/01/24 History mometasone 0.1 % topical ointment 1 applic topical QAM 11/01/24 11/01/24 History naproxen 500 mg tablet 1,000 mg PO BID PRN Pain 11/01/24 11/01/24 History Patient History Social History Smoking Status: Current every day smoker Tobacco Type: E-cigarettes / Vaping Second Hand Exposure: No; Do You Dip or Chew Tobacco: No; Hx Alcohol Use: Yes Alcohol type: other Hx Substance Use: No Preferred Language: Hungarian Communication Ability: Effective Herb Counselor Required: No Beliefs That Will Affect Care: None Current Living Situation: Family Other Information That Helps Us Care for You: No Feels Safe at Home: Yes Safety Concerns: Feels Safe At This Time Assistive Devices: None Review of Systems Review of Systems: All systems reviewed & are unremarkable except as noted in HPI & below Physical Exam Physical Exam: On physical examination, the patient is tender palpation about her left hemipelvis. She is also tender about her left knee. There is a knee effusion present. Patient does demonstrate knee range of motion with pain, but states that this is similar to pain prior to the fall. No open wounds appreciated. No additional areas of concern within the left lower extremity. Demonstrates active EHL/FHL/GSC/TA function. Results & Data Vital Signs (Past 12 Hours) Vital Signs Temp Pulse Resp BP Pulse Ox O2 Del Method 11/01/24 15:23 36.8 C 79 18 142/75 H 94 Room Air 11/01/24 11:14 36.5 C 73 18 153/74 H 93 Room Air 11/01/24 07:09 36.7 C 75 18 167/89 H 90 Room Air Diagnostic Findings X-rays of the pelvis, left hip, left knee, left shoulder as well as CT scan of the pelvis and left knee were personally interpreted and reviewed. This demonstrates LC 1 injury to superior and inferior pubic ramus on the left without acute osseous abnormality in the left knee. The patient does have severe degenerative changes noted in her left knee with a chronic appearing osteochondral lesion in the medial femoral condyle. No acute osseous abnormalities demonstrated in the left shoulder.
[2024-11-01] MEDS: DULoxetine HCL 60 MG CAP PO SCH (20:38)
[2024-11-01] MEDS: LURASIDONE HCL 20 MG TAB PO SCH (20:38)
[2024-11-02 08:57] LABS: Calcium 8.9 mg/dl (8.6-10.3); Creatinine Clr Calc Pharmacy 76.9 ml/min; Magnesium 1.8 mg/dl (1.7-2.4); Potassium 3.5 mmol/L (3.5-5.1)
[2024-11-02] MEDS: traMADol HCL 50 MG TABLET PO SCH ×2 (09:16→13:18)
[2024-11-02] MEDS: POLYETHYLENE (MIRALAX) 17 GM PACK PO SCH (09:16)
[2024-11-02] MEDS ORDERED: oxyCODONE HCL IR 5 MG TAB (IMMEDIATE RELEASE) PO PRN (12:02)
--- NOTE | 2024-11-02 12:04 | Hospitalist Progress Note ---
Date of Service November 02, 2024 Assessment & Plan (1) Fracture of ramus of left pubis: (2) Effusion, left knee: (3) Femoral condyle fracture: (4) Prolonged QT interval: (5) Hypokalemia: Plan: Resolved (6) Ambulatory dysfunction: (7) Acute kidney injury: Plan: Resolved (8) Complex psychiatric condition: Plan Patient's pain is still fairly uncontrolled. Potassium has been replaced. Increase tramadol to 75 mg 3 times daily Decrease gabapentin back to her usual home dose of 800 mg twice daily Increase as needed oxycodone to 10 mg for moderate, 15 mg for severe Continue therapies Renal function has returned to baseline Case management pursuing placement options for rehabilitation Admission and Anticipated Discharge Date Admission Date: November 01, 2024 Subjective Patient states she is still in a significant amount of pain. Does not think that the tramadol or oxycodone has helped a lot. She states she does not tolerate the gabapentin at 3 times a day. Physical Exam Physical Exam: Constitutional: Alert, obese, mild distress secondary Santosh to pain HEENT: Mucous membranes moist. Lungs: Clear to auscultation, decreased, no wheezes rales or rhonchi CV: S1-S2, regular Abdomen: Soft, nontender, nondistended Extremities: No significant edema, persistent left knee effusion Neuro: No focal deficits Psych: Cooperative, slightly anxious Results & Data Results & Data Vital Signs (Past 12 Hours) Vital Signs Temp Pulse Resp BP Pulse Ox O2 Del Method 11/02/24 09:15 78 20 156/84 H 94 Room Air 11/02/24 07:35 36.6 C 85 16 182/84 H 92 Room Air Diagnostic Findings BMP reviewed, Potassium 3.5
[2024-11-02] MEDS: POTASSIUM CHLORIDE CRTAB 20 MEQ TABCR PO STA (12:33)
[2024-11-02] MEDS: oxyCODONE HCL IR 5 MG TAB (IMMEDIATE RELEASE) PO PRN (15:09)
[2024-11-02] MEDS: GABAPENTIN 800 MG TAB PO SCH (20:15)
--- NOTE | 2024-11-03 08:36 | History & Physical Report ---
Date of Service November 03, 2024 Assessment & Plan (1) Fracture of ramus of left pubis: (2) Effusion, left knee: (3) Femoral condyle fracture: (4) Prolonged QT interval: (5) Hypokalemia: Plan: Resolved (6) Ambulatory dysfunction: (7) Acute kidney injury: Plan: Resolved (8) Complex psychiatric condition: Plan Patient's pain is still fairly uncontrolled. Potassium has been replaced. Increase tramadol to 75 mg 3 times daily Decrease gabapentin back to her usual home dose of 800 mg twice daily Increase as needed oxycodone to 10 mg for moderate, 15 mg for severe Continue therapies Renal function has returned to baseline Case management pursuing placement options for rehabilitation Admission and Anticipated Discharge Date Admission Date: November 01, 2024 History of Present Illness Primary Care Provider: Christi Brantley MD Allergies Allergy/AdvReac Type Severity Reaction Status Date / Time No Known Allergies Allergy Verified 10/31/24 23:43 Home Medications Medication Instructions Recorded Confirmed Type amlodipine 5 mg tablet 5 mg PO QAM 10/31/24 10/31/24 History clonazepam 1 mg tablet 1 mg PO BID PRN Anxiety 10/31/24 10/31/24 History dextroamphetamine-amphetamine 20 20 mg PO BID 10/31/24 11/01/24 History mg tablet meloxicam 15 mg tablet 15 mg PO QAM 10/31/24 10/31/24 History duloxetine 60 mg capsule,delayed 60 mg PO QPM 11/01/24 11/01/24 History release gabapentin 800 mg tablet 800 mg PO AMPM 11/01/24 11/01/24 History ketoconazole 2 % shampoo 1 applic topical Q3D 11/01/24 11/01/24 History lurasidone 40 mg tablet 40 mg PO QPM 11/01/24 11/01/24 History mometasone 0.1 % topical ointment 1 applic topical QAM 11/01/24 11/01/24 History naproxen 500 mg tablet 1,000 mg PO BID PRN Pain 11/01/24 11/01/24 History Past Med/Surg History Problem List (Updated 11/01/24 @ 18:21 by Rudy Vazquez DO) Osteoarthritis of left knee Complex psychiatric condition Acute kidney injury Ambulatory dysfunction Femoral condyle fracture Effusion, left knee Prolonged QT interval (Acute) Hypokalemia (Acute) Knee pain, left (Acute) Acute pain of left shoulder (Acute) Fall (Acute) Fracture of ramus of left pubis (Acute) Social History Smoking Status: Current every day smoker Tobacco Type: E-cigarettes / Vaping Second Hand Exposure: No; Do You Dip or Chew Tobacco: No; Hx Alcohol Use: Yes Alcohol type: other Hx Substance Use: No Preferred Language: Lao Communication Ability: Effective Waste Removalist Required: No Beliefs That Will Affect Care: None Current Living Situation: Family Other Information That Helps Us Care for You: No Feels Safe at Home: Yes Safety Concerns: Feels Safe At This Time Assistive Devices: None Results & Data Results & Data Vital Signs (Past 12 Hours) Vital Signs Temp Pulse Resp BP Pulse Ox O2 Del Method 11/03/24 07:33 36.3 C L 75 18 165/89 H 92 Room Air Code Status & VTE Plan VTE Prophylaxis Plan VTE Prophylaxis will be ordered: Yes
--- NOTE | 2024-11-03 10:28 | Hospitalist Progress Note ---
Date of Service November 03, 2024 Assessment & Plan (1) Fracture of ramus of left pubis: (2) Effusion, left knee: (3) Femoral condyle fracture: (4) Prolonged QT interval: (5) Hypokalemia: (6) Ambulatory dysfunction: (7) Acute kidney injury: (8) Complex psychiatric condition: Plan Vi is a 54 year old female who presented to the [facility] after experiencing a fall onto her left side where she ended up fracturing her left pubic rami. After the fall she also aggravated her underlying osteoarthritis in her left knee. Fracture of ramus of left pubis: Pelvis CT: Acute mildly comminuted slightly displaced left superior and inferior pubic rami fractures. Severe degeneration of the pubic symphysis. Ortho evaluated patient; conservative treatment with WBAT; explained may take 2- 3 months for recovery. Tramadol increased to 75 mg TID on 11/02 Takes Gabapentin; continue Oxy IR ordered PRN for pain; has utilized FOUR doses over past 24 hours; consider ATC Tylenol to wean off of Oxy IR LBM 11/02: Does not want Miralax; ordered Docusate/Senna PT/OT Chronic OA: Left Knee Effusion: Pelvis CT: Moderate osteoarthritis of the hips without additional acute fracture or dislocation identified. Ortho evaluated patient; conservative treatment with pain control and ice Lidocaine patch ordered 11/03 Takes gabapentin; dose returned to home dose on 11/02 Hypertension Takes amlodipine;continue Depression/Anxiety: Klonopin PRN Takes duloxetine, lurasidone; continue takes dextroamphetamine; was held for prolonged QTc; QTc has resolved; resumed psych meds Monitor QTc every other day ECG; may benefit from outpatient psych with adjustment of medications if contributing to prolonged QTc SOURAV: IMPROVED Creatinine 1.4 on admission; creat 1.00 on 11/02; Do not have baseline labs trend BMP Disposition: PCP: Dr. Brantley Code Status: Full VTE Prophylaxis: Lovenox SQ Goal for [facility] I spent a total of 58 minutes coordinating, documenting, and providing care for this patient excluding time spent inthe performance of separately billed services or time spent by another provider/QHP. Admission and Anticipated Discharge Date Admission Date: November 01, 2024 Subjective Pt lying in her hospital bed. She states that her pain is a 4/10 and mostly in her left knee. She has been in her bedside chair and ambulating and feels that her pain remains the same in her left hip and let knee regardless of what position she is in. Her pain medications were adjusted over the past 24 hours; discussed in depth with her. See A/P for further details. Review of Systems Review of Systems: Neuro: (-) Falls, trauma, slurred speech HEENT: (-) OLIVA, dizziness, dysphagia, visual or auditory changes CV: (-) CP, palpitations, swelling Resp: (-) SOB GI: (-) appetite changes, N/V/D, bowel changes : (-) urinary changes Skin: (-) rashes Musculoskeletal: L>R knee on examination Psych: (-) anxiety, depression Physical Exam Physical Exam: Neuro: AAOx4, PERRLA, no aphagia, memory changes, CNII-XII grossly intact HEENT: head normocephalic, moist mucus membranes CV: S1/S2, (-) M/G/R, (-) edema, cap refill < 3 seconds Resp: Lungs CTA in all ulloa. On RA GI: Abdomen S/NT/ND, Ax4 bowel sounds, (-) CVA tenderness Musculoskeletal: 5/5 B/L UE strength, 5/5 B/L LE strength. L>R knee with suspected effusion Skin: (-) rashes , (-) erythema. Psych: euthymic mood Results & Data Results & Data Vital Signs (Past 12 Hours) Vital Signs Temp Pulse Resp BP Pulse Ox O2 Del Method 11/03/24 07:33 36.3 C L 75 18 165/89 H 92 Room Air
[2024-11-03] MEDS: LIDOCAINE 5% 1 PATCH TD SCH (11:14)
[2024-11-03] MEDS: DOCUSATE SODIUM/SENNA 50/8.6MG TAB PO SCH (11:14)
[2024-11-03 12:29] LABS: BUN Creatinine Ratio 11.4 (10-20); Calcium 9.4 mg/dl (8.6-10.3); Creatinine Clr Calc Pharmacy 67.5 ml/min; Potassium 3.5 mmol/L (3.5-5.1)
[2024-11-03] MEDS: NICOTINE 14 MG/24 HR PATCH TD SCH (16:13)
[2024-11-04] MEDS: LIDOCAINE 5% 1 PATCH TD SCH (12:47)
[2024-11-04] MEDS: LIDOCAINE 5% 1 PATCH TD ONE (13:08)
--- NOTE | 2024-11-04 13:31 | Hospitalist Progress Note ---
<Statement entered by Uvaldo Winkler DO - 11/04/24 15:36> I have seen and examined the patient and have discussed the case with the advance practice provider. I have reviewed the advanced practitioner's documentation, and I agree with, and take responsibility for that plan of care. Patient seen and evaluated, reports that her pain is manageable and significantly improved since admission. Continue to increase activity Persistently disposition options Plan of care as outlined below I spent a total of 12 minutes coordinating, documenting, and providing care for this patient excluding time spent by another provider/QHP. Date of Service November 04, 2024 Assessment & Plan (1) Fracture of ramus of left pubis: (2) Effusion, left knee: (3) Femoral condyle fracture: (4) Prolonged QT interval: (5) Hypokalemia: (6) Ambulatory dysfunction: (7) Acute kidney injury: (8) Complex psychiatric condition: Lovely Lebron is a 54 year old female who presented to the [facility] after experiencing a fall onto her left side where she ended up fracturing her left pubic rami. After the fall she also aggravated her underlying osteoarthritis in her left knee. Fracture of ramus of left pubis: Pelvis CT: Acute mildly comminuted slightly displaced left superior and inferior pubic rami fractures. Severe degeneration of the pubic symphysis. Ortho evaluated patient; conservative treatment with WBAT; explained may take 2- 3 months for recovery. Tramadol increased to 75 mg TID on 11/02 Takes Gabapentin; continue Oxy IR ordered PRN for pain; has utilized THREE doses over past 24 hours; consider ATC Tylenol to wean off of Oxy IR LBM 11/02: Does not want Miralax; ordered Docusate/Senna PT/OT Chronic OA: Left Knee Effusion: Pelvis CT: Moderate osteoarthritis of the hips without additional acute fracture or dislocation identified. Ortho evaluated patient; conservative treatment with pain control and ice Lidocaine patch ordered 11/03; ordered additional Lidocaine patch on 11/[address] on knee Takes gabapentin; dose returned to home dose on 11/02 Hypertension Takes amlodipine;continue Depression/Anxiety: Klonopin PRN Takes duloxetine, lurasidone; continue takes dextroamphetamine; was held for prolonged QTc; QTc has resolved; resumed psych meds Monitor QTc every other day ECG; may benefit from outpatient psych with adjustment of medications if contributing to prolonged QTc SOURAV: IMPROVED Creatinine 1.4 on admission; creat 1.14 on 11/03 trend BMP Disposition: PCP: Dr. Brantley Code Status: Full VTE Prophylaxis: Lovenox SQ Goal for [facility]. See above for [facility] details. I spent a total of 54 minutes coordinating, documenting, and providing care for this patient excluding time spent inthe performance of separately billed services or time spent by another provider/QHP. Admission and Anticipated Discharge Date Admission Date: November 01, 2024 Subjective Pt sitting at the side of her bed today when I went to see her. She states that her pain is improved today and the Lidoderm patch has been helping. She has requested an additional Lidoderm patch for her knee. She has been ambulating with her walker around the room. I observed her stand up as well without difficulty. She has utilized THREE doses of Oxy IR over past 24 hours. I called [facility] @ [phone] and spoke with Ilda, one of the staff members. I confirmed the followin. There are 14 steps for individual to get down to the dining area. Dinner could be brought to her if needed. 2. There is an elevator that she can use as well. 3. If narcotics are prescribed, she can bring them with her. Staff usually does hold on to these and distribute as needed for safety. 4. Ilda will check if PT services could visit Ericka at [facility]. He will check with Heber the Breaker Layer. I provided my contact for further information. Relayed to Pet Training Instructor. See A/P for further details. Review of Systems Review of Systems: Neuro: (-) Falls, trauma, slurred speech HEENT: (-) OLIVA, dizziness, dysphagia, visual or auditory changes CV: (-) CP, palpitations, swelling Resp: (-) SOB GI: (-) appetite changes, N/V/D, bowel changes : (-) urinary changes Skin: (-) rashes Musculoskeletal: L>R knee on examination Psych: (-) anxiety, depression Physical Exam Physical Exam: Neuro: AAOx4, PERRLA, no aphagia, memory changes, CNII-XII grossly intact HEENT: head normocephalic, moist mucus membranes CV: S1/S2, (-) M/G/R, (-) edema, cap refill < 3 seconds Resp: Lungs CTA in all ulloa. On RA GI: Abdomen S/NT/ND, Ax4 bowel sounds, (-) CVA tenderness Musculoskeletal: 5/5 B/L UE strength, 5/5 B/L LE strength. L>R knee with suspected effusion Skin: (-) rashes , (-) erythema. Psych: euthymic mood Results & Data Results & Data Vital Signs (Past 12 Hours) Vital Signs Temp Pulse Resp BP Pulse Ox O2 Del Method 11/04/24 07:55 36.9 C 83 18 129/77 94 Room Air
--- NOTE | 2024-11-05 07:30 | Hospitalist Progress Note ---
Date of Service November 05, 2024 Assessment & Plan (1) Fracture of ramus of left pubis: (2) Effusion, left knee: (3) Femoral condyle fracture: (4) Prolonged QT interval: (5) Hypokalemia: (6) Ambulatory dysfunction: (7) Acute kidney injury: (8) Complex psychiatric condition: Lovely Lebron is a 54 year old female who presented to the [facility] after experiencing a fall onto her left side where she ended up fracturing her left pubic rami. After the fall she also aggravated her underlying osteoarthritis in her left knee. Fracture of ramus of left pubis: Pelvis CT: Acute mildly comminuted slightly displaced left superior and inferior pubic rami fractures. Severe degeneration of the pubic symphysis. Ortho evaluated patient; conservative treatment with WBAT; explained may take 2- 3 months for recovery. Tramadol increased to 75 mg TID on 11/02 Takes Gabapentin; continue Oxy IR ordered PRN for pain; has utilized FOUR doses over past 24 hours; consider ATC Tylenol to wean off of Oxy IR LBM 11/02: Does not want Miralax; ordered Docusate/Senna PT/OT Chronic OA: Left Knee Effusion: Pelvis CT: Moderate osteoarthritis of the hips without additional acute fracture or dislocation identified. Ortho evaluated patient; conservative treatment with pain control and ice Lidocaine patch x2 ordered Takes gabapentin; dose returned to home dose on 11/02 Hypertension Takes amlodipine;continue Depression/Anxiety: Klonopin PRN Takes duloxetine, lurasidone; continue takes dextroamphetamine; was held for prolonged QTc; QTc has resolved; resumed psych meds Monitor QTc every other day ECG; may benefit from outpatient psych with adjustment of medications if contributing to prolonged QTc SOURAV: IMPROVED Creatinine 1.4 on admission; creat 1.14 on 11/03 trend BMP Disposition: PCP: Dr. Brantley Code Status: Full VTE Prophylaxis: Lovenox SQ Goal for [facility]. See below for [facility] details. 11/04/24: I called [facility] @ [phone] and spoke with Ilda, one of the staff members. I confirmed the followin. There are 14 steps for individual to get down to the dining area. Dinner could be brought to her if needed. 2. There is an elevator that she can use as well. 3. If narcotics are prescribed, she can bring them with her. Staff usually does hold on to these and distribute as needed for safety. 4. Ilda will check if PT services could visit Ericka at [facility]. He will check with Heber the Roller Cleaner. I provided my contact for further information. Relayed to Mixed Animal Veterinarian. I spent a total of 51 minutes coordinating, documenting, and providing care for this patient excluding time spent inthe performance of separately billed services or time spent by another provider/QHP. Admission and Anticipated Discharge Date Admission Date: November 01, 2024 Subjective Pt sitting at the side of her bed today when I went to see her. She states that her pain is improved today and the Lidoderm patch that she has added to her pelv is has helped. She has been ambulating with her walker around the room. I observed her stand up as well without difficulty. She has utilized FOUR doses of Oxy IR over past 24 hours. See A/P for further details. Review of Systems Review of Systems: Neuro: (-) Falls, trauma, slurred speech HEENT: (-) OLIVA, dizziness, dysphagia, visual or auditory changes CV: (-) CP, palpitations, swelling Resp: (-) SOB GI: (-) appetite changes, N/V/D, bowel changes : (-) urinary changes Skin: (-) rashes Musculoskeletal: L>R knee on examination Psych: (-) anxiety, depression Physical Exam Physical Exam: Neuro: AAOx4, PERRLA, no aphagia, memory changes, CNII-XII grossly intact HEENT: head normocephalic, moist mucus membranes CV: S1/S2, (-) M/G/R, (-) edema, cap refill < 3 seconds Resp: Lungs CTA in all ulloa. On RA GI: Abdomen S/NT/ND, Ax4 bowel sounds, (-) CVA tenderness Musculoskeletal: 5/5 B/L UE strength, 5/5 B/L LE strength. L>R knee with suspected effusion Skin: (-) rashes , (-) erythema. Psych: euthymic mood Results & Data Results & Data Vital Signs (Past 12 Hours) Vital Signs Temp Pulse Resp BP BP Pulse Ox O2 Del Method 11/05/24 07:00 36.6 C 74 20 156/81 H 90 Room Air 11/04/24 19:39 37.0 C 77 18 136/79 95 Room Air
[2024-11-05] MEDS: LIDOCAINE 5% 1 PATCH TD SCH (09:05)
--- NOTE | 2024-11-05 13:28 | Electrocardiogram Report ---
Test Reason : Blood Pressure : */* mmHG Vent. Rate : 80 BPM Atrial Rate : 80 BPM P-R Int : 144 ms QRS Dur : 80 ms QT Int : 438 ms P-R-T Axes : 49 18 75 degrees QTcB Int : 505 ms Normal sinus rhythm Prolonged QT Abnormal ECG When compared with ECG of 01-Nov-2024 06:39, No significant change was found Confirmed by Yobani Mancini ([id number]) on 11/05/2024 1:28:52 PM Referred By: REFERRED SELF Confirmed By: Yobani Mancini
[2024-11-05] MEDS: HYDROCORTISONE 1% OINT 30 GM TUBE EXT PRN (17:23)
[2024-11-06 07:12] LABS: Hematocrit (blood only) 37.2 % (37.0-47.0); Hemoglobin 12.3 g/dl (12.0-16.0); Mean Corpuscular Hemoglobin 28.1 pg (25.0-34.0); Mean Corpuscular Hgb Conc 33.1 g/dL (32.0-36.0); Mean Corpuscular Volume 84.9 fL (80.0-100.0); Mean Platelet Volume 9.7 fL (9.4-12.4); Platelet Count 265 K/uL (130-400); RDW Coefficient of Variation 13.2 % (11.5-14.5); RDW Standard Deviation 40.8 fL (36.4-46.3); Red Blood Count 4.38 M/uL (4.20-5.40); White Blood Count 7.26 K/ul (4.8-10.8)
[2024-11-06 07:25] LABS: BUN Creatinine Ratio 24.5 (10-20); Creatinine Clr Calc Pharmacy 69.9 ml/min; Potassium 3.7 mmol/L (3.5-5.1)
--- NOTE | 2024-11-06 12:06 | Hospitalist Progress Note ---
<Statement entered by Uvaldo Winkler DO - 11/06/24 13:49> I have seen and examined the patient and have discussed the case with the advance practice provider. I have reviewed the advanced practitioner's documentation, and I agree with, and take responsibility for that plan of care. Patient's pain definitely much better controlled, mobility improved. Sitting upright in bed and moving much easier. Discussed plan of care as outlined below, continue to coordinate disposition plans I spent a total of 8 minutes coordinating, documenting, and providing care for this patient excluding time spent by another provider/QHP. Date of Service November 06, 2024 Assessment & Plan (1) Fall: (2) Fracture of ramus of left pubis: Plan: Ericka Proctor is a 54y/o F with PMHx significant for HTN, HLD, psoriasis, L knee effusion, generalized osteoarthritis, chronic midline low back pain without sciatica, depression, JERONIMO and ADHD who presented to the ED via EMS on 10/31/2024 with c/o L hip pain after sustaining a fall and was found to have acute mildly comminuted slightly displaced left superior and inferior pubic rami fractures. Appreciate orthopedic surgery consult. Continue conservative management with WBAT; explained that it can take several months to heal/recover. Tramadol dose increased to 75mg TID on 11/02. Continue gabapentin. Oxycodone IR ordered PRN for pain control >> she has used 4 doses in the past 24hrs. Will change PRN Tylenol to scheduled 1g po Tylenol Q8H with intention of weaning down/limiting narcotic use. Continue PT/OT. Need to determine if patient is able to be accepted for SNF placement vs return back to [facility] with PT services. Patient inquiring about wheelchair use only PRN for mobility/transportation if unable to secure SNF placement - script completed for CM. (3) Effusion of left knee joint: Plan: Large L knee joint effusion noted on both XR and CT imaging. Patient c/o bothersome L knee pain this morning. Patient reports she has experienced L knee joint effusions in the past which have required drainage. Per outpatient chart review, patient follows with [facility] and most recently had a L knee joint effusion drained on 09/28/2024 - this was performed by Willie Coburn PA-C at [facility]. Patient mentions difficulty with making outpatient follow-up appointments due to her current living scenario, available resources and financial constraints. TT sent to Dr. Vazquez to discuss possibility of having her L knee joint effusion drained while she is inpatient >> no indication to drain the effusion at this time. Encouraged to continue ambulation as well as lidocaine patch and heat/ice application. Continue gabapentin. (4) Acute kidney injury: Plan: Cr 1.46 on admission >> SOURAV now resolved and Cr remains stable s/p IVF resuscitation. Avoid nephrotoxic agents when able and continue to monitor renal function closely with daily labs. (5) Prolonged QT interval: (6) Anxiety and depression: (7) ADHD (attention deficit hyperactivity disorder): Plan: QTc initially 638ms on admitting EKG >> now improved but still prolonged at 505ms on repeat EKG done 11/05. Mood remains stable on current psychiatric medication regimen. Will continue PRN Klonopin, Cymbalta, Latuda and dextroamphetamine-amphetamine for now. Repeat EKG tomorrow to reassess QTc. If not stable or improving, will need to consider holding or reducing her dose of dextroamphetamine-amphetamine. Could also reach out to the on-call psychiatrist here at [facility] to discuss need for any medication changes. Other Chronic Medical Conditions: HTN - BP remains stable. Continue amlodipine. DVT Prophylaxis: SQ Lovenox Code Status: FULL CODE PCP: Christi Brantley MD Disposition: Possible d/c to [facility] if SNF auth approved by her insurance. Patient currently living at a local prison - [facility]. Prior MINNA on service was in contact with Ilda, one of the staff members from [facility], on 11/04 and confirmed the followin. There are 14 steps for individual to get down to the dining area. Dinner could be brought to her if needed. There is an elevator that she can use as well. 2. If narcotics are prescribed, she can bring them with her. Staff usually does hold on to these in a lock box and distributes them only as needed for safety. [place] back from seo executive today. She can receive HH PT services at the prison as long as she can still follow the day-to-day tasks. Patient seen in collaboration with Dr. Winkler. Please see addendum. I spent a total of 45 minutes coordinating, documenting, and providing care for this patient excluding time spent in the performance of separately billed services or time spent by another provider/QHP. This included personally reviewing all current laboratories and imaging studies, medical reconciliation, outpatient chart review and discussion with specialists. This chart was completed in part utilizing Speech Voice Recognition Software. Grammatical errors, random word insertions, pronoun errors, and incomplete sentences are an occasional consequence of this system due to software limitations, ambient noise, and hardware issues. Any formal questions or concerns about the content, text, or information contained within the body of this dictation should be directly addressed to the provider for clarification. Admission and Anticipated Discharge Date Admission Date: November 01, 2024 Subjective Patient seen and examined in room N378-2. NAEO. She is sitting up in bed this morning. Endorses L hip and L knee pain but reports she received PRN pain medication shortly before I entered the room. Mentions that she did not sleep well overnight due to pain. She has been ambulating around the room with a walker; requesting to obtain a wheelchair if not able to obtain rehab placement - script completed. Notable large L knee joint effusion on exam and prior imaging this admission - patient reports she has experienced this in the past and has previously required drainage. Per outpatient chart review, patient follows with [facility] as an outpatient and most recently had a L knee joint effusion drained on 09/28/2024 - this was performed by Wlilie Coburn PA-C at [facility]. TT sent to Dr. Vazquez to discuss possibility of having her L knee joint effusion drained while she is inpatient. Patient mentions difficulty with making outpatient follow-up appointments due to her current living scenario, available resources and financial constraints. No erythema surrounding L knee. TTP of L knee and L hip region. Denies any fevers or chills. VS remain stable overall. Denies any N/V/D but feels her appetite has been subsiding due to pain. Reports feeling tired however she remains compliant and cooperative with therapy. Has obvious L wrist deformity which she reports is from a prior fall she sustained last year which resulted in a L wrist fracture - ? unsure if this was surgically repaired. Denies any pain in her L wrist at this time. Do not see any prior documentation regarding this in her outpatient records. Patient was previo usly living in [place] when this occurred. She moved to [place] a little over a year ago and is currently living in a local prison - [facility]. Reports she uses the [facility] van for transportation to appointments. Encouraged her to use ice on her L knee to hopefully provide her with some additional pain relief. She has used 2 doses of 15mg po oxycodone IR so far today. Review of Systems Review of Systems: At least ten systems reviewed and negative, except as noted in the subjective se ction. Physical Exam Physical Exam: General: Obese, middle-aged F. NAD. Sitting up in bed. Pleasant, conversing appropriately. A+Ox3. HEENT: Normocephalic, atraumatic. Conjunctivae normal. External ear and nose normal. Moist mucous membranes. Respiratory: Normal respiratory effort, lungs clear to auscultation bilaterally. No accessory muscle use. Cardiovascular: Regular rate and rhythm. Normal peripheral pulses, no BLE edema. Abdomen/GI: Normal bowel sounds, soft. Nondistended, nontender to palpation in all quadrants. Extremities/Musculoskeletal: No cyanosis or clubbing. Actively moves all extremities. + L knee joint swelling/effusion. Neurologic: No overt focal deficits. CN's II-XI not formally tested but appear grossly intact bilaterally. Results & Data Results & Data Vital Signs (Past 12 Hours) Vital Signs Temp Pulse Resp BP Pulse Ox O2 Del Method 11/06/24 07:32 36.9 C 76 18 147/86 H 92 Room Air Laboratory Results Short CBC 11/06/24 Range/Units 05:42 WBC 7.26 (4.8-10.8) K/ul Hgb 12.3 (12.0-16.0) g/dl Hct 37.2 (37.0-47.0) % Plt Count 265 (130-400) K/uL BMP 11/06/24 05:42 Sodium 139 Potassium 3.7 Chloride 101 Carbon Dioxide 32 BUN 27 H Creatinine 1.10 Glucose 86 Calcium 9.0 (1) Fall Encounter type: initial encounter Qualified Code(s): W19.XXXA - Unspecified fall, initial encounter (2) Fracture of ramus of left pubis Encounter type: initial encounter Fracture type: closed Qualified Code(s): S32.592A - Other specified fracture of left pubis, initial encounter for closed fracture (7) ADHD (attention deficit hyperactivity disorder) Attention deficit-hyperactivity disorder type: unspecified Qualified Code(s): F90.9 - Attention-deficit hyperactivity disorder, unspecified type
[2024-11-06] MEDS: ACETAMINOPHEN 500 MG TAB PO SCH (13:03)
[2024-11-07 06:15] LABS: Hematocrit (blood only) 39.1 % (37.0-47.0); Hemoglobin 12.9 g/dl (12.0-16.0); Mean Corpuscular Hemoglobin 28.2 pg (25.0-34.0); Mean Corpuscular Volume 85.6 fL (80.0-100.0); Mean Platelet Volume 9.6 fL (9.4-12.4); Platelet Count 293 K/uL (130-400); RDW Coefficient of Variation 13.5 % (11.5-14.5); RDW Standard Deviation 41.9 fL (36.4-46.3); Red Blood Count 4.57 M/uL (4.20-5.40); White Blood Count 6.53 K/ul (4.8-10.8)
[2024-11-07 06:24] LABS: BUN Creatinine Ratio 24.1 (10-20); Calcium 9.4 mg/dl (8.6-10.3); Creatinine Clr Calc Pharmacy 71.2 ml/min; Magnesium 2.2 mg/dl (1.7-2.4); Potassium 3.9 mmol/L (3.5-5.1)
--- NOTE | 2024-11-07 13:15 | Hospitalist Progress Note ---
<Statement entered by Uvaldo Wiknler DO - 11/07/24 15:21> I have seen and examined the patient and have discussed the case with the advance practice provider. I have reviewed the advanced practitioner's documentation, and I agree with, and take responsibility for that plan of care. Patient understanding that may need to return to alf and get physical therapy there. Reviewed case management notes, [facility] that [facility]. Patient is already scheduled transportation to alf tomorrow Wheelchair and assistive devices ordered for the patient will be delivered to the hospital. Continue pain management Further plan of care as outlined below I spent a total of 12 minutes coordinating, documenting, and providing care for this patient excluding time spent by another provider/QHP. Date of Service November 07, 2024 Assessment & Plan (1) Fall: (2) Fracture of ramus of left pubis: Plan: Ericka Proctor is a 54y/o F with PMHx significant for HTN, HLD, psoriasis, L knee effusion, generalized osteoarthritis, chronic midline low back pain without sciatica, depression, JERONIMO and ADHD who presented to the ED via EMS on 10/31/2024 with c/o L hip pain after sustaining a fall and was found to have acute mildly comminuted slightly displaced left superior and inferior pubic rami fractures. Appreciate orthopedic surgery consult. Continue conservative management with WBAT; explained that it can take several months to heal/recover. Encouraged her to continue participating with PT/OT. Ultram dose increased to 75mg TID on 11/02; Appears more drowsy today >> will decrease Ultram to BID dosing today and mon itor her response. Continue gabapentin. Roxicodone IR ordered PRN for pain control - has used 4 doses in the past about 24 hrs. PRN Tylenol changed to scheduled 1g po Tylenol Q8H with intention of weaning down/limiting narcotic use on 11/07. Continue PT/OT. Need to determine if patient is able to be accepted for SNF placement vs return back to [facility] with PT services. Patient inquiring about wheelchair use only PRN for mobility/transportation if unable to secure SNF placement - script completed for CM. (3) Effusion of left knee joint: Plan: Large L knee joint effusion noted on both XR and CT imaging. Patient reports she has experienced L knee joint effusions in the past which have required drainage. Per outpatient chart review, patient follows with [facility] and most recently had a L knee joint effusion drained on 09/28/2024 - this was performed by Willie Coburn PA-C at [facility]. Patient mentions difficulty with making outpatient follow-up appointments due to her current living scenario, available resources and financial constraints. TT sent to Dr. Vazquez on 11/06 to discuss possibility of having her L knee joint effusion drained while she is inpatient >> no indication to drain the effusion at this time. Patient with rather persistent L knee pain; Encouraged to continue with ambulation as well as lidocaine patch application and heat/ice application. Continue gabapentin; also ordered Voltaren gel. (4) Acute kidney injury: Plan: Cr 1.46 on admission >> SOURAV now resolved and Cr remains stable s/p IVF resuscitation. Avoid nephrotoxic agents when able and continue to monitor renal function closely with daily labs. (5) Prolonged QT interval: (6) Anxiety and depression: (7) ADHD (attention deficit hyperactivity disorder): Plan: QTc initially 638ms on admitting EKG >> now improved but still prolonged at 476ms on repeat EKG today. Mood remains stable on current psychiatric medication regimen. Will continue PRN Klonopin, Cymbalta, Latuda and dextroamphetamine-amphetamine for now. Monitor QTc every other day on repeat EKGs; If not remaining stable or improving, will need to consider holding or reducing her dose of dextroamphetamine-amphetamine. Could also reach out to the on-call psychiatrist here at [facility] to discuss need for any medication changes. Other Chronic Medical Conditions: HTN - BP remains stable. Continue amlodipine. DVT Prophylaxis: SQ Lovenox Code Status: FULL CODE PCP: Christi Brantley MD Disposition: Possible d/c to [facility] if SNF auth approved by her insurance. Patient currently living at a local alf - [facility]. Prior MINNA on service was in contact with Ilda, one of the staff members from [facility], on 11/04 and confirmed the followin. There are 14 steps for individual to get down to the dining area. Dinner could be brought to her if needed. There is an elevator that she can use as well. 2. If narcotics are prescribed, she can bring them with her. Staff usually does hold on to these in a lock box and distributes them only as needed for safety. [place] back from human resources executive assistant on 11/06. She can receive HH PT services at the alf as long as she can still follow the day-to-day tasks. Patient seen in collaboration with Dr. Winkler. Please see addendum. I spent a total of 35 minutes coordinating, documenting, and providing care for this patient excluding time spent in the performance of separately billed services or time spent by another provider/QHP. This included personally reviewing all current laboratories and imaging studies, medical reconciliation, outpatient chart review and discussion with specialists. This chart was completed in part utilizing Speech Voice Recognition Software. Grammatical errors, random word insertions, pronoun errors, and incomplete sentences are an occasional consequence of this system due to software limitations, ambient noise, and hardware issues. Any formal questions or concerns about the content, text, or information contained within the body of this dictation should be directly addressed to the provider for clarification. Admission and Anticipated Discharge Date Admission Date: November 01, 2024 Subjective Patient seen and examined in room N378-2. NAEO. She was asleep when I entered the room but easily arousable with verbal stimuli. Endorses ongoing pain in her L hip and L knee. Had 1 dose of Roxicodone IR 15mg overnight. Also on Ultram 75mg TID. Mentions she slept better overnight. States she is quite tired this morning. Encouraged her to continue participating with PT and OT. Review of Systems Review of Systems: At least ten systems reviewed and negative, except as noted in the subjective section. Physical Exam Physical Exam: General: Obese, middle-aged F. NAD. Laying down in bed. Sleepy but easily arousable with verbal stimuli. A+Ox3 to conversation. HEENT: Normocephalic, atraumatic. Conjunctivae normal. External ear and nose normal. Moist mucous membranes. Respiratory: Normal respiratory effort, lungs clear to auscultation bilaterally. No accessory muscle use. Cardiovascular: Regular rate and rhythm. Normal peripheral pulses, no BLE edema. Abdomen/GI: Normal bowel sounds, soft. Nondistended, nontender to palpation in all quadrants. Extremities/Musculoskeletal: No cyanosis or clubbing. Actively moves all extremities. + L knee joint swelling/effusion. Neurologic: No overt focal deficits. CN's II-XI not formally tested but appear grossly intact bilaterally. Results & Data Results & Data Vital Signs (Past 12 Hours) Vital Signs Temp Pulse Resp BP Pulse Ox O2 Del Method 11/07/24 07:46 168/92 H 11/07/24 07:25 36.3 C L 65 18 193/85 H 93 Room Air Laboratory Results Short CBC 11/07/24 Range/Units 05:37 WBC 6.53 (4.8-10.8) K/ul Hgb 12.9 (12.0-16.0) g/dl Hct 39.1 (37.0-47.0) % Plt Count 293 (130-400) K/uL BMP 11/07/24 05:37 Sodium 142 Potassium 3.9 Chloride 102 Carbon Dioxide 33 H BUN 26 H Creatinine 1.08 Glucose 95 Calcium 9.4 (1) Fall Encounter type: initial encounter Qualified Code(s): W19.XXXA - Unspecified fall, initial encounter (2) Fracture of ramus of left pubis Encounter type: initial encounter Fracture type: closed Qualified Code(s): S32.592A - Other specified fracture of left pubis, initial encounter for closed fracture (7) ADHD (attention deficit hyperactivity disorder) Attention deficit-hyperactivity disorder type: unspecified Qualified Code(s): F90.9 - Attention-deficit hyperactivity disorder, unspecified type
[2024-11-07] MEDS: DICLOFENAC SOD 1% GEL 100 GM TUBE EXT SCH (15:22)
[2024-11-07] MEDS: traMADol HCL 50 MG TABLET PO SCH (20:57)
--- NOTE | 2024-11-07 21:52 | Electrocardiogram Report ---
Test Reason : Blood Pressure : */* mmHG Vent. Rate : 64 BPM Atrial Rate : 64 BPM P-R Int : 156 ms QRS Dur : 86 ms QT Int : 462 ms P-R-T Axes : 46 11 91 degrees QTcB Int : 476 ms Normal sinus rhythm Nonspecific ST and T wave abnormality Abnormal ECG When compared with ECG of 05-Nov-2024 11:18, QT has shortened Confirmed by Yobani Mancini ([id number]) on 11/07/2024 9:51:42 PM Referred By: REFERRED SELF Confirmed By: Yobani Mancini
[2024-11-08 07:49] LABS: Hematocrit (blood only) 40.1 % (37.0-47.0); Hemoglobin 13.1 g/dl (12.0-16.0); Mean Corpuscular Hemoglobin 28.3 pg (25.0-34.0); Mean Corpuscular Hgb Conc 32.7 g/dL (32.0-36.0); Mean Corpuscular Volume 86.6 fL (80.0-100.0); Mean Platelet Volume 10.5 fL (9.4-12.4); Platelet Count 267 K/uL (130-400); RDW Coefficient of Variation 13.3 % (11.5-14.5); RDW Standard Deviation 41.1 fL (36.4-46.3); Red Blood Count 4.63 M/uL (4.20-5.40); White Blood Count 6.48 K/ul (4.8-10.8)
[2024-11-08 07:52] VITALS: RESP 20; TEMP 97.9; O2SAT 99
[2024-11-08 08:11] LABS: Calcium 9.3 mg/dl (8.6-10.3); Magnesium 2.1 mg/dl (1.7-2.4); Potassium 3.6 mmol/L (3.5-5.1)
[2024-11-08 08:17] LABS: Creatinine Clr Calc Pharmacy 76.9 ml/min
[2024-11-08 09:40] VITALS: BP 126/72; PULSE 79
[2024-11-08] MEDS: oxyCODONE IR HOME PACK PO ONE (10:00)
--- NOTE | 2024-11-08 10:00 | Discharge Summary ---
Discharge Summary Date of Service November 08, 2024 Principal Dx & Hospital Course #1 = Principal Diagnosis (1) Fall: (2) Fracture of ramus of left pubis: Ericka Proctor is a 54y/o F with PMHx significant for HTN, HLD, psoriasis, L knee effusion, generalized osteoarthritis, chronic midline low back pain without sciatica, depression, JERONIMO and ADHD who presented to the ED via EMS on 10/31/2024 with complaint of L hip pain after sustaining a fall and was found to have acute mildly comminuted slightly displaced left superior and inferior pubic rami fractures. Appreciate orthopedic surgery consult. Continue conservative management with WBAT; explained that it can take several months to heal/recover. PT services arranged through [facility] to be done at her living [facility], [facility]. Oxycodone IR ordered only PRN for moderate-severe pain on discharge with down titration scheduling; provided with oxycodone IR home pack for the meantime as she cannot get to her pharmacy until at least tomorrow. Continue gabapentin and PRN Tylenol. Patient provided with a wheelchair for mobility/transportation use. Outpatient follow-up to be arranged through [facility] orth[facility], whom patient already follows with, as Dr. Vazquez's office does not accept her insurance. (3) Effusion of left knee joint: Large left knee joint effusion noted on both XR and CT imaging. Patient reports she has experienced L knee joint effusions in the past which have required drainage. Per outpatient chart review, patient follows with [facility] and most recently had a L knee joint effusion drained on 09/28/2024 - this was performed by Willie Coburn PA-C at [facility]. Patient mentions difficulty with making outpatient follow-up appointments due to her current living scenario, available resources and financial constraints. TT sent to Dr. Vazquez on 11/06 to discuss possibility of having her L knee joint effusion drained while she is inpatient - no indication to drain the effusion. Encouraged her to continue with ambulation as well as lidocaine patch application and heat/ice application. Continue gabapentin as well as PRN Voltaren gel application. Can address this at her follow-up appointment with [facility] as well to determine potential need for outpatient drainage of her effusion - patient expresses understanding with this plan. (4) Acute kidney injury: Cr 1.46 on admission. SOURAV now resolved and Cr remains stable s/p IVF resuscitation. (5) Prolonged QT interval: (6) Anxiety and depression: (7) ADHD (attention deficit hyperactivity disorder): QTc initially 638ms on admitting EKG. QTc now improved but still prolonged at 476ms on repeat EKG done on 11/07. Mood remains stable on current psychiatric medication regimen. Will continue PRN Klonopin, Cymbalta, Latuda and dextroamphetamine-amphetamine on discharge. Repeat EKG at PCP follow-up appointment to monitor QTc prolongation. If not remaining stable or improving, will need to consider psychiatric medication adjustments - discussed in depth with the patient and she expresses understanding. Other Chronic Medical Conditions: HTN - BP remained stable. Continue amlodipine. PCP: Christi Brantley MD Disposition: Patient is being discharged back to a local usp, [facility], in stable condition with [facility] PT services and close outpatient follow- up with both her PCP plus orthopedic surgery. Discussed discharge instructions and recommendations in great detail with the patient at bedside - she expressed understanding. Patient seen in collaboration with Dr. Pinto. Please see addendum. I spent a total of 50 minutes coordinating, documenting, and providing care for this patient excluding time spent in the performance of separately billed services or time spent by another provider/QHP. This included personally reviewing all current laboratories and imaging studies, medical reconciliation, outpatient chart review and discussion with specialists. This chart was completed in part utilizing Speech Voice Recognition Software. Grammatical errors, random word insertions, pronoun errors, and incomplete sentences are an occasional consequence of this system due to software limitations, ambient noise, and hardware issues. Any formal questions or concerns about the content, text, or information contained within the body of this dictation should be directly addressed to the provider for clarification. Notes For Next Care Provider Will need [facility] orthopedic surgery follow-up appointment within the next 1-2 weeks. Medication Changes From Visit Oxycodone IR 10mg Q6H PRN for moderate-severe pain Admission HPI Per Admitting Provider 54-year-old female with past med history significant for hypertension, back pain, knee pain, history of SOURAV secondary to naproxen use, history of anxiety and depression and follows with psychiatrist at [place] presents with fall and found to have left pubic rami fracture. Patient says she has a lot of left knee pain. When she was trying to move,her left knee gave away and she fell on the left hip. Did not hit her head. No loss of consciousness. Has a lot of pain in left hip region. Denies any headache. No runny nose or sore throat. No cough. No chest pain or shortness of breath. Afebrile. No nausea. No abdominal pain. Normal bowel and bladder movements. Hemodynamics are okay. Past medical history. As mentioned above. Past surgical history. Back surgeries. Cholecystectomy. Social history. Vapes. Denies alcohol use. Family history. Mother had diabetes and heart disease. Admission Exam Per Admitting Provider General-Not in acute distress Head- atraumatic Eyes- PERRL. ENT- oropharynx clear Neck- supple, no JVD. Lungs- clear to auscultation no wheezing or crackles Heart- regular rate and rhythm; no murmur, no gallop. Abdomen- normal bowel sounds, soft, nontender, no distension Extremities- no pretibial edema, no erythema seen Neuro- alert, oriented PERRL, no facial palsy; no dysarthria. Discharge Exam General: Obese, middle-aged F. NAD. Sitting up in bed. Pleasant, conversing appropriately. A+Ox3. HEENT: Normocephalic, atraumatic. Conjunctivae normal. External ear and nose normal. Moist mucous membranes. Respiratory: Normal respiratory effort, lungs clear to auscultation bilaterally. No accessory muscle use. Cardiovascular: Regular rate and rhythm. Normal peripheral pulses, no BLE edema. Abdomen/GI: Normal bowel sounds, soft. Nondistended, nontender to palpation in all quadrants. Extremities/Musculoskeletal: No cyanosis or clubbing. Actively moves all extremities. + L knee joint swelling/effusion. Neurologic: No overt focal deficits. CN's II-XI not formally tested but appear grossly intact bilaterally. Updated Medication List Medication Instructions Recorded Confirmed Type amlodipine 5 mg tablet 5 mg PO QAM 10/31/24 10/31/24 History clonazepam 1 mg tablet 1 mg PO BID PRN Anxiety 10/31/24 10/31/24 History dextroamphetamine-amphetamine 20 20 mg PO BID 10/31/24 11/01/24 History mg tablet duloxetine 60 mg capsule,delayed 60 mg PO QPM 11/01/24 11/01/24 History release gabapentin 800 mg tablet 800 mg PO AMPM 11/01/24 11/01/24 History ketoconazole 2 % shampoo 1 applic topical Q3D 11/01/24 11/01/24 History lurasidone 40 mg tablet 40 mg PO QPM 11/01/24 11/01/24 History mometasone 0.1 % topical ointment 1 applic topical QAM 11/01/24 11/01/24 History naproxen 500 mg tablet 1,000 mg PO BID PRN Pain 11/01/24 11/01/24 History diclofenac sodium 1 % topical gel 4 g EXT TID #100 grams 11/08/24 Rx (Voltaren Arthritis Pain) meloxicam 15 mg tablet 15 mg PO QAM PRN Pain #0 tabs 11/08/24 10/31/24 Rx oxycodone 5 mg tablet 10 mg (2 x 5 mg) PO Q6H PRN 11/08/24 Rx Moderate-Severe Pain #30 tabs Hospital Stay Data Consultations 10/31/24 22:59 ED Decision to Admit Stat 11/01/24 07:19 Consult Orthopedic Surgery Routine Diagnostic Imagining Performed 11/01/24 09:27 CT knee LT wo con Routine CT pelvis wo con Routine Pending Results Patient Have Any Pending Studies at Discharge: No Discharge Instructions Given to Patient (Per Discharging Provider) Ms. Proctor, christiano were admitted to [facility] after sustaining a fall and found to have fractures of your left superior and inferior pubic rami. A pubic rami fracture refers to a break in one of the bones that make up the pelvic ring, specifically in the pubic ramus. The pubic ramus is a part of the pubic bone, which is located at the front of the pelvis. Most pubic rami fractures heal within 6-8 weeks with proper care. Some people may need longer to fully recover. You were also found to have a left knee joint effusion, which is when there is accumulation of excess fluid within the knee joint. After a fall, this can occur due to injury, inflammation or trauma to the knee. Essentially, your body's response to the injury is to release fluid into the joint as part of the healing process. You were seen and evaluated by an orthopedic surgeon, Dr. Rudy Vazquez, whom recommended conservative management with weightbearing activity as tolerated and as needed pain control. You have been arranged to see home health physical therapy services through [facility]. Medication Changes/Recommendations: Oxycodone 10mg every 6 hours only NEEDED for MODERATE-SEVERE pain. You have been provided with a home pack of this medication to take home until you can picker and packer your full prescription at [facility] on [address] [facility] in [place], [place]. For the home pack, take 1 tablet every 4 hours only NEEDED for MODERATE-SEVERE pain. Please also continue to utilize lidocaine patches to help better control the pain in your left hip like we had discussed. It is also recommended that you continue using the topical Voltaren (diclofenac) gel on your left knee only NEEDED for better pain control. Giving your knee time to heal by resting it and elevating it can help reduce swelling. Applying ice packs to your knee can reduce inflammation and numb any discomfort as well. Opioids, such as oxycodone, are known to cause constipation. Make sure you are increasing your fiber intake as well as your fluid intake in order to prevent constipation. You can also utilize stool softeners, such as Colace, or laxatives, such as MiraLAX, to stimulate bowel movements. Recommendations for Follow-Up Please attend your PCP follow-up appointment as outlined below. Date & Time: 11/14/2024 @ 12:40 PM Provider: Christi Brantley MD Location: [facility] Please call your [facility] office to schedule a follow-up appointment within the next 1-2 weeks. Seek medical attention if you have: * temperature above 101F * chest pain or trouble breathing * abdominal pain, nausea, vomiting * diarrhea, dark stools or bloody stools * any unanswered questions or concerns Call 911 if symptoms are severe. Please take good care of yourself! It has been a pleasure taking care of you. If you have any questions regarding your recent hospitalization please contact [facility] and request [facility] Hospital[facility] @ [phone]. Total Time Total Time Spent Total Time Spent (In Minutes): 50 Supervising Physician Co-Signing Physician Notes Admitted for pubic rami fracture and knee effusion, limiting mobility. Discharged to usp with rehab, pain medications as treatment for pain and fracture/effusion. I have seen and discussed the case with the collaborating advanced practitioner. I agree with the above H&P. I have reviewed and confirmed the patients medical history, the findings on physical examination, and the patients diagnosis and treatment plan with Virgie ALVAREZ and agree with the information documented. I spent a total of 20 minutes coordinating, documenting, and providing care for this patient excluding time spent in the performance of separately billed services. All of the aforementioned completed outside of collaborating with the assigned advanced practitioner for a full treatment plan. I have reviewed the advanced practitioner's documentation, and I agree with, and take responsibility for the plan of care
== END 2024-11-08 10:36 | disposition home health service (06) | DRG 964 ==
LOC: ED 19:06 → 4W 11-01 01:41 → SUATTDRO 11-01 01:41 → 4W 11-01 02:29 → 3N 11-01 21:36